=== PATIENT | female | born 1955 | race Caucasian/White ===

== ENCOUNTER 2017-09-11 17:54 | Inpatient (IN) | payer MEDICARE, OTHER ==
[~2017-09-11] VITALS: Ht 154.9 cm; Wt 111.1 kg
[2017-09-11 19:42] LABS: BACTERIA,URINE FEW /HPF (0-FEW); BILIRUBIN,URINE NEG (NEG); CLARITY,URINE CLOUDY; COLOR,URINE YELLOW; GLUCOSE,URINE NEG (NEG); NITRITE,URINE NEG (NEG); RBC,URINE 0 /HPF (0-2); SQUAMOUS EPITHELIAL CELL,UR MANY /LPF; UROBILINOGEN,URINE 0.2 mg/dL (0.2 mg/dL)
[2017-09-11 20:23] LABS: BASO # 0.1 x10^3/uL (0.0-0.2); BASO % 1 % (0-3); EOS # 0.5 x10^3/uL (0.0-0.7); EOS % 4 % (0-3); HEMATOCRIT 36.9 % (36.0-47.0); LYMPH # 2.3 x10^3/uL (1.0-4.8); LYMPH % 19 % (24-48); MEAN CORPUSCULAR HEMOGLOBIN 26 pg (25-35); MEAN CORPUSCULAR HGB CONC 32 g/dL (31-37); MEAN CORPUSCULAR VOLUME 79 fL (79-100); MONO % 8 % (0-9); NEUT # 8.6 x10^3uL (1.8-7.7); NEUT % 69 % (31-73); PLATELET COUNT 184 x10^3/uL (140-400); RED BLOOD COUNT 4.68 x10^6/uL (3.50-5.40); RED CELL DISTRIBUTION WIDTH 14.8 % (11.5-14.5); WHITE BLOOD COUNT 12.4 x10^3/uL (4.0-11.0)
[2017-09-11 20:32] LABS: ALBUMIN 3.2 g/dL (3.4-5.0); ALBUMIN/GLOBULIN RATIO 0.7 (1.0-1.7); CALCIUM 9.4 mg/dL (8.5-10.1); CREATININE 1.2 mg/dL (0.6-1.0); GFR 45.2; MAGNESIUM 2.1 mg/dL (1.8-2.4); POTASSIUM 4.1 mmol/L (3.5-5.1); TOTAL BILIRUBIN 0.4 mg/dL (0.2-1.0); TOTAL PROTEIN 7.5 g/dL (6.4-8.2)
--- NOTE | 2017-09-11 21:03 | PHYS DOC ---
Past History Past Medical History: Anxiety, CHF, COPD, Diabetes, Hypertension Past Surgical History: No Surgical History Alcohol Use: None Drug Use: None Adult General Chief Complaint Chief Complaint: PSYCH EVALUATION HPI HPI 62-year-old male patient resident of intermediate brought to ER for medical clearance for psychiatric admission. [facility] reported that patient had an abusive behavior against the staff. Patient denies any problem. Review of Systems Review of Systems Constitutional: Denies fever or chills [] Eyes: Denies change in visual acuity, redness, or eye pain [] HENT: Denies nasal congestion or sore throat [] Respiratory: Denies cough or shortness of breath [] Cardiovascular: No additional information not addressed in HPI [] GI: Denies abdominal pain, nausea, vomiting, bloody stools or diarrhea [] : Denies dysuria or hematuria [] Musculoskeletal: Denies back pain or joint pain [] Integument: Denies rash or skin lesions [] Neurologic: Denies headache, focal weakness or sensory changes [] Endocrine: Denies polyuria or polydipsia [] All other systems were reviewed and found to be within normal limits, except as documented in this note. Allergies Allergies Allergies Coded Allergies Type Severity Reaction Last Updated Verified Sulfa (Sulfonamide Antibiotics) Allergy Unknown 09/11/17 Yes niacin Allergy Unknown 09/11/17 Yes tramadol Allergy Unknown 09/11/17 Yes Physical Exam Physical Exam Constitutional: Well developed, well nourished, no acute distress, non-toxic appearance. [] HENT: Normocephalic, atraumatic, bilateral external ears normal, oropharynx moist, no oral exudates, nose normal. [] Eyes: PERRLA, EOMI, conjunctiva normal, no discharge. [] Neck: Normal range of motion, no tenderness, supple, no stridor. [] Cardiovascular:Heart rate regular rhythm, no murmur [] Lungs & Thorax: Bilateral breath sounds clear to auscultation [] Abdomen: Bowel sounds normal, soft, no tenderness, no masses, no pulsatile masses. [] Skin: Warm, dry, no erythema, no rash. [] Back: No tenderness, no CVA tenderness. [] Extremities: No tenderness, no cyanosis, no clubbing, ROM intact, no edema. [] Neurologic: Alert and oriented X 2, normal motor function, normal sensory function, no focal deficits noted. [] Psychologic: Affect normal, judgement normal, mood normal. [] Current Patient Data Vital Signs Vital Signs Date Time Temp Pulse Resp B/P (MAP) Pulse Ox O2 Delivery O2 Flow Rate FiO2 09/11/17 18:00 98.1 86 22 98 Nasal Cannula 3.0 Lab Results Laboratory Tests Test 09/11/17 19:09 09/11/17 19:41 Urine Collection Type Unknown Urine Color Yellow Urine Clarity Cloudy Urine pH 6.5 Urine Specific [place] <=1.005 Urine Protein Neg (NEG-TRACE) Urine Glucose (UA) Neg mg/dL (NEG) Urine Ketones (Stick) Neg mg/dL (NEG) Urine Blood Neg (NEG) Urine Nitrite Neg (NEG) Urine Bilirubin Neg (NEG) Urine Urobilinogen Dipstick 0.2 mg/dL (0.2 mg/dL) Urine Leukocyte Esterase Large (NEG) Urine RBC 0 /HPF (0-2) Urine WBC 11-20 /HPF (0-4) Urine Squamous Epithelial Cells Many /LPF Urine Bacteria Few /HPF (0-FEW) White Blood Count 12.4 x10^3/uL (4.0-11.0) H Red Blood Count 4.68 x10^6/uL (3.50-5.40) Hemoglobin 12.0 g/dL (12.0-15.5) Hematocrit 36.9 % (36.0-47.0) Mean Corpuscular Volume 79 fL (79-100) Mean Corpuscular Hemoglobin 26 pg (25-35) Mean Corpuscular Hemoglobin Concent 32 g/dL (31-37) Red Cell Distribution Width 14.8 % (11.5-14.5) H Platelet Count 184 x10^3/uL (140-400) Neutrophils (%) (Auto) 69 % (31-73) Lymphocytes (%) (Auto) 19 % (24-48) L Monocytes (%) (Auto) 8 % (0-9) Eosinophils (%) (Auto) 4 % (0-3) H Basophils (%) (Auto) 1 % (0-3) Neutrophils # (Auto) 8.6 x10^3uL (1.8-7.7) H Lymphocytes # (Auto) 2.3 x10^3/uL (1.0-4.8) Monocytes # (Auto) 1.0 x10^3/uL (0.0-1.1) Eosinophils # (Auto) 0.5 x10^3/uL (0.0-0.7) Basophils # (Auto) 0.1 x10^3/uL (0.0-0.2) Sodium Level 143 mmol/L (136-145) Potassium Level 4.1 mmol/L (3.5-5.1) Chloride Level 103 mmol/L (98-107) Carbon Dioxide Level 34 mmol/L (21-32) H Anion Gap 6 (6-14) Blood Urea Nitrogen 27 mg/dL (7-20) H Creatinine 1.2 mg/dL (0.6-1.0) H Estimated GFR (Cockcroft-Gault) 45.2 BUN/Creatinine Ratio 23 (6-20) H Glucose Level 77 mg/dL (70-99) Calcium Level 9.4 mg/dL (8.5-10.1) Magnesium Level 2.1 mg/dL (1.8-2.4) Total Bilirubin 0.4 mg/dL (0.2-1.0) Aspartate Amino Transferase (AST) 11 U/L (15-37) L Alanine Aminotransferase (ALT) 24 U/L (14-59) Alkaline Phosphatase 101 U/L (46-116) Total Protein 7.5 g/dL (6.4-8.2) Albumin 3.2 g/dL (3.4-5.0) L Albumin/Globulin Ratio 0.7 (1.0-1.7) L EKG EKG [EKG interpreted by me. EKG at 1827 showed normal sinus rhythm at rate of 88, Q- wave in inferior leads, no acute ST and T wave abnormality] Radiology/Procedures Radiology/Procedures [] Course & Med Decision Making Course & Med Decision Making Pertinent Labs reviewed. (See chart for details) [] Dragon Disclaimer Dragon Disclaimer This electronic medical record was generated, in whole or in part, using a voice recognition dictation system. Departure Departure: Impression: Primary Impression: Medical clearance for psychiatric admission Additional Impressions: Urinary tract infection Renal insufficiency Disposition: ADMITTED INPATIENT ([facility] psych unit at 2100) Condition: STABLE Problem Qualifiers CHAR SOTO MD Sep 11, 2017 21:03
[2017-09-11] MEDS ORDERED: CIPROFLOXACIN HCL 500 MG TABLET PO ONE (21:15)
[2017-09-11] MEDS ORDERED: ASPI-612 PO (22:28)
[2017-09-11] MEDS ORDERED: BISA10SU55 RC (22:28)
[2017-09-11] MEDS ORDERED: ZOLP5TAB PO (22:28)
[2017-09-11] MEDS ORDERED: ALBU1.25 NEB (22:28)
[2017-09-11] MEDS ORDERED: DOXY100T PO (22:28)
[2017-09-11] MEDS ORDERED: BUDE0.5A3 IH (22:28)
[2017-09-11] MEDS ORDERED: CITA20TA9 PO (22:28)
[2017-09-11] MEDS ORDERED: MELA3TAB2 PO (22:28)
[2017-09-11] MEDS ORDERED: METO10TA81 PO (22:28)
[2017-09-11] MEDS ORDERED: SPIR25TA PO (22:28)
[2017-09-11] MEDS ORDERED: VENL75TA PO (22:28)
[2017-09-11] MEDS ORDERED: ATOR40TA59 PO (22:28)
[2017-09-11] MEDS ORDERED: NITR0.4T22 SL (22:28)
[2017-09-11] MEDS ORDERED: IPRA3AMP NEB (22:28)
[2017-09-11] MEDS ORDERED: POLY17PO5 PO (22:28)
[2017-09-11] MEDS ORDERED: LORA10TA3 PO (22:28)
[2017-09-11] MEDS ORDERED: MICO45CR3 TP (22:28)
[2017-09-11] MEDS ORDERED: CELE200C PO (22:28)
[2017-09-11] MEDS ORDERED: METO25TA4 PO (22:28)
[2017-09-11] MEDS ORDERED: FURO40TA4 PO (22:28)
[2017-09-11] MEDS ORDERED: HYDR-2762 PO ×2 (22:28)
[2017-09-11] MEDS ORDERED: PREG100C PO (22:28)
[2017-09-11] MEDS ORDERED: PROP10DR3 OU (22:28)
[2017-09-11] MEDS ORDERED: MONT10TA9 PO (22:28)
[2017-09-11] MEDS ORDERED: INSU100I13 SQ (22:28)
[2017-09-11] MEDS ORDERED: MAG360OR24 PO (22:28)
[2017-09-11] MEDS ORDERED: PANT40TA5 PO (22:28)
[2017-09-11] MEDS ORDERED: MUPI1OIN NS (22:28)
[2017-09-11] MEDS ORDERED: RIVA1PAT23 TD (22:28)
[2017-09-11] MEDS ORDERED: THEO200C PO (22:28)
[2017-09-11] MEDS ORDERED: GABA-585 PO (22:28)
[2017-09-11] MEDS ORDERED: OMEG1CAP30 PO (22:28)
[2017-09-11] MEDS ORDERED: INSU100I17 SQ (22:28)
--- NOTE | 2017-09-11 23:00 | NUR ---
Admission Note with Justification for Admission to [facility] Patient admitted to [facility] for protective oversight for emergency stabilization of acute psychiatric crisis. Pt admitted from: Hospital ER Mode of arrival: EMS Accompanied By: [facility] Staff Precipitating behaviors that initiated intake and admission: delusional, paranoia, threatening staff, self-isolating. Description of failure of out patient attempts at stabilization in previous setting list behavior and medication trials: saw psychologist and clinical delinquency prevention social worker, increased effexor dose Behaviors and assessment findings upon admission: calm, cooperative, pleasant A&O x4 Plan: Admit for protective oversight for adjustment and stabilization of medications, behaviors and mood. Intense treatment regimen including groups, medication adjustments, therapy, consistent regimen for ADL's, self care, and sleep hygiene. Daily monitoring by Inpatient staff, Psychiatry, and Medical Physician.
[2017-09-11] MEDS ORDERED: MAGNESIUM HYDROXIDE 2,400 MG/30 ML ORAL.SUSP. PO PRN (23:30)
[2017-09-11] MEDS ORDERED: METHYL SALICYLATE/MENTHOL TOPICAL OINTMENT 29GM TUBE. TP PRN (23:30)
[2017-09-11] MEDS ORDERED: ACETAMINOPHEN 325 MG TABLET PO PRN (23:30)
[2017-09-11] MEDS ORDERED: MAG HYDROX/AL HYDROX/SIMETH 30 ML ORAL.SUSP PO PRN ×2 (23:30→23:45)
[2017-09-11] MEDS ORDERED: NON FORMULARY ITEM (Albuterol Sulfate (Albuterol Sulfate Neb Soln) 1.25 MG) NEB PRN (23:45)
[2017-09-11] MEDS ORDERED: HYDROcodone/APAP 7.5/325MG 1 TAB TABLET PO PRN ×2 (23:45)
[2017-09-11] MEDS ORDERED: NITROGLYCERIN SUBLINGUAL 0.4 MG BOTTLE OF 25. SL PRN (23:45)
[2017-09-11] MEDS ORDERED: BISACODYL 10 MG SUPP.RECT RC PRN (23:45)
[2017-09-12] MEDS ORDERED: ALBUTEROL SULFATE 2.5 MG/3 ML NEBU. NEB PRN (00:30)
[2017-09-12 02:47] VITALS: BP 136/45
[2017-09-12] MEDS ORDERED: IPRATRPIUM/ALBUTEROL 0.5/2.5MG 3 ML NEBU. ONE (05:17)
[2017-09-12] MEDS: DOXYCYCLINE HYCLATE 100 MG TABLET PO SCH ×2 (05:55→17:56)
[2017-09-12] MEDS: SPIRONOLACTONE 25 MG TABLET PO SCH (05:55)
[2017-09-12 06:02] VITALS: BP 158/64
[2017-09-12] MEDS: IPRATRPIUM/ALBUTEROL 0.5/2.5MG 3 ML NEBU. NEB SCH ×4 (06:11→22:03)
--- NOTE | 2017-09-12 06:44 | EKG ---
[address] [address] Test Date: 2017-09-11 Test Time: 18:27:20 Pat Name: VALERIA YU Department: Room: [address] [place] [address] Gender: F Bolt Maker: : [id number] Requested By: CHAR SOTO Order Number: [id number] Reading MD: Boris Bhatti Measurements Intervals [place] Rate: 88 P: 59 PA: 144 QRS: 26 QRSD: 102 T: 38 QT: 394 QTc: 480 Interpretive Statements SINUS RHYTHM QRS(T) CONTOUR ABNORMALITY CONSISTENT WITH INFERIOR INFARCT PROBABLY OLD ABNORMAL ECG RI6.01 No previous ECG available for comparison Electronically Signed On 09-18-2017 9:15:19 [employer] by Boris Bhatti
[2017-09-12] MEDS ORDERED: POLYVINYL ALCOHOL 1.4% OPHTH SOLUTION 15ML BOTTLE. OU PRN (07:15)
--- NOTE | 2017-09-12 07:32 | NUR ---
SW reviewed Pt insurance upon admit. Face sheet, C-Snap, and intake state Pt insurance is [employer].
[2017-09-12] MEDS: MUPIROCIN 2% TOPICAL OINTMENT 22GM TUBE. TP SCH ×2 (08:30→20:41)
[2017-09-12] MEDS: POLYETHYLENE GLYCOL 3350 17 GM PACKET. PO SCH ×3 (08:32→21:00)
[2017-09-12] MEDS: THEOPHYLLINE ANHYDROUS 400 MG TABLET.ER. PO SCH (08:32)
[2017-09-12] MEDS: RIVASTIGMINE 9.5MG PATCH. TD SCH (08:32)
[2017-09-12] MEDS: PANTOPRAZOLE 40 MG TABLET. PO SCH (08:33)
[2017-09-12] MEDS: GABAPENTIN 100 MG CAPSULE. PO SCH ×3 (08:34→20:35)
[2017-09-12] MEDS: ASPIRIN ENTERIC COATED 81 MG TABLET.DR. PO SCH (08:34)
[2017-09-12] MEDS: CETIRIZINE HCL 10 MG TABLET PO SCH (08:34)
[2017-09-12] MEDS: OMEGA-3 FATTY ACIDS/FISH OIL 1,000 MG CAPSULE. PO SCH ×2 (08:34→20:37)
[2017-09-12] MEDS: CELECOXIB 200 MG CAPSULE PO SCH (08:34)
[2017-09-12] MEDS: VENLAFAXINE 75 MG TABLET. PO SCH ×2 (08:34→20:35)
[2017-09-12] MEDS: METOPROLOL TART IMMED RELEASE 25 MG TABLET PO SCH ×2 (08:34→20:36)
[2017-09-12] MEDS: FUROSEMIDE 40 MG TABLET PO SCH ×2 (08:35→15:03)
[2017-09-12] MEDS: CITALOPRAM 20 MG TABLET. PO SCH (08:35)
[2017-09-12] MEDS: METOCLOPRAMIDE 5 MG TABLET PO SCH ×2 (08:35→15:03)
[2017-09-12] MEDS: INSULIN ASPART 300 UNITS/3 ML INSULN.PEN SQ SCH ×3 (08:43→17:18)
[2017-09-12] MEDS: INSULIN DETEMIR 300 UNITS/3 ML INSULN.PEN. SQ SCH ×2 (08:45→20:44)
[2017-09-12] MEDS ORDERED: OMEGA PO SCH (09:00)
[2017-09-12] MEDS ORDERED: FISH OIL PO SCH (09:00)
[2017-09-12] MEDS ORDERED: INSULIN GLARGINE 300 UNITS/3 ML INSULN.PEN. SQ SCH (09:00)
[2017-09-12] MEDS ORDERED: DHA PO SCH (09:00)
[2017-09-12] MEDS ORDERED: EPA PO SCH (09:00)
[2017-09-12] MEDS ORDERED: PREGABALIN 100 MG CAPSULE PO SCH (09:00)
--- NOTE | 2017-09-12 11:00 | NUR ---
During AM assessment this RN asked pt why she was in the hospital. Pt stated "They told me I needed to be checked for Alzheimer's or Dementia." Pt then went on to talk about how the workers at her facility are doing drugs and are very mean to her. Pt stated that she does not sleep well there because there is a girl that works there that is always picking on her, so she does not like to leave her room. Will continue to monitor.
--- NOTE | 2017-09-12 11:15 | NUR ---
KODY completed Authorization on Dennise with Chilango Gilmore at [phone]. Auth number [id number]. Review with Chilango Gilmore on Saturday.
[2017-09-12] MEDS: BUDESONIDE 0.5 MG/2 ML NEBU IH SCH ×2 (11:56→22:03)
[2017-09-12] MEDS: MICONAZOLE NITRATE 2% TOPICAL CREAM 14GM TUBE. TP SCH ×3 (11:57→21:00)
--- NOTE | 2017-09-12 13:46 | NUR ---
Behavior Intervention Response and Plan: BIRP Note: Behavior: Assumed Care of patient, patient located in Patient Room at shift change. Patient exhibited the following behavior Calm, Interactive, Compliant. Brief assessment on rounds of vital signs, medication needs, lab studies, and pain. Treatment plan problems 1-2. Intervention: Patient assessed and the following interventions initiated safety checks 15 Minute Checks Cognitive Assessment , Head to toe Assessment , Medications. Response: After interactions and interventions patient responded in the following manner, Interactive , Cooperative ,Delusions. Continue to assess behaviors and condition will continue to monitor throughout the shift as needed. Patient educated on ADL's, and hand hygiene. Plan: Continue to monitor Master Treatment Plan for patient's progress toward short term goals of Decreased Agitation, Improved Mood, exterminator helper goals to return to previous living setting vs placement. Continue to assess patient for changes in above assessment. Monitor for medication needs, pain, and safety concerns. Hourly rounding performed to ensure safe environment.
[2017-09-12] MEDS: PREGABALIN 50 MG CAPSULE PO SCH ×2 (15:04→20:37)
[2017-09-12 15:37] VITALS: BP 128/59
[2017-09-12 17:40] LABS: THYROID STIM HORMONE (TSH) 1.25 uIU/mL (0.358-3.740)
[2017-09-12] MEDS ORDERED: PROMETHAZINE 25 MG TABLET. PO PRN (19:00)
[2017-09-12 19:08] LABS: T3 TOTAL 117 ng/dL (71-180); THYROXINE 7.3 ug/dL (4.5-12.0)
--- NOTE | 2017-09-12 19:24 | NUR ---
Dr. Lozano ordered Risperdal QHS whoever there is a reaction with pts schedule Reglan. Pharmacy suggested switching Reglan with Promethazine. Orders received from Dr. Jeronimo for PRN Promethazine Q4hrs and to d/c Reglan. Will continue to monitor.
--- NOTE | 2017-09-12 19:33 | PDOC ---
Exam Note: Gagan Note: Please also refer to the separate dictated note~for this date of service dictated separately.~Patient seen individually. Discussed the patient with Nursing staff reviewed the chart.~Reviewed interim history and current functioning. Reviewed vital signs,~Labs/ Radiology~and current medications noted below. Continue current treatment with the changes noted in the dictated addendum note Assessment: Vital Signs: Vital Signs Date Time Temp Pulse Resp B/P (MAP) Pulse Ox O2 Delivery O2 Flow Rate FiO2 09/12/17 15:37 97.8 84 18 128/59 (82) 94 09/12/17 11:56 3.0 09/11/17 18:00 Nasal Cannula Labs: Laboratory Tests Test 09/11/17 19:41 09/12/17 07:33 09/12/17 11:12 09/12/17 16:42 White Blood Count 12.4 x10^3/uL (4.0-11.0) H Red Blood Count 4.68 x10^6/uL (3.50-5.40) Hemoglobin 12.0 g/dL (12.0-15.5) Hematocrit 36.9 % (36.0-47.0) Mean Corpuscular Volume 79 fL (79-100) Mean Corpuscular Hemoglobin 26 pg (25-35) Mean Corpuscular Hemoglobin Concent 32 g/dL (31-37) Red Cell Distribution Width 14.8 % (11.5-14.5) H Platelet Count 184 x10^3/uL (140-400) Neutrophils (%) (Auto) 69 % (31-73) Lymphocytes (%) (Auto) 19 % (24-48) L Monocytes (%) (Auto) 8 % (0-9) Eosinophils (%) (Auto) 4 % (0-3) H Basophils (%) (Auto) 1 % (0-3) Neutrophils # (Auto) 8.6 x10^3uL (1.8-7.7) H Lymphocytes # (Auto) 2.3 x10^3/uL (1.0-4.8) Monocytes # (Auto) 1.0 x10^3/uL (0.0-1.1) Eosinophils # (Auto) 0.5 x10^3/uL (0.0-0.7) Basophils # (Auto) 0.1 x10^3/uL (0.0-0.2) Sodium Level 143 mmol/L (136-145) Potassium Level 4.1 mmol/L (3.5-5.1) Chloride Level 103 mmol/L (98-107) Carbon Dioxide Level 34 mmol/L (21-32) H Anion Gap 6 (6-14) Blood Urea Nitrogen 27 mg/dL (7-20) H Creatinine 1.2 mg/dL (0.6-1.0) H Estimated GFR (Cockcroft-Gault) 45.2 BUN/Creatinine Ratio 23 (6-20) H Glucose Level 77 mg/dL (70-99) Calcium Level 9.4 mg/dL (8.5-10.1) Magnesium Level 2.1 mg/dL (1.8-2.4) Iron Level 43 ug/dL (50-170) L Total Iron Binding Capacity 359 ug/dL (250-450) Iron Saturation 12 % (15-34) L Total Bilirubin 0.4 mg/dL (0.2-1.0) Aspartate Amino Transferase (AST) 11 U/L (15-37) L Alanine Aminotransferase (ALT) 24 U/L (14-59) Alkaline Phosphatase 101 U/L (46-116) Total Protein 7.5 g/dL (6.4-8.2) Albumin 3.2 g/dL (3.4-5.0) L Albumin/Globulin Ratio 0.7 (1.0-1.7) L Triglycerides Level 104 mg/dL (0-150) Cholesterol Level 143 mg/dL (0-200) LDL Cholesterol, Calculated 78 mg/dL (0-100) VLDL Cholesterol, Calculated 20 mg/dL (0-40) Non-HDL Cholesterol Calculated 98 mg/dL (0-129) HDL Cholesterol 45 mg/dL (40-60) Cholesterol/HDL Ratio 3.0 Vitamin B12 Level 519 pg/mL (247-911) 25-Hydroxy Vitamin D Total 10.6 ng/mL (30-100) L Thyroid Stimulating Hormone (TSH) 1.250 uIU/mL (0.358-3.740) Thyroxine (T4) 7.3 ug/dL (4.5-12.0) Total Triiodothyronine (TT3) 117 ng/dL (71-180) Rapid Plasma Reagin Pending Glucose (Fingerstick) 143 mg/dL (70-99) H 169 mg/dL (70-99) H 129 mg/dL (70-99) H Test 09/12/17 19:08 Glucose (Fingerstick) 165 mg/dL (70-99) H Current Medications: Meds: Current Medications Ciprofloxacin (Cipro) 500 mg 1X ONCE PO Last administered on 09/11/17at 21:31; Start 09/11/17 at 21:15; Stop 09/11/17 at 21:16; Status DC Acetaminophen (Tylenol) 650 mg PRN Q6HRS PRN PO PAIN / TEMP; Start 09/11/17 at 23:30 Multi-Ingredient Ointment (Analgesic Morrow) 1 penelope PRN QID PRN TP MUSCLE PAIN; Start 09/11/17 at 23:30 Al Hydroxide/Mg Hydroxide (Mylanta Plus Xs) 15 ml PRN AFTMEALHC PRN PO DYSPEPSIA Last administered on 09/12/17at 09:42; Start 09/11/17 at 23:30 Magnesium Hydroxide (Milk Of Magnesia) 2,400 mg PRN QHS PRN PO CONSTIPATION; Start 09/11/17 at 23:30 Citalopram Hydrobromide (CeleXA) 20 mg DAILY PO Last administered on 09/12/17at 08:35; Start 09/12/17 at 09:00 Rivastigmine (Exelon) 1 patch DAILY TD Last administered on 09/12/17at 08:32; Start 09/12/17 at 09:00 Venlafaxine HCl (Effexor) 75 mg BID PO Last administered on 09/12/17at 08:34; Start 09/12/17 at 09:00 Melatonin 10 mg HS PO ; Start 09/12/17 at 21:00; Stop 09/12/17 at 21:00; Status DC Aspirin (Aspirin Enteric Coated) 81 mg DAILY PO Last administered on 09/12/17at 08:34; Start 09/12/17 at 09:00 Bisacodyl (Dulcolax Supp) 10 mg PRN DAILY PRN RC CONSTIPATION; Start 09/11/17 at 23:45 Budesonide (Pulmicort) 0.5 mg BID IH Last administered on 09/12/17at 11:56; Start 09/12/17 at 09:00 Celecoxib (CeleBREX) 200 mg DAILY PO Last administered on 09/12/17at 08:34; Start 09/12/17 at 09:00 Doxycycline Hyclate (Vibra-Tab) 100 mg BID66 PO Last administered on 09/12/17at 17:56; Start 09/12/17 at 06:00 Furosemide (Lasix) 40 mg BID92 PO Last administered on 09/12/17at 15:03; Start 09/12/17 at 09:00 Gabapentin (Neurontin) 100 mg TID PO Last administered on 09/12/17at 15:03; Start 09/12/17 at 09:00 Acetaminophen/ Hydrocodone Bitart (Lortab 7.5/325) 1 tab PRN Q4HRS PRN PO PAIN ; Start 09/11/17 at 23:45 Acetaminophen/ Hydrocodone Bitart (Lortab 7.5/325) 1 tab PRN QID PRN PO PAIN; Start 09/11/17 at 23:45 Insulin Aspart (NovoLOG) 22 units TIDAC SQ Last administered on 09/12/17at 17:18 ; Start 09/12/17 at 07:30 Insulin Glargine (Lantus) 70 units BID SQ ; Start 09/12/17 at 09:00; Stop at 09:00; Status DC Albuterol/ Ipratropium (Duoneb) 3 ml RTQID NEB Last administered on 09/12/17at 11:56; Start 09/12/17 at 08:00 Metoclopramide HCl (Reglan) 2.5 mg TID PO Last administered on 09/12/17at 15:03 ; Start 09/12/17 at 09:00; Stop 09/12/17 at 19:21; Status DC Metoprolol Tartrate (Lopressor) 25 mg BID PO Last administered on 09/12/17at 08: 34; Start 09/12/17 at 09:00 Montelukast Sodium (Singulair) 10 mg HS PO ; Start 09/12/17 at 21:00 Nitroglycerin (Nitrostat) 0.4 mg PRN Q5MIN PRN SL CHEST PAIN; Start 09/11/17 at 23:45 Pantoprazole Sodium (Protonix) 20 mg DAILYAC PO Last administered on 09/12/17at 08:33; Start 09/12/17 at 07:30 Polyethylene Glycol (miraLAX) 17 gm BID PO Last administered on 09/12/17at 08:32 ; Start 09/12/17 at 09:00 Pregabalin (Lyrica) 100 mg TID PO Last administered on 09/12/17at 08:35; Start 09/12/17 at 09:00; Stop 09/12/17 at 15:02; Status DC Spironolactone (Aldactone) 25 mg DAILY07 PO Last administered on 09/12/17at 05: 55; Start 09/12/17 at 07:00 Zolpidem Tartrate (Ambien) 5 mg QHS PO ; Start 09/12/17 at 21:00; Stop 09/12/17 at 21:00; Status DC Non-Formulary Medication 1.25 mg PRN PRN NEB SHORTNESS OF BREATH; Start at 23:45; Status UNV Atorvastatin Calcium (Lipitor) 40 mg HS PO ; Start 09/12/17 at 21:00 Cetirizine HCl (ZyrTEC) 10 mg DAILY PO Last administered on 09/12/17at 08:34; Start 09/12/17 at 09:00 Al Hydroxide/Mg Hydroxide (Mylanta Plus Xs) 10 ml PRN AFTMEAL PRN PO DYSPEPSIA ; Start 09/11/17 at 23:45 Miconazole Nitrate (Monistat-Derm) 1 penelope BID TP Last administered on 09/12/17at 11:57; Start 09/12/17 at 09:00 Mupirocin (Bactroban) 1 penelope BID TP Last administered on 09/12/17at 08:30; Start 09/12/17 at 09:00 Non-Formulary Medication 2 each BID PO ; Start 09/12/17 at 09:00; Status UNV Fish Oil (Fish Oil) 2,000 mg BID PO Last administered on 09/12/17at 08:34; Start 09/12/17 at 09:00 Artificial Tears (Artificial Tears) 2 drop PRN QID PRN OU DRY EYE; Start at 07:15 Theophylline (Theophylline Extended Release) 200 mg DAILY PO Last administered on 09/12/17at 08:32; Start 09/12/17 at 09:00 Albuterol Sulfate (Ventolin) 2.5 mg PRN Q6HRS PRN NEB SHORTNESS OF BREATH; Start 09/12/17 at 00:30 Albuterol/ Ipratropium (Duoneb) 3 ml STK-MED ONCE .ROUTE ; Start 09/12/17 at 05: 17; Stop 09/12/17 at 05:18; Status DC Insulin Detemir (Levemir) 70 units BID SQ Last administered on 09/12/17at 08:45 ; Start 09/12/17 at 09:00 Melatonin 6 mg HS PO ; Start 09/12/17 at 21:00 Trazodone HCl (Desyrel) 100 mg QHS PO ; Start 09/12/17 at 21:00 Trazodone HCl (Desyrel) 100 mg PRN QHS PRN PO insomnia ; Start 09/12/17 at 21: 00 Pregabalin (Lyrica) 100 mg TID PO Last administered on 09/12/17at 15:04; Start 09/12/17 at 14:00 Vitamin D (Vitamin D3) 50,000 unit WEEKLY PO ; Start 09/19/17 at 09:00 Promethazine HCl (Phenergan) 12.5 mg PRN Q4HRS PRN PO NAUSEA/VOMITING; Start at 19:00 Risperidone (RisperDAL) 0.5 mg QHS PO ; Start 09/12/17 at 21:00 Active Scripts Active Reported Venlafaxine Hcl 75 Mg Tablet 75 Mg PO BID Naldo-24 (Theophylline Anhydrous) 200 Mg Cap.er.24h 200 Mg PO DAILY Systane Ultra 0.4-0.3% Eye Drp (Propylene Glycol/Peg 400) 10 Ml Drops 2 Drop OU PRN QID PRN Pulmicort (Budesonide) 0.5 Mg/2 Ml Ampul.neb 0.5 Mg IH BID Pantoprazole Sodium 40 Mg Tablet.dr 20 Mg PO DAILY Novolog Flexpen (Insulin Aspart) 100 Unit/1 Ml Insuln.pen 22 Units SQ TIDAC Hydrocodone-Apap 7.5-325 (Hydrocodone Bit/Acetaminophen) 1 Each Tablet 1 Tab PO QID PRN Hydrocodone-Apap 7.5-325 (Hydrocodone Bit/Acetaminophen) 1 Each Tablet 1 Tab PO PRN Q4HRS PRN NITROGLYCERIN SubLingual (Nitroglycerin) 0.4 Mg Tab.subl 0.4 Mg SL PRN Q5MIN PRN Alum-Mag Hydroxide-Simeth Liq (Mag Hydrox/Al Hydrox/Simeth) 360 Ml Oral.susp 10 Ml PO PRN AFTMEAL PRN Montelukast Sodium Tablet (Montelukast Sodium) 10 Mg Tablet 10 Mg PO DAILY Miralax (Polyethylene Glycol 3350) 17 Gm Powd.pack 17 Gm PO BID Miconazole Nitrate 45 Gm Cream.appl 1 Penelope TP BID Metoprolol Tartrate 25 Mg Tablet 25 Mg PO BID Reglan (Metoclopramide Hcl) 10 Mg Tablet 2.5 Mg PO TID Melatonin 3 Mg Tablet 10 Mg PO HS Lyrica (Pregabalin) 100 Mg Capsule 100 Mg PO TID Lantus Solostar (Insulin Glargine,Hum.rec.anlog) 100 Unit/1 Ml Insuln.pen 70 Units SQ BID Gabapentin 100 Mg Capsule 100 Mg PO TID Furosemide 40 Mg Tablet 40 Mg PO BID Fish Oil 1,000 Mg Softgel ([place]-3/Dha/Epa/Fish Oil) 1 Each Capsule 2 Each PO BID Fish Oil 1,000 Mg Softgel ([place]-3/Dha/Epa/Fish Oil) 1 Each Capsule 2 Each PO BID EXELON 9.5mg/24hr (Rivastigmine) 1 Each Patch.td24 1 Patch TD Duoneb 0.5-3(2.5) Mg/3 Ml (Albuterol/Ipratropium) 3 Ml Ampul.neb 3 Ml NEB QID Dulcolax (Bisacodyl) 10 Mg Supp.rect 10 Mg RC PRN DAILY PRN Doxycycline Hyclate 100 Mg Tablet 100 Mg PO BID Loratadine 10 Mg Tablet 10 Mg PO DAILY Celexa (Citalopram Hydrobromide) 20 Mg Tablet 20 Mg PO DAILY Celebrex (Celecoxib) 200 Mg Capsule 200 Mg PO DAILY Bactroban Nasal (Mupirocin Calcium) 1 Gm Oint...g. 1 Penelope NS BID Atorvastatin Calcium 40 Mg Tablet 40 Mg PO DAILY Aspirin Ec (Aspirin) 81 Mg Tablet.dr 81 Mg PO DAILY Ambien (Zolpidem Tartrate) 5 Mg Tablet 5 Mg PO QHS Aldactone (Spironolactone) 25 Mg Tablet 25 Mg PO DAILY07 Albuterol Sulfate Neb Soln (Albuterol Sulfate) 1.25 Mg/3 Ml Vial.neb 1.25 Mg NEB PRN PRN I have reviewed the current psychotropics carefully including drug interactions. Risk benefit ratio favors no change other than as noted in my dictated progress note. Diagnosis: Problems: (1) Medical clearance for psychiatric admission ROSA GRAMAJO MD Sep 12, 2017 19:33
--- NOTE | 2017-09-12 20:00 | NUR ---
Pt refs miralax stating she is having loose stools.
[2017-09-12] MEDS: risperiDONE 0.5 MG TABLET. PO SCH (20:42)
[2017-09-12] MEDS: MELATONIN 3 MG TABLET PO SCH (20:42)
[2017-09-12] MEDS: ATORVASTATIN CALCIUM 20 MG TABLET PO SCH (20:42)
[2017-09-12] MEDS: MONTELUKAST 10 MG TABLET. PO SCH (20:42)
[2017-09-12] MEDS: traZODone 100 MG TABLET. PO SCH (20:43)
[2017-09-12] MEDS ORDERED: traZODone 100 MG TABLET. PO PRN (21:00)
[2017-09-12] MEDS ORDERED: ZOLPIDEM 5 MG TABLET. PO SCH (21:00)
[2017-09-12] MEDS ORDERED: MELATONIN 3 MG TABLET PO SCH (21:00)
--- NOTE | 2017-09-12 21:38 | NUR ---
Behavior Intervention Response and Plan: BIRP Note: Behavior: Assumed Care of patient, patient located in Patient Room at shift change. Patient exhibited the following behavior Calm, Able to Focus on Task, Interactive. Brief assessment on rounds of vital signs, medication needs, lab studies, and pain. Treatment plan problems .1&2 Intervention: Patient assessed and the following interventions initiated safety checks 15 Minute Checks Cognitive Assessment , Head to toe Assessment , Medications. Response: After interactions and interventions patient responded in the following manner, Appropriate , Compliant ,Cooperative. Continue to assess behaviors and condition will continue to monitor throughout the shift as needed. Patient educated on ADL's, and hand hygiene. Plan: Continue to monitor Master Treatment Plan for patient's progress toward short term goals of Improved Mood, Decreased Anxiety, snf goals to return to previous living setting vs placement. Continue to assess patient for changes in above assessment. Monitor for medication needs, pain, and safety concerns. Hourly rounding performed to ensure safe environment.
[2017-09-13] MEDS: SPIRONOLACTONE 25 MG TABLET PO SCH (05:44)
[2017-09-13] MEDS: DOXYCYCLINE HYCLATE 100 MG TABLET PO SCH ×2 (05:44→17:54)
[2017-09-13] MEDS: IPRATRPIUM/ALBUTEROL 0.5/2.5MG 3 ML NEBU. NEB SCH ×4 (05:56→20:19)
[2017-09-13 06:00] VITALS: BP 148/69
[2017-09-13] MEDS: CELECOXIB 200 MG CAPSULE PO SCH (07:55)
[2017-09-13] MEDS: POLYETHYLENE GLYCOL 3350 17 GM PACKET. PO SCH ×2 (07:55→19:47)
[2017-09-13] MEDS: FUROSEMIDE 40 MG TABLET PO SCH ×2 (07:55→12:46)
[2017-09-13] MEDS: GABAPENTIN 100 MG CAPSULE. PO SCH ×3 (07:56→19:46)
[2017-09-13] MEDS: CITALOPRAM 20 MG TABLET. PO SCH (07:56)
[2017-09-13] MEDS: ASPIRIN ENTERIC COATED 81 MG TABLET.DR. PO SCH (07:56)
[2017-09-13] MEDS: PANTOPRAZOLE 40 MG TABLET. PO SCH (07:56)
[2017-09-13] MEDS: OMEGA-3 FATTY ACIDS/FISH OIL 1,000 MG CAPSULE. PO SCH ×2 (07:56→19:45)
[2017-09-13] MEDS: PREGABALIN 50 MG CAPSULE PO SCH ×3 (07:56→19:51)
[2017-09-13] MEDS: CETIRIZINE HCL 10 MG TABLET PO SCH (07:57)
[2017-09-13] MEDS: METOPROLOL TART IMMED RELEASE 25 MG TABLET PO SCH ×2 (07:57→19:47)
[2017-09-13] MEDS: VENLAFAXINE 75 MG TABLET. PO SCH ×2 (07:57→19:46)
[2017-09-13] MEDS: THEOPHYLLINE ANHYDROUS 400 MG TABLET.ER. PO SCH (07:59)
[2017-09-13] MEDS: MUPIROCIN 2% TOPICAL OINTMENT 22GM TUBE. TP SCH ×2 (07:59→19:52)
[2017-09-13] MEDS: MICONAZOLE NITRATE 2% TOPICAL CREAM 14GM TUBE. TP SCH (07:59)
[2017-09-13] MEDS: INSULIN ASPART 300 UNITS/3 ML INSULN.PEN SQ SCH ×3 (08:00→17:56)
[2017-09-13] MEDS: INSULIN DETEMIR 300 UNITS/3 ML INSULN.PEN. SQ SCH ×2 (08:02→20:36)
[2017-09-13] MEDS: RIVASTIGMINE 9.5MG PATCH. TD SCH (08:02)
[2017-09-13] MEDS: NYSTATIN TOPICAL POWDER 15GM BOTTLE. TP SCH ×2 (09:00→20:36)
--- NOTE | 2017-09-13 09:01 | HP ---
ADMIT DATE: 09/12/2017 PSYCHIATRIC ADMISSION HISTORY/EVALUATION IDENTIFYING DATA: The patient is a 62-year-old female referred to us from [facility] by Dr. Haim Borjas, primary care physician, on account of worsening delusions, marked paranoia, threatening staff, isolating herself. The patient believes things are happening at the facility that is targeting her, believe people at the same facility are doing drugs. She has been getting increasingly aggressive, threatening staff ____ behaviors dangerous, out of control. Having failed outpatient psychiatric intervention, she requires inpatient psychiatric stabilization. CHIEF COMPLAINT: "Yes, they do these things. It is not in my mind." HISTORY OF PRESENT ILLNESS: The patient has a history of major depressive disorder, possible bipolar disorder, borderline personality disorder, anxiety disorder. More recently, she has had marked exacerbation of her psychosis, sleep and appetite changes and has been threatening staff. No active suicidal or homicidal ideation. She does have a history of mood swing/bipolar disorder. PAST PSYCHIATRIC HISTORY: As noted above. PAST MEDICAL HISTORY: The patient has UTI and was treated on Cipro in the ER at [facility]. She does have a history of COPD, CHF, diabetes mellitus, hypertension, sleep apnea, asthma, GERD. Accu-Chek a.c. and at bedtime. CODE STATUS: Full code. ALLERGIES: NIACIN, TRAMADOL, SULFA. She ambulates with a walker. CURRENT PSYCHOTROPICS: Celexa 20 mg a day, Exelon patch 9.5 mg a day, melatonin 6 mg at bedtime, Effexor 75 mg b.i.d., trazodone 100 mg at bedtime, ____ mg p.r.n. FAMILY HISTORY: Noncontributory. SOCIAL HISTORY: No alcohol, drug abuse, physical, sexual or elder abuse history is noted. Not known to be a perpetrator. MENTAL STATUS EXAMINATION: The patient seen individually on 09/12/2017 ____. She is quite anxious, paranoid, suspicious. Speech coherent, abstraction fair, computation impaired, language function intact, attention span short. Mood and affect somewhat labile, quite paranoid, psychotic as I carefully assessed her. Denies active suicidal ideations with threats towards the staff at the alf have been significant. IMPRESSION: Bipolar 1 disorder, mixed with psychotic features; anxiety disorder, unspecified, borderline personality disorder, history of major depressive disorder with psychotic features, urinary tract infection. Rest as above. PLAN: Admit to geropsychiatry unit at [facility]. I will see the patient daily individually from a psychiatric standpoint, medical followup per Dr. Paredes/Dr. Jeronimo. The patient has been quite psychotic. Restart Risperdal 0.5 mg p.o. at bedtime. She is on 2 antidepressants Celexa and Effexor. We will stop the Celexa, continue Effexor. We have also added Zyprexa. We may consider adding Depakote as a mood stabilizer, but I would like to see how she does with the resolution of UTI and the initiation of Risperdal for now and additionally the discontinuation of Celexa together with Effexor, which could be worsening some of her psychotic symptoms as well, especially within the context of bipolar disorder. ROSA GRAMAJO MD DR: NITESH/anika JOB#: [id number] / [id number]
--- NOTE | 2017-09-13 09:45 | NUR ---
Behavior Intervention Response and Plan: BIRP Note: Behavior: Assumed Care of patient, patient located in Dining Room at shift change. Patient exhibited the following behavior Calm, Withdrawn, Compliant. Brief assessment on rounds of vital signs, medication needs, lab studies, and pain. Treatment plan problems . Intervention: Patient assessed and the following interventions initiated safety checks 15 Minute Checks Cognitive Assessment , Head to toe Assessment , Medications. Response: After interactions and interventions patient responded in the following manner, Calm , Compliant ,Cooperative. Continue to assess behaviors and condition will continue to monitor throughout the shift as needed. Patient educated on ADL's, and hand hygiene. 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 Continue to assess patient for changes in above assessment. Monitor for medication needs, pain, and safety concerns. Hourly rounding performed to ensure safe environment.
[2017-09-13] MEDS: BUDESONIDE 0.5 MG/2 ML NEBU IH SCH ×2 (10:07→20:19)
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
--- NOTE | 2017-09-13 15:28 | NUR ---
KODY called and spoke with pt Andrew, Andrew reports pt has not been to a psychiatric facility prior, and hasn't been given a diagnosis that he is aware of prior. At this time pt has no other questions.
--- NOTE | 2017-09-13 15:30 | NUR ---
Activity Therapy Assessment: Patient was sitting quietly within her wheelchair during the assessment. Patient was well dressed and had a neat orientation. Patient uses a wheelchair to ambulate and may need help with some ADLs. Patient also uses an oxygen tank to assist her in breathing. Patient impulses and frustration are controlled during the assessment and observation. Patient makes eye contact, listens, and can clearly communicate and express how she feels. Initial Treatment Goals: To attend 1 group per day that will increase her socialization and motivation. Addendum: 09/16/17 at 1536 by NEIL HOANG ACT Change goal to: Pt. will participate in all groups she is invited to. Nubia
[2017-09-13 16:07] VITALS: BP 122/62
--- NOTE | 2017-09-13 16:51 | NUR ---
pt has been withdrawn to room at times. did come out to day room in afternoon and played cards with another peer. has been compliant with meds and cares. has not voices any paranoid or delusional thoughts thus far. pt out to all meals.
[2017-09-13] MEDS: traZODone 100 MG TABLET. PO SCH (19:45)
[2017-09-13] MEDS: ATORVASTATIN CALCIUM 20 MG TABLET PO SCH (19:45)
[2017-09-13] MEDS: MONTELUKAST 10 MG TABLET. PO SCH (19:45)
[2017-09-13] MEDS: risperiDONE 0.5 MG TABLET. PO SCH (19:45)
--- NOTE | 2017-09-13 19:45 | PDOC ---
Exam Note: Gagan Note: Please also refer to the separate dictated note~for this date of service dictated separately.~Patient seen individually. Discussed the patient with Nursing staff reviewed the chart.~Reviewed interim history and current functioning. Reviewed vital signs,~Labs/ Radiology~and current medications noted below. Continue current treatment with the changes noted in the dictated addendum note Assessment: Vital Signs: Vital Signs Date Time Temp Pulse Resp B/P (MAP) Pulse Ox O2 Delivery O2 Flow Rate FiO2 09/13/17 16:11 98 Nasal Cannula 3.0 09/13/17 16:07 99.0 80 16 122/62 (82) I&O Intake and Output 09/13/17 07:00 Intake Total 840 ml Balance 840 ml Intake Oral 840 ml Labs: Laboratory Tests Test 09/13/17 07:13 09/13/17 11:14 09/13/17 16:32 Glucose (Fingerstick) 98 mg/dL (70-99) 150 mg/dL (70-99) H 126 mg/dL (70-99) H Current Medications: Meds: Current Medications Ciprofloxacin (Cipro) 500 mg 1X ONCE PO Last administered on 09/11/17at 21:31; Start 09/11/17 at 21:15; Stop 09/11/17 at 21:16; Status DC Acetaminophen (Tylenol) 650 mg PRN Q6HRS PRN PO PAIN / TEMP; Start 09/11/17 at 23:30 Multi-Ingredient Ointment (Analgesic [place]) 1 penelope PRN QID PRN TP MUSCLE PAIN; Start 09/11/17 at 23:30 Al Hydroxide/Mg Hydroxide (Mylanta Plus Xs) 15 ml PRN AFTMEALHC PRN PO DYSPEPSIA Last administered on 09/12/17at 09:42; Start 09/11/17 at 23:30 Magnesium Hydroxide (Milk Of Magnesia) 2,400 mg PRN QHS PRN PO CONSTIPATION; Start 09/11/17 at 23:30 Citalopram Hydrobromide (CeleXA) 20 mg DAILY PO Last administered on 09/13/17at 07:56; Start 09/12/17 at 09:00 Rivastigmine (Exelon) 1 patch DAILY TD Last administered on 09/13/17at 08:02; Start 09/12/17 at 09:00 Venlafaxine HCl (Effexor) 75 mg BID PO Last administered on 09/13/17at 07:57; Start 09/12/17 at 09:00 Melatonin 10 mg HS PO ; Start 09/12/17 at 21:00; Stop 09/12/17 at 21:00; Status DC Aspirin (Aspirin Enteric Coated) 81 mg DAILY PO Last administered on 09/13/17at 07:56; Start 09/12/17 at 09:00 Bisacodyl (Dulcolax Supp) 10 mg PRN DAILY PRN RC CONSTIPATION; Start 09/11/17 at 23:45 Budesonide (Pulmicort) 0.5 mg BID IH Last administered on 09/13/17at 10:07; Start 09/12/17 at 09:00 Celecoxib (CeleBREX) 200 mg DAILY PO Last administered on 09/13/17 07:55; Start 09/12/17 at 09:00 Doxycycline Hyclate (Vibra-Tab) 100 mg BID66 PO Last administered on 09/13/17at 17:54; Start 09/12/17 at 06:00 Furosemide (Lasix) 40 mg BID92 PO Last administered on 09/13/17at 12:46; Start 09/12/17 at 09:00 Gabapentin (Neurontin) 100 mg TID PO Last administered on 09/13/17at 12:46; Start 09/12/17 at 09:00 Acetaminophen/ Hydrocodone Bitart (Lortab 7.5/325) 1 tab PRN Q4HRS PRN PO PAIN ; Start 09/11/17 at 23:45 Acetaminophen/ Hydrocodone Bitart (Lortab 7.5/325) 1 tab PRN QID PRN PO PAIN; Start 09/11/17 at 23:45 Insulin Aspart (NovoLOG) 22 units TIDAC SQ Last administered on 09/13/17at 17:56 ; Start 09/12/17 at 07:30 Insulin Glargine (Lantus) 70 units BID SQ ; Start 09/12/17 at 09:00; Stop at 09:00; Status DC Albuterol/ Ipratropium (Duoneb) 3 ml RTQID NEB Last administered on 09/13/17at 16:00; Start 09/12/17 at 08:00 Metoclopramide HCl (Reglan) 2.5 mg TID PO Last administered on 09/12/17at 15:03 ; Start 09/12/17 at 09:00; Stop 09/12/17 at 19:21; Status DC Metoprolol Tartrate (Lopressor) 25 mg BID PO Last administered on 09/13/17at 07: 57; Start 09/12/17 at 09:00 Montelukast Sodium (Singulair) 10 mg HS PO Last administered on 09/12/17at 20:42 ; Start 09/12/17 at 21:00 Nitroglycerin (Nitrostat) 0.4 mg PRN Q5MIN PRN SL CHEST PAIN; Start 09/11/17 at 23:45 Pantoprazole Sodium (Protonix) 20 mg DAILYAC PO Last administered on 09/13/17at 07:56; Start 09/12/17 at 07:30 Polyethylene Glycol (miraLAX) 17 gm BID PO Last administered on 09/13/17at 07:55 ; Start 09/12/17 at 09:00 Pregabalin (Lyrica) 100 mg TID PO Last administered on 09/12/17at 08:35; Start 09/12/17 at 09:00; Stop 09/12/17 at 15:02; Status DC Spironolactone (Aldactone) 25 mg DAILY07 PO Last administered on 09/13/17at 05: 44; Start 09/12/17 at 07:00 Zolpidem Tartrate (Ambien) 5 mg QHS PO ; Start 09/12/17 at 21:00; Stop 09/12/17 at 21:00; Status DC Non-Formulary Medication 1.25 mg PRN PRN NEB SHORTNESS OF BREATH; Start at 23:45; Status UNV Atorvastatin Calcium (Lipitor) 40 mg HS PO Last administered on 09/12/17at 20:42 ; Start 09/12/17 at 21:00 Cetirizine HCl (ZyrTEC) 10 mg DAILY PO Last administered on 09/13/17at 07:57; Start 09/12/17 at 09:00 Al Hydroxide/Mg Hydroxide (Mylanta Plus Xs) 10 ml PRN AFTMEAL PRN PO DYSPEPSIA ; Start 09/11/17 at 23:45 Miconazole Nitrate (Monistat-Derm) 1 penelope BID TP Last administered on 09/13/17at 07:59; Start 09/12/17 at 09:00; Stop 09/13/17 at 09:03; Status DC Mupirocin (Bactroban) 1 penelope BID TP Last administered on 09/13/17at 07:59; Start 09/12/17 at 09:00 Non-Formulary Medication 2 each BID PO ; Start 09/12/17 at 09:00; Status UNV Fish Oil (Fish Oil) 2,000 mg BID PO Last administered on 09/13/17at 07:56; Start 09/12/17 at 09:00 Artificial Tears (Artificial Tears) 2 drop PRN QID PRN OU DRY EYE; Start at 07:15 Theophylline (Theophylline Extended Release) 200 mg DAILY PO Last administered on 09/13/17at 07:59; Start 09/12/17 at 09:00 Albuterol Sulfate (Ventolin) 2.5 mg PRN Q6HRS PRN NEB SHORTNESS OF BREATH; Start 09/12/17 at 00:30 Albuterol/ Ipratropium (Duoneb) 3 ml STK-MED ONCE .ROUTE ; Start 09/12/17 at 05: 17; Stop 09/12/17 at 05:18; Status DC Insulin Detemir (Levemir) 70 units BID SQ Last administered on 09/13/17at 08:02 ; Start 09/12/17 at 09:00 Melatonin 6 mg HS PO Last administered on 09/12/17at 20:42; Start 09/12/17 at 21 :00 Trazodone HCl (Desyrel) 100 mg QHS PO Last administered on 09/12/17at 20:43; Start 09/12/17 at 21:00 Trazodone HCl (Desyrel) 100 mg PRN QHS PRN PO insomnia ; Start 09/12/17 at 21: 00 Pregabalin (Lyrica) 100 mg TID PO Last administered on 09/13/17at 12:46; Start 09/12/17 at 14:00 Vitamin D (Vitamin D3) 50,000 unit WEEKLY PO ; Start 09/19/17 at 09:00 Promethazine HCl (Phenergan) 12.5 mg PRN Q4HRS PRN PO NAUSEA/VOMITING; Start at 19:00 Risperidone (RisperDAL) 0.5 mg QHS PO Last administered on 09/12/17at 20:42; Start 09/12/17 at 21:00 Nystatin (Nystop) 1 penelope BID TP Last administered on 09/13/17at 09:00; Start at 09:00 Active Scripts Active Reported Venlafaxine Hcl 75 Mg Tablet 75 Mg PO BID Naldo-24 (Theophylline Anhydrous) 200 Mg Cap.er.24h 200 Mg PO DAILY Systane Ultra 0.4-0.3% Eye Drp (Propylene Glycol/Peg 400) 10 Ml Drops 2 Drop OU PRN QID PRN Pulmicort (Budesonide) 0.5 Mg/2 Ml Ampul.neb 0.5 Mg IH BID Pantoprazole Sodium 40 Mg Tablet.dr 20 Mg PO DAILY Novolog Flexpen (Insulin Aspart) 100 Unit/1 Ml Insuln.pen 22 Units SQ TIDAC Hydrocodone-Apap 7.5-325 (Hydrocodone Bit/Acetaminophen) 1 Each Tablet 1 Tab PO QID PRN Hydrocodone-Apap 7.5-325 (Hydrocodone Bit/Acetaminophen) 1 Each Tablet 1 Tab PO PRN Q4HRS PRN NITROGLYCERIN SubLingual (Nitroglycerin) 0.4 Mg Tab.subl 0.4 Mg SL PRN Q5MIN PRN Alum-Mag Hydroxide-Simeth Liq (Mag Hydrox/Al Hydrox/Simeth) 360 Ml Oral.susp 10 Ml PO PRN AFTMEAL PRN Montelukast Sodium Tablet (Montelukast Sodium) 10 Mg Tablet 10 Mg PO DAILY Miralax (Polyethylene Glycol 3350) 17 Gm Powd.pack 17 Gm PO BID Miconazole Nitrate 45 Gm Cream.appl 1 Penelope TP BID Metoprolol Tartrate 25 Mg Tablet 25 Mg PO BID Reglan (Metoclopramide Hcl) 10 Mg Tablet 2.5 Mg PO TID Melatonin 3 Mg Tablet 10 Mg PO HS Lyrica (Pregabalin) 100 Mg Capsule 100 Mg PO TID Lantus Solostar (Insulin Glargine,Hum.rec.anlog) 100 Unit/1 Ml Insuln.pen 70 Units SQ BID Gabapentin 100 Mg Capsule 100 Mg PO TID Furosemide 40 Mg Tablet 40 Mg PO BID Fish Oil 1,000 Mg Softgel ([place]-3/Dha/Epa/Fish Oil) 1 Each Capsule 2 Each PO BID Fish Oil 1,000 Mg Softgel ([place]-3/Dha/Epa/Fish Oil) 1 Each Capsule 2 Each PO BID EXELON 9.5mg/24hr (Rivastigmine) 1 Each Patch.td24 1 Patch TD Duoneb 0.5-3(2.5) Mg/3 Ml (Albuterol/Ipratropium) 3 Ml Ampul.neb 3 Ml NEB QID Dulcolax (Bisacodyl) 10 Mg Supp.rect 10 Mg RC PRN DAILY PRN Doxycycline Hyclate 100 Mg Tablet 100 Mg PO BID Loratadine 10 Mg Tablet 10 Mg PO DAILY Celexa (Citalopram Hydrobromide) 20 Mg Tablet 20 Mg PO DAILY Celebrex (Celecoxib) 200 Mg Capsule 200 Mg PO DAILY Bactroban Nasal (Mupirocin Calcium) 1 Gm Oint...g. 1 Penelope NS BID Atorvastatin Calcium 40 Mg Tablet 40 Mg PO DAILY Aspirin Ec (Aspirin) 81 Mg Tablet.dr 81 Mg PO DAILY Ambien (Zolpidem Tartrate) 5 Mg Tablet 5 Mg PO QHS Aldactone (Spironolactone) 25 Mg Tablet 25 Mg PO DAILY07 Albuterol Sulfate Neb Soln (Albuterol Sulfate) 1.25 Mg/3 Ml Vial.neb 1.25 Mg NEB PRN PRN I have reviewed the current psychotropics carefully including drug interactions. Risk benefit ratio favors no change other than as noted in my dictated progress note. Diagnosis: Problems: (1) Urinary tract infection (2) Medical clearance for psychiatric admission (3) Bipolar affective disorder, mixed (4) Anxiety disorder (5) Major depressive disorder, recurrent episode ROSA GRAMAJO MD Sep 13, 2017 19:45
[2017-09-13] MEDS: MELATONIN 3 MG TABLET PO SCH (19:46)
--- NOTE | 2017-09-14 03:04 | NUR ---
Behavior Intervention Response and Plan: BIRP Note: Behavior: Assumed Care of patient, patient located in Dining Room at shift change. Patient exhibited the following behavior Calm, Withdrawn, Compliant. Brief assessment on rounds of vital signs, medication needs, lab studies, and pain. Treatment plan problems 1-2. Intervention: Patient assessed and the following interventions initiated safety checks 15 Minute Checks Cognitive Assessment , Head to toe Assessment , Medications. Response: After interactions and interventions patient responded in the following manner, Calm , Compliant ,Cooperative. Continue to assess behaviors and condition will continue to monitor throughout the shift as needed. Patient educated on ADL's, and hand hygiene. 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 Continue to assess patient for changes in above assessment. Monitor for medication needs, pain, and safety concerns. Hourly rounding performed to ensure safe environment.
[2017-09-14] MEDS: IPRATRPIUM/ALBUTEROL 0.5/2.5MG 3 ML NEBU. NEB SCH ×4 (05:48→20:06)
[2017-09-14] MEDS: DOXYCYCLINE HYCLATE 100 MG TABLET PO SCH ×2 (06:26→18:27)
[2017-09-14] MEDS: SPIRONOLACTONE 25 MG TABLET PO SCH (06:28)
[2017-09-14 06:39] VITALS: BP 113/60
[2017-09-14] MEDS: CELECOXIB 200 MG CAPSULE PO SCH (08:08)
[2017-09-14] MEDS: POLYETHYLENE GLYCOL 3350 17 GM PACKET. PO SCH ×2 (08:08→21:16)
[2017-09-14] MEDS: VENLAFAXINE 75 MG TABLET. PO SCH ×2 (08:09→21:18)
[2017-09-14] MEDS: OMEGA-3 FATTY ACIDS/FISH OIL 1,000 MG CAPSULE. PO SCH ×2 (08:09→21:16)
[2017-09-14] MEDS: METOPROLOL TART IMMED RELEASE 25 MG TABLET PO SCH ×2 (08:09→21:00)
[2017-09-14] MEDS: GABAPENTIN 100 MG CAPSULE. PO SCH ×3 (08:09→21:16)
[2017-09-14] MEDS: ASPIRIN ENTERIC COATED 81 MG TABLET.DR. PO SCH (08:09)
[2017-09-14] MEDS: PANTOPRAZOLE 40 MG TABLET. PO SCH (08:09)
[2017-09-14] MEDS: CETIRIZINE HCL 10 MG TABLET PO SCH (08:10)
[2017-09-14] MEDS: PREGABALIN 50 MG CAPSULE PO SCH ×3 (08:10→21:17)
[2017-09-14] MEDS: CITALOPRAM 20 MG TABLET. PO SCH (08:10)
[2017-09-14] MEDS: FUROSEMIDE 40 MG TABLET PO SCH ×2 (08:10→13:10)
[2017-09-14] MEDS: RIVASTIGMINE 9.5MG PATCH. TD SCH (08:11)
[2017-09-14] MEDS: INSULIN DETEMIR 300 UNITS/3 ML INSULN.PEN. SQ SCH ×2 (08:12→21:22)
[2017-09-14] MEDS: INSULIN ASPART 300 UNITS/3 ML INSULN.PEN SQ SCH ×3 (08:12→18:34)
[2017-09-14] MEDS: THEOPHYLLINE ANHYDROUS 400 MG TABLET.ER. PO SCH (08:14)
[2017-09-14] MEDS: MUPIROCIN 2% TOPICAL OINTMENT 22GM TUBE. TP SCH ×2 (08:14→21:24)
[2017-09-14] MEDS: NYSTATIN TOPICAL POWDER 15GM BOTTLE. TP SCH ×2 (08:14→21:24)
[2017-09-14] MEDS: LACTOBACILLUS RHAMNOSUS GG 1 CAPSULE. PO SCH ×2 (09:00→21:16)
[2017-09-14] MEDS: BUDESONIDE 0.5 MG/2 ML NEBU IH SCH ×2 (10:02→20:06)
--- NOTE | 2017-09-14 10:39 | NUR ---
Behavior Intervention Response and Plan: BIRP Note: Behavior: Assumed Care of patient, patient located in Dining Room at shift change. Patient exhibited the following behavior Calm, Withdrawn, Compliant. Brief assessment on rounds of vital signs, medication needs, lab studies, and pain. Treatment plan problems . Intervention: Patient assessed and the following interventions initiated safety checks 15 Minute Checks Cognitive Assessment , Head to toe Assessment , Medications. Response: After interactions and interventions patient responded in the following manner, Calm , Compliant ,Cooperative. Continue to assess behaviors and condition will continue to monitor throughout the shift as needed. Patient educated on ADL's, and hand hygiene. 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 Continue to assess patient for changes in above assessment. Monitor for medication needs, pain, and safety concerns. Hourly rounding performed to ensure safe environment.
--- NOTE | 2017-09-14 17:16 | NUR ---
pt up with assist to meals. pt needs help with o2. Has been compliant with meds and cares. has voiced no delusions thus far today.
[2017-09-14 17:57] VITALS: BP 99/57
[2017-09-14] MEDS: ATORVASTATIN CALCIUM 20 MG TABLET PO SCH (21:16)
[2017-09-14] MEDS: traZODone 100 MG TABLET. PO SCH (21:16)
[2017-09-14] MEDS: risperiDONE 0.5 MG TABLET. PO SCH (21:16)
[2017-09-14] MEDS: MELATONIN 3 MG TABLET PO SCH (21:18)
[2017-09-14] MEDS: MONTELUKAST 10 MG TABLET. PO SCH (21:18)
--- NOTE | 2017-09-14 22:23 | PDOC ---
Exam Note: Gagan Note: Please also refer to the separate dictated note~for this date of service dictated separately.~Patient seen individually. Discussed the patient with Nursing staff reviewed the chart.~Reviewed interim history and current functioning. Reviewed vital signs,~Labs/ Radiology~and current medications noted below. Continue current treatment with the changes noted in the dictated addendum note Assessment: Vital Signs: Vital Signs Date Time Temp Pulse Resp B/P (MAP) Pulse Ox O2 Delivery O2 Flow Rate FiO2 09/14/17 21:00 81 99/57 09/14/17 20:10 Nasal Cannula 3.0 09/14/17 20:05 97 09/14/17 17:57 98.9 18 I&O Intake and Output 09/14/17 07:00 Intake Total 720 ml Balance 720 ml Intake Oral 720 ml Labs: Laboratory Tests Test 09/14/17 07:22 09/14/17 11:42 09/14/17 17:00 09/14/17 19:27 Glucose (Fingerstick) 131 mg/dL (70-99) H 165 mg/dL (70-99) H 113 mg/dL (70-99) H 133 mg/dL (70-99) H Current Medications: Meds: Current Medications Ciprofloxacin (Cipro) 500 mg 1X ONCE PO Last administered on 09/11/17at 21:31; Start 09/11/17 at 21:15; Stop 09/11/17 at 21:16; Status DC Acetaminophen (Tylenol) 650 mg PRN Q6HRS PRN PO PAIN / TEMP; Start 09/11/17 at 23:30 Multi-Ingredient Ointment (Analgesic [place]) 1 penelope PRN QID PRN TP MUSCLE PAIN; Start 09/11/17 at 23:30 Al Hydroxide/Mg Hydroxide (Mylanta Plus Xs) 15 ml PRN AFTMEALHC PRN PO DYSPEPSIA Last administered on 09/12/17at 09:42; Start 09/11/17 at 23:30 Magnesium Hydroxide (Milk Of Magnesia) 2,400 mg PRN QHS PRN PO CONSTIPATION; Start 09/11/17 at 23:30 Citalopram Hydrobromide (CeleXA) 20 mg DAILY PO Last administered on 09/14/17at 08:10; Start 09/12/17 at 09:00 Rivastigmine (Exelon) 1 patch DAILY TD Last administered on 09/14/17at 08:11; Start 09/12/17 at 09:00 Venlafaxine HCl (Effexor) 75 mg BID PO Last administered on 09/14/17at 21:18; Start 09/12/17 at 09:00 Melatonin 10 mg HS PO ; Start 09/12/17 at 21:00; Stop 09/12/17 at 21:00; Status DC Aspirin (Aspirin Enteric Coated) 81 mg DAILY PO Last administered on 09/14/17at 08:09; Start 09/12/17 at 09:00 Bisacodyl (Dulcolax Supp) 10 mg PRN DAILY PRN RC CONSTIPATION; Start 09/11/17 at 23:45 Budesonide (Pulmicort) 0.5 mg BID IH Last administered on 09/14/17at 20:06; Start 09/12/17 at 09:00 Celecoxib (CeleBREX) 200 mg DAILY PO Last administered on 09/14/17at 08:08; Start 09/12/17 at 09:00 Doxycycline Hyclate (Vibra-Tab) 100 mg BID66 PO Last administered on 09/14/17at 18:27; Start 09/12/17 at 06:00 Furosemide (Lasix) 40 mg BID92 PO Last administered on 09/14/17at 13:10; Start 09/12/17 at 09:00 Gabapentin (Neurontin) 100 mg TID PO Last administered on 09/14/17at 21:16; Start 09/12/17 at 09:00 Acetaminophen/ Hydrocodone Bitart (Lortab 7.5/325) 1 tab PRN Q4HRS PRN PO PAIN ; Start 09/11/17 at 23:45 Acetaminophen/ Hydrocodone Bitart (Lortab 7.5/325) 1 tab PRN QID PRN PO PAIN; Start 09/11/17 at 23:45 Insulin Aspart (NovoLOG) 22 units TIDAC SQ Last administered on 09/14/17at 18:34 ; Start 09/12/17 at 07:30 Insulin Glargine (Lantus) 70 units BID SQ ; Start 09/12/17 at 09:00; Stop at 09:00; Status DC Albuterol/ Ipratropium (Duoneb) 3 ml RTQID NEB Last administered on 09/14/17at 20:06; Start 09/12/17 at 08:00 Metoclopramide HCl (Reglan) 2.5 mg TID PO Last administered on 09/12/17at 15:03 ; Start 09/12/17 at 09:00; Stop 09/12/17 at 19:21; Status DC Metoprolol Tartrate (Lopressor) 25 mg BID PO Last administered on 09/14/17at 08: 09; Start 09/12/17 at 09:00 Montelukast Sodium (Singulair) 10 mg HS PO Last administered on 09/14/17at 21:18 ; Start 09/12/17 at 21:00 Nitroglycerin (Nitrostat) 0.4 mg PRN Q5MIN PRN SL CHEST PAIN; Start 09/11/17 at 23:45 Pantoprazole Sodium (Protonix) 20 mg DAILYAC PO Last administered on 09/14/17at 08:09; Start 09/12/17 at 07:30 Polyethylene Glycol (miraLAX) 17 gm BID PO Last administered on 09/14/17at 21:16 ; Start 09/12/17 at 09:00 Pregabalin (Lyrica) 100 mg TID PO Last administered on 09/12/17at 08:35; Start 09/12/17 at 09:00; Stop 09/12/17 at 15:02; Status DC Spironolactone (Aldactone) 25 mg DAILY07 PO Last administered on 09/14/17at 06: 28; Start 09/12/17 at 07:00 Zolpidem Tartrate (Ambien) 5 mg QHS PO ; Start 09/12/17 at 21:00; Stop 09/12/17 at 21:00; Status DC Non-Formulary Medication 1.25 mg PRN PRN NEB SHORTNESS OF BREATH; Start at 23:45; Status UNV Atorvastatin Calcium (Lipitor) 40 mg HS PO Last administered on 09/14/17at 21:16 ; Start 09/12/17 at 21:00 Cetirizine HCl (ZyrTEC) 10 mg DAILY PO Last administered on 09/14/17at 08:10; Start 09/12/17 at 09:00 Al Hydroxide/Mg Hydroxide (Mylanta Plus Xs) 10 ml PRN AFTMEAL PRN PO DYSPEPSIA ; Start 09/11/17 at 23:45 Miconazole Nitrate (Monistat-Derm) 1 penelope BID TP Last administered on 09/13/17at 07:59; Start 09/12/17 at 09:00; Stop 09/13/17 at 09:03; Status DC Mupirocin (Bactroban) 1 penelope BID TP Last administered on 09/14/17at 21:24; Start 09/12/17 at 09:00 Non-Formulary Medication 2 each BID PO ; Start 09/12/17 at 09:00; Status UNV Fish Oil (Fish Oil) 2,000 mg BID PO Last administered on 09/14/17at 21:16; Start 09/12/17 at 09:00 Artificial Tears (Artificial Tears) 2 drop PRN QID PRN OU DRY EYE; Start at 07:15 Theophylline (Theophylline Extended Release) 200 mg DAILY PO Last administered on 09/14/17at 08:14; Start 09/12/17 at 09:00 Albuterol Sulfate (Ventolin) 2.5 mg PRN Q6HRS PRN NEB SHORTNESS OF BREATH; Start 09/12/17 at 00:30 Albuterol/ Ipratropium (Duoneb) 3 ml STK-MED ONCE .ROUTE ; Start 09/12/17 at 05: 17; Stop 09/12/17 at 05:18; Status DC Insulin Detemir (Levemir) 70 units BID SQ Last administered on 09/14/17at 21:22 ; Start 09/12/17 at 09:00 Melatonin 6 mg HS PO Last administered on 09/14/17at 21:18; Start 09/12/17 at 21 :00 Trazodone HCl (Desyrel) 100 mg QHS PO Last administered on 09/14/17at 21:16; Start 09/12/17 at 21:00 Trazodone HCl (Desyrel) 100 mg PRN QHS PRN PO insomnia ; Start 09/12/17 at 21: 00 Pregabalin (Lyrica) 100 mg TID PO Last administered on 09/14/17at 21:17; Start 09/12/17 at 14:00 Vitamin D (Vitamin D3) 50,000 unit WEEKLY PO ; Start 09/19/17 at 09:00 Promethazine HCl (Phenergan) 12.5 mg PRN Q4HRS PRN PO NAUSEA/VOMITING; Start at 19:00 Risperidone (RisperDAL) 0.5 mg QHS PO Last administered on 09/14/17at 21:16; Start 09/12/17 at 21:00 Nystatin (Nystop) 1 penelope BID TP Last administered on 09/14/17at 21:24; Start at 09:00 Lactobacillus Rhamnosus (Culturelle) 1 cap BID PO Last administered on at 21:16; Start 09/14/17 at 09:00 Divalproex Sodium (Depakote Sprinkles) 250 mg HS PO ; Start 09/15/17 at 21:00 Active Scripts Active Reported Venlafaxine Hcl 75 Mg Tablet 75 Mg PO BID Naldo-24 (Theophylline Anhydrous) 200 Mg Cap.er.24h 200 Mg PO DAILY Systane Ultra 0.4-0.3% Eye Drp (Propylene Glycol/Peg 400) 10 Ml Drops 2 Drop OU PRN QID PRN Pulmicort (Budesonide) 0.5 Mg/2 Ml Ampul.neb 0.5 Mg IH BID Pantoprazole Sodium 40 Mg Tablet.dr 20 Mg PO DAILY Novolog Flexpen (Insulin Aspart) 100 Unit/1 Ml Insuln.pen 22 Units SQ TIDAC Hydrocodone-Apap 7.5-325 (Hydrocodone Bit/Acetaminophen) 1 Each Tablet 1 Tab PO QID PRN Hydrocodone-Apap 7.5-325 (Hydrocodone Bit/Acetaminophen) 1 Each Tablet 1 Tab PO PRN Q4HRS PRN NITROGLYCERIN SubLingual (Nitroglycerin) 0.4 Mg Tab.subl 0.4 Mg SL PRN Q5MIN PRN Alum-Mag Hydroxide-Simeth Liq (Mag Hydrox/Al Hydrox/Simeth) 360 Ml Oral.susp 10 Ml PO PRN AFTMEAL PRN Montelukast Sodium Tablet (Montelukast Sodium) 10 Mg Tablet 10 Mg PO DAILY Miralax (Polyethylene Glycol 3350) 17 Gm Powd.pack 17 Gm PO BID Miconazole Nitrate 45 Gm Cream.appl 1 Penelope TP BID Metoprolol Tartrate 25 Mg Tablet 25 Mg PO BID Reglan (Metoclopramide Hcl) 10 Mg Tablet 2.5 Mg PO TID Melatonin 3 Mg Tablet 10 Mg PO HS Lyrica (Pregabalin) 100 Mg Capsule 100 Mg PO TID Lantus Solostar (Insulin Glargine,Hum.rec.anlog) 100 Unit/1 Ml Insuln.pen 70 Units SQ BID Gabapentin 100 Mg Capsule 100 Mg PO TID Furosemide 40 Mg Tablet 40 Mg PO BID Fish Oil 1,000 Mg Softgel ([place]-3/Dha/Epa/Fish Oil) 1 Each Capsule 2 Each PO BID Fish Oil 1,000 Mg Softgel ([place]-3/Dha/Epa/Fish Oil) 1 Each Capsule 2 Each PO BID EXELON 9.5mg/24hr (Rivastigmine) 1 Each Patch.td24 1 Patch TD Duoneb 0.5-3(2.5) Mg/3 Ml (Albuterol/Ipratropium) 3 Ml Ampul.neb 3 Ml NEB QID Dulcolax (Bisacodyl) 10 Mg Supp.rect 10 Mg RC PRN DAILY PRN Doxycycline Hyclate 100 Mg Tablet 100 Mg PO BID Loratadine 10 Mg Tablet 10 Mg PO DAILY Celexa (Citalopram Hydrobromide) 20 Mg Tablet 20 Mg PO DAILY Celebrex (Celecoxib) 200 Mg Capsule 200 Mg PO DAILY Bactroban Nasal (Mupirocin Calcium) 1 Gm Oint...g. 1 Penelope NS BID Atorvastatin Calcium 40 Mg Tablet 40 Mg PO DAILY Aspirin Ec (Aspirin) 81 Mg Tablet.dr 81 Mg PO DAILY Ambien (Zolpidem Tartrate) 5 Mg Tablet 5 Mg PO QHS Aldactone (Spironolactone) 25 Mg Tablet 25 Mg PO DAILY07 Albuterol Sulfate Neb Soln (Albuterol Sulfate) 1.25 Mg/3 Ml Vial.neb 1.25 Mg NEB PRN PRN I have reviewed the current psychotropics carefully including drug interactions. Risk benefit ratio favors no change other than as noted in my dictated progress note. Diagnosis: Problems: (1) Urinary tract infection (2) Renal insufficiency (3) Medical clearance for psychiatric admission (4) Bipolar affective disorder, mixed (5) Anxiety disorder (6) Major depressive disorder, recurrent episode ROSA GRAMAJO MD Sep 14, 2017 22:22
--- NOTE | 2017-09-15 01:29 | NUR ---
Behavior Intervention Response and Plan: BIRP Note: Behavior: Assumed Care of patient, patient located in Day Room at shift change. Patient exhibited the following behavior Interactive, Calm, Able to Focus on Task. Brief assessment on rounds of vital signs, medication needs, lab studies, and pain. Treatment plan problems :1-2 Intervention: Patient assessed and the following interventions initiated safety checks 15 Minute Checks Cognitive Assessment , Head to toe Assessment , Medications. Response: After interactions and interventions patient responded in the following manner, Cooperative , Social ,Compliant. Continue to assess behaviors and condition will continue to monitor throughout the shift as needed. Patient educated on ADL's, and hand hygiene. 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 Continue to assess patient for changes in above assessment. Monitor for medication needs, pain, and safety concerns. Hourly rounding performed to ensure safe environment.
[2017-09-15] MEDS: SPIRONOLACTONE 25 MG TABLET PO SCH (06:06)
[2017-09-15] MEDS: DOXYCYCLINE HYCLATE 100 MG TABLET PO SCH ×2 (06:06→18:37)
[2017-09-15 06:27] VITALS: BP 146/71
[2017-09-15] MEDS: RIVASTIGMINE 9.5MG PATCH. TD SCH (07:49)
[2017-09-15] MEDS: METOPROLOL TART IMMED RELEASE 25 MG TABLET PO SCH ×2 (07:50→21:00)
[2017-09-15] MEDS: CETIRIZINE HCL 10 MG TABLET PO SCH (07:50)
[2017-09-15] MEDS: POLYETHYLENE GLYCOL 3350 17 GM PACKET. PO SCH ×2 (07:50→20:27)
[2017-09-15] MEDS: OMEGA-3 FATTY ACIDS/FISH OIL 1,000 MG CAPSULE. PO SCH ×2 (07:50→20:25)
[2017-09-15] MEDS: CELECOXIB 200 MG CAPSULE PO SCH (07:50)
[2017-09-15] MEDS: LACTOBACILLUS RHAMNOSUS GG 1 CAPSULE. PO SCH ×2 (07:51→20:26)
[2017-09-15] MEDS: GABAPENTIN 100 MG CAPSULE. PO SCH ×3 (07:51→20:27)
[2017-09-15] MEDS: VENLAFAXINE 75 MG TABLET. PO SCH ×2 (07:51→20:27)
[2017-09-15] MEDS: ASPIRIN ENTERIC COATED 81 MG TABLET.DR. PO SCH (07:51)
[2017-09-15] MEDS: CITALOPRAM 20 MG TABLET. PO SCH (07:51)
[2017-09-15] MEDS: PANTOPRAZOLE 40 MG TABLET. PO SCH (07:51)
[2017-09-15] MEDS: PREGABALIN 50 MG CAPSULE PO SCH ×3 (07:52→20:26)
[2017-09-15] MEDS: FUROSEMIDE 40 MG TABLET PO SCH ×2 (07:52→13:31)
[2017-09-15] MEDS: THEOPHYLLINE ANHYDROUS 400 MG TABLET.ER. PO SCH (07:54)
[2017-09-15] MEDS: INSULIN DETEMIR 300 UNITS/3 ML INSULN.PEN. SQ SCH ×2 (07:56→20:29)
[2017-09-15] MEDS: INSULIN ASPART 300 UNITS/3 ML INSULN.PEN SQ SCH ×3 (07:57→18:39)
[2017-09-15] MEDS: NYSTATIN TOPICAL POWDER 15GM BOTTLE. TP SCH ×2 (07:58→20:32)
[2017-09-15] MEDS: IPRATRPIUM/ALBUTEROL 0.5/2.5MG 3 ML NEBU. NEB SCH ×4 (07:59→21:41)
[2017-09-15] MEDS: MUPIROCIN 2% TOPICAL OINTMENT 22GM TUBE. TP SCH ×2 (07:59→20:32)
--- NOTE | 2017-09-15 09:57 | NUR ---
Behavior Intervention Response and Plan: BIRP Note: Behavior: Assumed Care of patient, patient located in Dining Room at shift change. Patient exhibited the following behavior Calm, Withdrawn, Compliant. Brief assessment on rounds of vital signs, medication needs, lab studies, and pain. Treatment plan problems . Intervention: Patient assessed and the following interventions initiated safety checks 15 Minute Checks Cognitive Assessment , Head to toe Assessment , Medications. Response: After interactions and interventions patient responded in the following manner, Calm , Compliant ,Cooperative. Continue to assess behaviors and condition will continue to monitor throughout the shift as needed. Patient educated on ADL's, and hand hygiene. 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 Continue to assess patient for changes in above assessment. Monitor for medication needs, pain, and safety concerns. Hourly rounding performed to ensure safe environment.
[2017-09-15 11:58] LABS: BASO # 0.1 x10^3/uL (0.0-0.2); BASO % 1 % (0-3); EOS # 0.4 x10^3/uL (0.0-0.7); EOS % 2 % (0-3); HEMATOCRIT 37.8 % (36.0-47.0); HEMOGLOBIN 12.1 g/dL (12.0-15.5); LYMPH # 1.7 x10^3/uL (1.0-4.8); LYMPH % 11 % (24-48); MEAN CORPUSCULAR HEMOGLOBIN 25 pg (25-35); MEAN CORPUSCULAR HGB CONC 32 g/dL (31-37); MEAN CORPUSCULAR VOLUME 79 fL (79-100); MONO # 1.1 x10^3/uL (0.0-1.1); MONO % 7 % (0-9); NEUT # 12.1 x10^3uL (1.8-7.7); NEUT % 79 % (31-73); PLATELET COUNT 218 x10^3/uL (140-400); RED BLOOD COUNT 4.78 x10^6/uL (3.50-5.40); RED CELL DISTRIBUTION WIDTH 15.6 % (11.5-14.5); WHITE BLOOD COUNT 15.4 x10^3/uL (4.0-11.0)
[2017-09-15 12:14] LABS: ALBUMIN 3.2 g/dL (3.4-5.0); ALBUMIN/GLOBULIN RATIO 0.7 (1.0-1.7); CALCIUM 9.5 mg/dL (8.5-10.1); CREATININE 1.1 mg/dL (0.6-1.0); POTASSIUM 3.9 mmol/L (3.5-5.1); TOTAL BILIRUBIN 0.5 mg/dL (0.2-1.0); TOTAL PROTEIN 7.5 g/dL (6.4-8.2)
[2017-09-15] MEDS: BUDESONIDE 0.5 MG/2 ML NEBU IH SCH ×2 (12:47→21:41)
[2017-09-15 12:59] LABS: % BANDS 2 % (0-9); % BASOS 0 % (0-3); % EOS 3 % (0-5); % LYMPHS 11 % (24-48); % MONOS 2 % (0-10); % SEGS 80 % (35-66); PLATELET CLUMP PRESENT; PLT ESTIMATE ADEQUATE (ADEQUATE)
[2017-09-15 13:00] LABS: TOXIC GRANULATION SLIGHT
[2017-09-15 15:57] VITALS: BP 112/58
--- NOTE | 2017-09-15 16:18 | NUR ---
pt up in [place] for meals. out to day room. in pleasant spirits. WBC increased over last few days. pt SOB with exertion. states she has some nasal congestion and runny nose. request allergy med. Order for CXR. done. tolerated well. has voiced no delusions. in pleasant spirits and thankful to staff.
--- NOTE | 2017-09-15 16:44 | RAD ---
EXAM: Chest one view. HISTORY: Leukocytosis. COMPARISON: None. FINDINGS: A frontal view of the chest is obtained. There are no confluent infiltrates. There is no pneumothorax or pleural effusion. The heart is not enlarged. There are atherosclerotic calcifications of the aorta. IMPRESSION: 1. No confluent infiltrates.
--- NOTE | 2017-09-15 19:59 | PDOC ---
Exam Note: Gagan Note: Please also refer to the separate dictated note~for this date of service dictated separately.~Patient seen individually. Discussed the patient with Nursing staff reviewed the chart.~Reviewed interim history and current functioning. Reviewed vital signs,~Labs/ Radiology~and current medications noted below. Continue current treatment with the changes noted in the dictated addendum note Assessment: Vital Signs: Vital Signs Date Time Temp Pulse Resp B/P (MAP) Pulse Ox O2 Delivery O2 Flow Rate FiO2 09/15/17 17:08 96 Nasal Cannula 3.0 09/15/17 15:57 98.1 85 18 112/58 (76) I&O Intake and Output 09/15/17 07:00 Intake Total 1140 ml Balance 1140 ml Intake Oral 1140 ml Labs: Laboratory Tests Test 09/15/17 07:48 09/15/17 11:42 09/15/17 11:45 09/15/17 16:46 Glucose (Fingerstick) 157 mg/dL (70-99) H 211 mg/dL (70-99) H 111 mg/dL (70-99) H White Blood Count 15.4 x10^3/uL (4.0-11.0) H Red Blood Count 4.78 x10^6/uL (3.50-5.40) Hemoglobin 12.1 g/dL (12.0-15.5) Hematocrit 37.8 % (36.0-47.0) Mean Corpuscular Volume 79 fL (79-100) Mean Corpuscular Hemoglobin 25 pg (25-35) Mean Corpuscular Hemoglobin Concent 32 g/dL (31-37) Red Cell Distribution Width 15.6 % (11.5-14.5) H Platelet Count 218 x10^3/uL (140-400) Neutrophils (%) (Auto) 79 % (31-73) H Lymphocytes (%) (Auto) 11 % (24-48) L Monocytes (%) (Auto) 7 % (0-9) Eosinophils (%) (Auto) 2 % (0-3) Basophils (%) (Auto) 1 % (0-3) Neutrophils # (Auto) 12.1 x10^3uL (1.8-7.7) H Lymphocytes # (Auto) 1.7 x10^3/uL (1.0-4.8) Monocytes # (Auto) 1.1 x10^3/uL (0.0-1.1) Eosinophils # (Auto) 0.4 x10^3/uL (0.0-0.7) Basophils # (Auto) 0.1 x10^3/uL (0.0-0.2) Segmented Neutrophils % 80 % (35-66) H Band Neutrophils % 2 % (0-9) Lymphocytes % 11 % (24-48) L Monocytes % 2 % (0-10) Eosinophils % 3 % (0-5) Basophils % 0 % (0-3) Toxic Granulation Slight Platelet Estimate Adequate (ADEQUATE) Platelet Clumps, EDTA Present Large Platelets Occ Sodium Level 140 mmol/L (136-145) Potassium Level 3.9 mmol/L (3.5-5.1) Chloride Level 103 mmol/L (98-107) Carbon Dioxide Level 30 mmol/L (21-32) Anion Gap 7 (6-14) Blood Urea Nitrogen 20 mg/dL (7-20) Creatinine 1.1 mg/dL (0.6-1.0) H Estimated GFR (Cockcroft-Gault) 50.0 BUN/Creatinine Ratio 18 (6-20) Glucose Level 237 mg/dL (70-99) H Calcium Level 9.5 mg/dL (8.5-10.1) Total Bilirubin 0.5 mg/dL (0.2-1.0) Aspartate Amino Transferase (AST) 13 U/L (15-37) L Alanine Aminotransferase (ALT) 28 U/L (14-59) Alkaline Phosphatase 95 U/L (46-116) Total Protein 7.5 g/dL (6.4-8.2) Albumin 3.2 g/dL (3.4-5.0) L Albumin/Globulin Ratio 0.7 (1.0-1.7) L Test 09/15/17 19:13 Glucose (Fingerstick) 152 mg/dL (70-99) H Current Medications: Meds: Current Medications Ciprofloxacin (Cipro) 500 mg 1X ONCE PO Last administered on 09/11/17at 21:31; Start 09/11/17 at 21:15; Stop 09/11/17 at 21:16; Status DC Acetaminophen (Tylenol) 650 mg PRN Q6HRS PRN PO PAIN / TEMP; Start 09/11/17 at 23:30 Multi-Ingredient Ointment (Analgesic [place]) 1 penelope PRN QID PRN TP MUSCLE PAIN; Start 09/11/17 at 23:30 Al Hydroxide/Mg Hydroxide (Mylanta Plus Xs) 15 ml PRN AFTMEALHC PRN PO DYSPEPSIA Last administered on 09/12/17at 09:42; Start 09/11/17 at 23:30 Magnesium Hydroxide (Milk Of Magnesia) 2,400 mg PRN QHS PRN PO CONSTIPATION; Start 09/11/17 at 23:30 Citalopram Hydrobromide (CeleXA) 20 mg DAILY PO Last administered on 09/15/17 07:51; Start 09/12/17 at 09:00; Stop 09/15/17 at 12:42; Status DC Rivastigmine (Exelon) 1 patch DAILY TD Last administered on 09/15/17at 07:49; Start 09/12/17 at 09:00 Venlafaxine HCl (Effexor) 75 mg BID PO Last administered on 09/15/17 07:51; Start 09/12/17 at 09:00 Melatonin 10 mg HS PO ; Start 09/12/17 at 21:00; Stop 09/12/17 at 21:00; Status DC Aspirin (Aspirin Enteric Coated) 81 mg DAILY PO Last administered on 09/15/17at 07:51; Start 09/12/17 at 09:00 Bisacodyl (Dulcolax Supp) 10 mg PRN DAILY PRN RC CONSTIPATION; Start 09/11/17 at 23:45 Budesonide (Pulmicort) 0.5 mg BID IH Last administered on 09/15/17at 12:47; Start 09/12/17 at 09:00 Celecoxib (CeleBREX) 200 mg DAILY PO Last administered on 09/15/17at 07:50; Start 09/12/17 at 09:00 Doxycycline Hyclate (Vibra-Tab) 100 mg BID66 PO Last administered on 09/15/17 18:37; Start 09/12/17 at 06:00; Stop 09/17/17 at 05:59 Furosemide (Lasix) 40 mg BID92 PO Last administered on 09/15/17at 13:31; Start 09/12/17 at 09:00 Gabapentin (Neurontin) 100 mg TID PO Last administered on 09/15/17at 13:31; Start 09/12/17 at 09:00 Acetaminophen/ Hydrocodone Bitart (Lortab 7.5/325) 1 tab PRN Q4HRS PRN PO PAIN ; Start 09/11/17 at 23:45 Acetaminophen/ Hydrocodone Bitart (Lortab 7.5/325) 1 tab PRN QID PRN PO PAIN; Start 09/11/17 at 23:45; Stop 09/15/17 at 17:56; Status DC Insulin Aspart (NovoLOG) 22 units TIDAC SQ Last administered on 09/15/17at 18:39 ; Start 09/12/17 at 07:30 Insulin Glargine (Lantus) 70 units BID SQ ; Start 09/12/17 at 09:00; Stop at 09:00; Status DC Albuterol/ Ipratropium (Duoneb) 3 ml RTQID NEB Last administered on 09/15/17at 17:08; Start 09/12/17 at 08:00 Metoclopramide HCl (Reglan) 2.5 mg TID PO Last administered on 09/12/17at 15:03 ; Start 09/12/17 at 09:00; Stop 09/12/17 at 19:21; Status DC Metoprolol Tartrate (Lopressor) 25 mg BID PO Last administered on 09/15/17at 07: 50; Start 09/12/17 at 09:00 Montelukast Sodium (Singulair) 10 mg HS PO Last administered on 09/14/17at 21:18 ; Start 09/12/17 at 21:00 Nitroglycerin (Nitrostat) 0.4 mg PRN Q5MIN PRN SL CHEST PAIN; Start 09/11/17 at 23:45 Pantoprazole Sodium (Protonix) 20 mg DAILYAC PO Last administered on 09/15/17at 07:51; Start 09/12/17 at 07:30 Polyethylene Glycol (miraLAX) 17 gm BID PO Last administered on 09/15/17at 07:50 ; Start 09/12/17 at 09:00 Pregabalin (Lyrica) 100 mg TID PO Last administered on 09/12/17at 08:35; Start 09/12/17 at 09:00; Stop 09/12/17 at 15:02; Status DC Spironolactone (Aldactone) 25 mg DAILY07 PO Last administered on 09/15/17at 06: 06; Start 09/12/17 at 07:00 Zolpidem Tartrate (Ambien) 5 mg QHS PO ; Start 09/12/17 at 21:00; Stop 09/12/17 at 21:00; Status DC Non-Formulary Medication 1.25 mg PRN PRN NEB SHORTNESS OF BREATH; Start at 23:45; Status UNV Atorvastatin Calcium (Lipitor) 40 mg HS PO Last administered on 09/14/17at 21:16 ; Start 09/12/17 at 21:00 Cetirizine HCl (ZyrTEC) 10 mg DAILY PO Last administered on 09/15/17at 07:50; Start 09/12/17 at 09:00 Al Hydroxide/Mg Hydroxide (Mylanta Plus Xs) 10 ml PRN AFTMEAL PRN PO DYSPEPSIA ; Start 09/11/17 at 23:45 Miconazole Nitrate (Monistat-Derm) 1 penelope BID TP Last administered on 09/13/17at 07:59; Start 09/12/17 at 09:00; Stop 09/13/17 at 09:03; Status DC Mupirocin (Bactroban) 1 penelope BID TP Last administered on 09/15/17at 07:59; Start 09/12/17 at 09:00 Non-Formulary Medication 2 each BID PO ; Start 09/12/17 at 09:00; Status UNV Fish Oil (Fish Oil) 2,000 mg BID PO Last administered on 09/15/17at 07:50; Start 09/12/17 at 09:00 Artificial Tears (Artificial Tears) 2 drop PRN QID PRN OU DRY EYE; Start at 07:15 Theophylline (Theophylline Extended Release) 200 mg DAILY PO Last administered on 09/15/17at 07:54; Start 09/12/17 at 09:00 Albuterol Sulfate (Ventolin) 2.5 mg PRN Q6HRS PRN NEB SHORTNESS OF BREATH; Start 09/12/17 at 00:30 Albuterol/ Ipratropium (Duoneb) 3 ml STK-MED ONCE .ROUTE ; Start 09/12/17 at 05: 17; Stop 09/12/17 at 05:18; Status DC Insulin Detemir (Levemir) 70 units BID SQ Last administered on 09/15/17at 07:56 ; Start 09/12/17 at 09:00 Melatonin 6 mg HS PO Last administered on 09/14/17at 21:18; Start 09/12/17 at 21 :00 Trazodone HCl (Desyrel) 100 mg QHS PO Last administered on 09/14/17at 21:16; Start 09/12/17 at 21:00 Trazodone HCl (Desyrel) 100 mg PRN QHS PRN PO insomnia ; Start 09/12/17 at 21: 00 Pregabalin (Lyrica) 100 mg TID PO Last administered on 09/15/17at 13:31; Start 09/12/17 at 14:00 Vitamin D (Vitamin D3) 50,000 unit WEEKLY PO ; Start 09/19/17 at 09:00 Promethazine HCl (Phenergan) 12.5 mg PRN Q4HRS PRN PO NAUSEA/VOMITING; Start at 19:00 Risperidone (RisperDAL) 0.5 mg QHS PO Last administered on 09/14/17at 21:16; Start 09/12/17 at 21:00 Nystatin (Nystop) 1 penelope BID TP Last administered on 09/15/17at 07:58; Start at 09:00 Lactobacillus Rhamnosus (Culturelle) 1 cap BID PO Last administered on at 07:51; Start 09/14/17 at 09:00 Divalproex Sodium (Depakote Sprinkles) 250 mg HS PO ; Start 09/15/17 at 21:00 Cetirizine HCl (ZyrTEC) 10 mg DAILY PO ; Start 09/16/17 at 09:00; Status Cancel Active Scripts Active Reported Venlafaxine Hcl 75 Mg Tablet 75 Mg PO BID Naldo-24 (Theophylline Anhydrous) 200 Mg Cap.er.24h 200 Mg PO DAILY Systane Ultra 0.4-0.3% Eye Drp (Propylene Glycol/Peg 400) 10 Ml Drops 2 Drop OU PRN QID PRN Pulmicort (Budesonide) 0.5 Mg/2 Ml Ampul.neb 0.5 Mg IH BID Pantoprazole Sodium 40 Mg Tablet.dr 20 Mg PO DAILY Novolog Flexpen (Insulin Aspart) 100 Unit/1 Ml Insuln.pen 22 Units SQ TIDAC Hydrocodone-Apap 7.5-325 (Hydrocodone Bit/Acetaminophen) 1 Each Tablet 1 Tab PO QID PRN Hydrocodone-Apap 7.5-325 (Hydrocodone Bit/Acetaminophen) 1 Each Tablet 1 Tab PO PRN Q4HRS PRN NITROGLYCERIN SubLingual (Nitroglycerin) 0.4 Mg Tab.subl 0.4 Mg SL PRN Q5MIN PRN Alum-Mag Hydroxide-Simeth Liq (Mag Hydrox/Al Hydrox/Simeth) 360 Ml Oral.susp 10 Ml PO PRN AFTMEAL PRN Montelukast Sodium Tablet (Montelukast Sodium) 10 Mg Tablet 10 Mg PO DAILY Miralax (Polyethylene Glycol 3350) 17 Gm Powd.pack 17 Gm PO BID Miconazole Nitrate 45 Gm Cream.appl 1 Penelope TP BID Metoprolol Tartrate 25 Mg Tablet 25 Mg PO BID Reglan (Metoclopramide Hcl) 10 Mg Tablet 2.5 Mg PO TID Melatonin 3 Mg Tablet 10 Mg PO HS Lyrica (Pregabalin) 100 Mg Capsule 100 Mg PO TID Lantus Solostar (Insulin Glargine,Hum.rec.anlog) 100 Unit/1 Ml Insuln.pen 70 Units SQ BID Gabapentin 100 Mg Capsule 100 Mg PO TID Furosemide 40 Mg Tablet 40 Mg PO BID Fish Oil 1,000 Mg Softgel ([place]-3/Dha/Epa/Fish Oil) 1 Each Capsule 2 Each PO BID Fish Oil 1,000 Mg Softgel ([place]-3/Dha/Epa/Fish Oil) 1 Each Capsule 2 Each PO BID EXELON 9.5mg/24hr (Rivastigmine) 1 Each Patch.td24 1 Patch TD Duoneb 0.5-3(2.5) Mg/3 Ml (Albuterol/Ipratropium) 3 Ml Ampul.neb 3 Ml NEB QID Dulcolax (Bisacodyl) 10 Mg Supp.rect 10 Mg RC PRN DAILY PRN Doxycycline Hyclate 100 Mg Tablet 100 Mg PO BID Loratadine 10 Mg Tablet 10 Mg PO DAILY Celexa (Citalopram Hydrobromide) 20 Mg Tablet 20 Mg PO DAILY Celebrex (Celecoxib) 200 Mg Capsule 200 Mg PO DAILY Bactroban Nasal (Mupirocin Calcium) 1 Gm Oint...g. 1 Penelope NS BID Atorvastatin Calcium 40 Mg Tablet 40 Mg PO DAILY Aspirin Ec (Aspirin) 81 Mg Tablet.dr 81 Mg PO DAILY Ambien (Zolpidem Tartrate) 5 Mg Tablet 5 Mg PO QHS Aldactone (Spironolactone) 25 Mg Tablet 25 Mg PO DAILY07 Albuterol Sulfate Neb Soln (Albuterol Sulfate) 1.25 Mg/3 Ml Vial.neb 1.25 Mg NEB PRN PRN I have reviewed the current psychotropics carefully including drug interactions. Risk benefit ratio favors no change other than as noted in my dictated progress note. Diagnosis: Problems: (1) Urinary tract infection (2) Renal insufficiency (3) Medical clearance for psychiatric admission (4) Bipolar affective disorder, mixed (5) Anxiety disorder (6) Major depressive disorder, recurrent episode ROSA GRAMAJO MD Sep 15, 2017 19:59
[2017-09-15] MEDS: ATORVASTATIN CALCIUM 20 MG TABLET PO SCH (20:26)
[2017-09-15] MEDS: MONTELUKAST 10 MG TABLET. PO SCH (20:27)
[2017-09-15] MEDS: MELATONIN 3 MG TABLET PO SCH (20:27)
[2017-09-15] MEDS: risperiDONE 0.5 MG TABLET. PO SCH (20:27)
[2017-09-15] MEDS: traZODone 100 MG TABLET. PO SCH (20:27)
[2017-09-15] MEDS: DIVALPROEX 125 MG CAP.SPRINK PO SCH (20:40)
--- NOTE | 2017-09-15 22:54 | PN ---
DATE: 09/13/2017 This is a late entry for 09/13/2017, covers elements not covered in my initial note of 09/13/2017. Met with the patient in the evening of 09/13/2017. The patient remained somewhat withdrawn, at times labile, delusional the previous night, suspicious, believes people were manipulating her remotely and that she was dating a male staff member and that staff of the long-term sells marijuana and alcohol. Less delusional on 09/13/2017. REVIEW OF SYSTEMS: Ambulation impaired. No CV, , pulmonary, eye, ENT system symptoms on review. Reliability varies. MENTAL STATUS EXAMINATION: Oriented to herself and situation. Speech, moderate latency, often responses monosyllabic. Abstraction fair. Computation impaired. Language function intact. Mood and affect withdrawn. LABORATORY DATA: Reviewed. IMPRESSION: Bipolar 1 disorder, mixed with psychotic features; history of major depressive disorder; anxiety disorder, borderline personality disorder. PLAN: Continue current psychotropics, Celexa, Exelon, melatonin. She is also on Effexor. We will stop the Celexa. Not to use 2 antidepressants in combination and then maintain the Risperdal. Consider adding Depakote as a mood stabilizer depending on how she does on the Risperdal. Reviewed drug interactions at length. ROSA GRAMAJO MD DR: NITESH/anika JOB#: [id number] / [id number]
--- NOTE | 2017-09-15 22:58 | PN ---
DATE: 09/14/2017 This is a late entry of 09/14/2017 covers elements not covered in my initial note of 09/14/2017. SUBJECTIVE: I met with the patient in the evening of 09/14/2017. The patient remains on doxycycline for UTI, continues to be somewhat paranoid with some mood vacillations, suspicious of the staff on the unit, has not been overtly threatening, but seems irritable as I met with her individually. REVIEW OF SYSTEMS: Ambulates with a walker. No CV, , pulmonary, eye system symptoms on review. MENTAL STATUS EXAM: Oriented reasonably. Speech, low in volume, coherent, abstraction fair, computation impaired, language function intact. Mood and affect somewhat withdrawn. LABORATORY DATA: Reviewed. IMPRESSION: Bipolar 1 disorder, mixed. Rest unchanged. PLAN: Continue current psychotropics. Celexa was discontinued. Maintain Risperdal 0.5 mg at bedtime, but given the mood swings and schizoaffective disorder/bipolar disorder diagnosis, we will start Depakote 250 mg at bedtime on 09/15/2017. Check CBC, CMP, valproic acid level in 3 days. Adjust thereafter. MAN Regina GRAMAJO MD DR: NITESH/anika JOB#: [id number] / [id number]
--- NOTE | 2017-09-16 00:03 | NUR ---
Behavior Intervention Response and Plan: BIRP Note: Behavior: Assumed Care of patient, patient located in Day Room at shift change. Patient exhibited the following behavior Calm, Social, Cooperative. Brief assessment on rounds of vital signs, medication needs, lab studies, and pain. Treatment plan problems :1-2 Intervention: Patient assessed and the following interventions initiated safety checks 15 Minute Checks Cognitive Assessment , Head to toe Assessment , Medications. Response: After interactions and interventions patient responded in the following manner, Compliant , Calm ,Able to Focus on Task. Continue to assess behaviors and condition will continue to monitor throughout the shift as needed. Patient educated on ADL's, and hand hygiene. Pt asked which was the new medicine that she was to start. I told her that it was Depakote which was being used as a mood stabilizer & gave her a brief summary of what Dr Lozano hoped to accomplish w/ its' use. Pt voiced understanding Plan: Continue to monitor Master Treatment Plan for patient's progress toward short term goals of Decreased Agitation, Improved Mood, usp goals to return to previous living setting vs placement. Continue to assess patient for changes in above assessment. Monitor for medication needs, pain, and safety concerns. Hourly rounding performed to ensure safe environment.
[2017-09-16] MEDS: IPRATRPIUM/ALBUTEROL 0.5/2.5MG 3 ML NEBU. NEB SCH ×4 (05:53→22:00)
[2017-09-16 06:10] VITALS: BP 133/58
[2017-09-16] MEDS: DOXYCYCLINE HYCLATE 100 MG TABLET PO SCH ×2 (06:25→18:21)
[2017-09-16] MEDS: SPIRONOLACTONE 25 MG TABLET PO SCH (06:26)
[2017-09-16] MEDS: PANTOPRAZOLE 40 MG TABLET. PO SCH (07:58)
[2017-09-16] MEDS: NYSTATIN TOPICAL POWDER 15GM BOTTLE. TP SCH ×2 (08:01→20:12)
[2017-09-16] MEDS: POLYETHYLENE GLYCOL 3350 17 GM PACKET. PO SCH ×2 (08:01→20:20)
[2017-09-16] MEDS: INSULIN ASPART 300 UNITS/3 ML INSULN.PEN SQ SCH ×3 (08:01→17:11)
[2017-09-16] MEDS: CETIRIZINE HCL 10 MG TABLET PO SCH (08:02)
[2017-09-16] MEDS: VENLAFAXINE 75 MG TABLET. PO SCH ×2 (08:02→20:10)
[2017-09-16] MEDS: GABAPENTIN 100 MG CAPSULE. PO SCH ×3 (08:02→20:12)
[2017-09-16] MEDS: MUPIROCIN 2% TOPICAL OINTMENT 22GM TUBE. TP SCH ×2 (08:02→20:12)
[2017-09-16] MEDS: OMEGA-3 FATTY ACIDS/FISH OIL 1,000 MG CAPSULE. PO SCH ×2 (08:02→20:10)
[2017-09-16] MEDS: LACTOBACILLUS RHAMNOSUS GG 1 CAPSULE. PO SCH ×2 (08:02→20:10)
[2017-09-16] MEDS: FUROSEMIDE 40 MG TABLET PO SCH ×2 (08:02→14:56)
[2017-09-16] MEDS: ASPIRIN ENTERIC COATED 81 MG TABLET.DR. PO SCH (08:02)
[2017-09-16] MEDS: CELECOXIB 200 MG CAPSULE PO SCH (08:03)
[2017-09-16] MEDS: RIVASTIGMINE 9.5MG PATCH. TD SCH (08:03)
[2017-09-16] MEDS: THEOPHYLLINE ANHYDROUS 400 MG TABLET.ER. PO SCH (08:03)
[2017-09-16] MEDS: METOPROLOL TART IMMED RELEASE 25 MG TABLET PO SCH ×2 (08:05→20:11)
[2017-09-16] MEDS: PREGABALIN 50 MG CAPSULE PO SCH ×3 (08:06→20:19)
[2017-09-16] MEDS: INSULIN DETEMIR 300 UNITS/3 ML INSULN.PEN. SQ SCH ×2 (08:13→20:13)
[2017-09-16] MEDS ORDERED: CETIRIZINE HCL 10 MG TABLET PO SCH (09:00)
--- NOTE | 2017-09-16 11:06 | NUR ---
SW completed Review on Pt Dennise Molina, pt was approved for two additional days from the through the , with review or discharge on with Chilango Gilmore at [phone]. Auth number remains the same [id number].
[2017-09-16] MEDS: BUDESONIDE 0.5 MG/2 ML NEBU IH SCH ×2 (11:19→22:00)
[2017-09-16 14:55] VITALS: BP 108/54
[2017-09-16 15:56] VITALS: BP 137/74
--- NOTE | 2017-09-16 16:03 | NUR ---
Behavior Intervention Response and Plan: BIRP Note: Behavior: Assumed Care of patient, patient located in Dining Room at shift change. Patient exhibited the following behavior Interactive, Calm, Compliant. Brief assessment on rounds of vital signs, medication needs, lab studies, and pain. Treatment plan problems 1-2. Intervention: Patient assessed and the following interventions initiated safety checks 15 Minute Checks Cognitive Assessment , Head to toe Assessment , Medications. Response: After interactions and interventions patient responded in the following manner, Calm , Compliant ,. Continue to assess behaviors and condition will continue to monitor throughout the shift as needed. Patient educated on ADL's, and hand hygiene. Plan: Continue to monitor Master Treatment Plan for patient's progress toward short term goals of Decreased Agitation, Improved Mood, lobsterman goals to return to previous living setting vs placement. Continue to assess patient for changes in above assessment. Monitor for medication needs, pain, and safety concerns. Hourly rounding performed to ensure safe environment.
--- NOTE | 2017-09-16 19:53 | PDOC ---
Exam Note: Gagan Note: Please also refer to the separate dictated note~for this date of service dictated separately.~Patient seen individually. Discussed the patient with Nursing staff reviewed the chart.~Reviewed interim history and current functioning. Reviewed vital signs,~Labs/ Radiology~and current medications noted below. Continue current treatment with the changes noted in the dictated addendum note Assessment: Vital Signs: Vital Signs Date Time Temp Pulse Resp B/P (MAP) Pulse Ox O2 Delivery O2 Flow Rate FiO2 09/16/17 15:58 96 Nasal Cannula 3.0 09/16/17 15:56 97.4 85 18 137/74 (95) I&O Intake and Output 09/16/17 07:00 Intake Total 1445 ml Balance 1445 ml Intake Oral 1445 ml Labs: Laboratory Tests Test 09/16/17 07:22 09/16/17 11:52 09/16/17 16:46 09/16/17 19:14 Glucose (Fingerstick) 154 mg/dL (70-99) H 176 mg/dL (70-99) H 155 mg/dL (70-99) H 188 mg/dL (70-99) H Current Medications: Meds: Current Medications Ciprofloxacin (Cipro) 500 mg 1X ONCE PO Last administered on 09/11/17at 21:31; Start 09/11/17 at 21:15; Stop 09/11/17 at 21:16; Status DC Acetaminophen (Tylenol) 650 mg PRN Q6HRS PRN PO PAIN / TEMP; Start 09/11/17 at 23:30 Multi-Ingredient Ointment (Analgesic [place]) 1 penelope PRN QID PRN TP MUSCLE PAIN; Start 09/11/17 at 23:30 Al Hydroxide/Mg Hydroxide (Mylanta Plus Xs) 15 ml PRN AFTMEALHC PRN PO DYSPEPSIA Last administered on 09/12/17at 09:42; Start 09/11/17 at 23:30 Magnesium Hydroxide (Milk Of Magnesia) 2,400 mg PRN QHS PRN PO CONSTIPATION Last administered on 09/15/17at 20:54; Start 09/11/17 at 23:30 Citalopram Hydrobromide (CeleXA) 20 mg DAILY PO Last administered on 09/15/17at 07:51; Start 09/12/17 at 09:00; Stop 09/15/17 at 12:42; Status DC Rivastigmine (Exelon) 1 patch DAILY TD Last administered on 09/16/17at 08:03; Start 09/12/17 at 09:00 Venlafaxine HCl (Effexor) 75 mg BID PO Last administered on 09/16/17at 08:02; Start 09/12/17 at 09:00 Melatonin 10 mg HS PO ; Start 09/12/17 at 21:00; Stop 09/12/17 at 21:00; Status DC Aspirin (Aspirin Enteric Coated) 81 mg DAILY PO Last administered on 09/16/17at 08:02; Start 09/12/17 at 09:00 Bisacodyl (Dulcolax Supp) 10 mg PRN DAILY PRN RC CONSTIPATION; Start 09/11/17 at 23:45 Budesonide (Pulmicort) 0.5 mg BID IH Last administered on 09/16/17at 11:19; Start 09/12/17 at 09:00 Celecoxib (CeleBREX) 200 mg DAILY PO Last administered on 09/16/17at 08:03; Start 09/12/17 at 09:00 Doxycycline Hyclate (Vibra-Tab) 100 mg BID66 PO Last administered on 09/16/17at 18:21; Start 09/12/17 at 06:00; Stop 09/17/17 at 05:59 Furosemide (Lasix) 40 mg BID92 PO Last administered on 09/16/17at 14:56; Start 09/12/17 at 09:00 Gabapentin (Neurontin) 100 mg TID PO Last administered on 09/16/17at 14:56; Start 09/12/17 at 09:00 Acetaminophen/ Hydrocodone Bitart (Lortab 7.5/325) 1 tab PRN Q4HRS PRN PO PAIN ; Start 09/11/17 at 23:45 Acetaminophen/ Hydrocodone Bitart (Lortab 7.5/325) 1 tab PRN QID PRN PO PAIN; Start 09/11/17 at 23:45; Stop 09/15/17 at 17:56; Status DC Insulin Aspart (NovoLOG) 22 units TIDAC SQ Last administered on 09/16/17at 17:11 ; Start 09/12/17 at 07:30 Insulin Glargine (Lantus) 70 units BID SQ ; Start 09/12/17 at 09:00; Stop at 09:00; Status DC Albuterol/ Ipratropium (Duoneb) 3 ml RTQID NEB Last administered on 09/16/17at 15:57; Start 09/12/17 at 08:00 Metoclopramide HCl (Reglan) 2.5 mg TID PO Last administered on 09/12/17at 15:03 ; Start 09/12/17 at 09:00; Stop 09/12/17 at 19:21; Status DC Metoprolol Tartrate (Lopressor) 25 mg BID PO Last administered on 09/16/17at 08: 05; Start 09/12/17 at 09:00 Montelukast Sodium (Singulair) 10 mg HS PO Last administered on 09/15/17at 20:27 ; Start 09/12/17 at 21:00 Nitroglycerin (Nitrostat) 0.4 mg PRN Q5MIN PRN SL CHEST PAIN; Start 09/11/17 at 23:45 Pantoprazole Sodium (Protonix) 20 mg DAILYAC PO Last administered on 09/16/17at 07:58; Start 09/12/17 at 07:30 Polyethylene Glycol (miraLAX) 17 gm BID PO Last administered on 09/16/17at 08:01 ; Start 09/12/17 at 09:00 Pregabalin (Lyrica) 100 mg TID PO Last administered on 09/12/17at 08:35; Start 09/12/17 at 09:00; Stop 09/12/17 at 15:02; Status DC Spironolactone (Aldactone) 25 mg DAILY07 PO Last administered on 09/16/17at 06: 26; Start 09/12/17 at 07:00 Zolpidem Tartrate (Ambien) 5 mg QHS PO ; Start 09/12/17 at 21:00; Stop 09/12/17 at 21:00; Status DC Non-Formulary Medication 1.25 mg PRN PRN NEB SHORTNESS OF BREATH; Start at 23:45; Status UNV Atorvastatin Calcium (Lipitor) 40 mg HS PO Last administered on 09/15/17at 20:26 ; Start 09/12/17 at 21:00 Cetirizine HCl (ZyrTEC) 10 mg DAILY PO Last administered on 09/16/17at 08:02; Start 09/12/17 at 09:00 Al Hydroxide/Mg Hydroxide (Mylanta Plus Xs) 10 ml PRN AFTMEAL PRN PO DYSPEPSIA ; Start 09/11/17 at 23:45 Miconazole Nitrate (Monistat-Derm) 1 penelope BID TP Last administered on 09/13/17at 07:59; Start 09/12/17 at 09:00; Stop 09/13/17 at 09:03; Status DC Mupirocin (Bactroban) 1 penelope BID TP Last administered on 09/16/17at 08:02; Start 09/12/17 at 09:00 Non-Formulary Medication 2 each BID PO ; Start 09/12/17 at 09:00; Status UNV Fish Oil (Fish Oil) 2,000 mg BID PO Last administered on 09/16/17at 08:02; Start 09/12/17 at 09:00 Artificial Tears (Artificial Tears) 2 drop PRN QID PRN OU DRY EYE; Start at 07:15 Theophylline (Theophylline Extended Release) 200 mg DAILY PO Last administered on 09/16/17at 08:03; Start 09/12/17 at 09:00 Albuterol Sulfate (Ventolin) 2.5 mg PRN Q6HRS PRN NEB SHORTNESS OF BREATH; Start 09/12/17 at 00:30 Albuterol/ Ipratropium (Duoneb) 3 ml STK-MED ONCE .ROUTE ; Start 09/12/17 at 05: 17; Stop 09/12/17 at 05:18; Status DC Insulin Detemir (Levemir) 70 units BID SQ Last administered on 09/16/17at 08:13 ; Start 09/12/17 at 09:00 Melatonin 6 mg HS PO Last administered on 09/15/17at 20:27; Start 09/12/17 at 21 :00 Trazodone HCl (Desyrel) 100 mg QHS PO Last administered on 09/15/17at 20:27; Start 09/12/17 at 21:00 Trazodone HCl (Desyrel) 100 mg PRN QHS PRN PO insomnia ; Start 09/12/17 at 21: 00 Pregabalin (Lyrica) 100 mg TID PO Last administered on 09/16/17at 14:57; Start 09/12/17 at 14:00 Vitamin D (Vitamin D3) 50,000 unit WEEKLY PO ; Start 09/19/17 at 09:00 Promethazine HCl (Phenergan) 12.5 mg PRN Q4HRS PRN PO NAUSEA/VOMITING; Start at 19:00 Risperidone (RisperDAL) 0.5 mg QHS PO Last administered on 09/15/17at 20:27; Start 09/12/17 at 21:00 Nystatin (Nystop) 1 penelope BID TP Last administered on 09/16/17at 08:01; Start at 09:00 Lactobacillus Rhamnosus (Culturelle) 1 cap BID PO Last administered on at 08:02; Start 09/14/17 at 09:00 Divalproex Sodium (Depakote Sprinkles) 250 mg HS PO Last administered on at 20:40; Start 09/15/17 at 21:00 Cetirizine HCl (ZyrTEC) 10 mg DAILY PO ; Start 09/16/17 at 09:00; Status Cancel Active Scripts Active Reported Venlafaxine Hcl 75 Mg Tablet 75 Mg PO BID Naldo-24 (Theophylline Anhydrous) 200 Mg Cap.er.24h 200 Mg PO DAILY Systane Ultra 0.4-0.3% Eye Drp (Propylene Glycol/Peg 400) 10 Ml Drops 2 Drop OU PRN QID PRN Pulmicort (Budesonide) 0.5 Mg/2 Ml Ampul.neb 0.5 Mg IH BID Pantoprazole Sodium 40 Mg Tablet.dr 20 Mg PO DAILY Novolog Flexpen (Insulin Aspart) 100 Unit/1 Ml Insuln.pen 22 Units SQ TIDAC Hydrocodone-Apap 7.5-325 (Hydrocodone Bit/Acetaminophen) 1 Each Tablet 1 Tab PO QID PRN Hydrocodone-Apap 7.5-325 (Hydrocodone Bit/Acetaminophen) 1 Each Tablet 1 Tab PO PRN Q4HRS PRN NITROGLYCERIN SubLingual (Nitroglycerin) 0.4 Mg Tab.subl 0.4 Mg SL PRN Q5MIN PRN Alum-Mag Hydroxide-Simeth Liq (Mag Hydrox/Al Hydrox/Simeth) 360 Ml Oral.susp 10 Ml PO PRN AFTMEAL PRN Montelukast Sodium Tablet (Montelukast Sodium) 10 Mg Tablet 10 Mg PO DAILY Miralax (Polyethylene Glycol 3350) 17 Gm Powd.pack 17 Gm PO BID Miconazole Nitrate 45 Gm Cream.appl 1 Penelope TP BID Metoprolol Tartrate 25 Mg Tablet 25 Mg PO BID Reglan (Metoclopramide Hcl) 10 Mg Tablet 2.5 Mg PO TID Melatonin 3 Mg Tablet 10 Mg PO HS Lyrica (Pregabalin) 100 Mg Capsule 100 Mg PO TID Lantus Solostar (Insulin Glargine,Hum.rec.anlog) 100 Unit/1 Ml Insuln.pen 70 Units SQ BID Gabapentin 100 Mg Capsule 100 Mg PO TID Furosemide 40 Mg Tablet 40 Mg PO BID Fish Oil 1,000 Mg Softgel ([place]-3/Dha/Epa/Fish Oil) 1 Each Capsule 2 Each PO BID Fish Oil 1,000 Mg Softgel ([place]-3/Dha/Epa/Fish Oil) 1 Each Capsule 2 Each PO BID EXELON 9.5mg/24hr (Rivastigmine) 1 Each Patch.td24 1 Patch TD Duoneb 0.5-3(2.5) Mg/3 Ml (Albuterol/Ipratropium) 3 Ml Ampul.neb 3 Ml NEB QID Dulcolax (Bisacodyl) 10 Mg Supp.rect 10 Mg RC PRN DAILY PRN Doxycycline Hyclate 100 Mg Tablet 100 Mg PO BID Loratadine 10 Mg Tablet 10 Mg PO DAILY Celexa (Citalopram Hydrobromide) 20 Mg Tablet 20 Mg PO DAILY Celebrex (Celecoxib) 200 Mg Capsule 200 Mg PO DAILY Bactroban Nasal (Mupirocin Calcium) 1 Gm Oint...g. 1 Penelope NS BID Atorvastatin Calcium 40 Mg Tablet 40 Mg PO DAILY Aspirin Ec (Aspirin) 81 Mg Tablet.dr 81 Mg PO DAILY Ambien (Zolpidem Tartrate) 5 Mg Tablet 5 Mg PO QHS Aldactone (Spironolactone) 25 Mg Tablet 25 Mg PO DAILY07 Albuterol Sulfate Neb Soln (Albuterol Sulfate) 1.25 Mg/3 Ml Vial.neb 1.25 Mg NEB PRN PRN I have reviewed the current psychotropics carefully including drug interactions. Risk benefit ratio favors no change other than as noted in my dictated progress note. Diagnosis: Problems: (1) Bipolar affective disorder, mixed (2) Anxiety disorder (3) Major depressive disorder, recurrent episode ROSA GRAMAJO MD Sep 16, 2017 19:53
[2017-09-16] MEDS: DIVALPROEX 125 MG CAP.SPRINK PO SCH (20:10)
[2017-09-16] MEDS: traZODone 100 MG TABLET. PO SCH (20:10)
[2017-09-16] MEDS: ATORVASTATIN CALCIUM 20 MG TABLET PO SCH (20:10)
[2017-09-16] MEDS: MELATONIN 3 MG TABLET PO SCH (20:10)
[2017-09-16] MEDS: risperiDONE 0.5 MG TABLET. PO SCH (20:12)
[2017-09-16] MEDS: MONTELUKAST 10 MG TABLET. PO SCH (20:12)
--- NOTE | 2017-09-16 21:25 | NUR ---
Behavior Intervention Response and Plan: BIRP Note: Behavior: Assumed Care of patient, patient located in Day Room at shift change. Patient exhibited the following behavior Calm, Social, Interactive. Brief assessment on rounds of vital signs, medication needs, lab studies, and pain. Treatment plan problems .1&2 Intervention: Patient assessed and the following interventions initiated safety checks 15 Minute Checks Cognitive Assessment , Head to toe Assessment , Medications. Response: After interactions and interventions patient responded in the following manner, Cooperative , Appropriate ,Compliant. Continue to assess behaviors and condition will continue to monitor throughout the shift as needed. Patient educated on ADL's, and hand hygiene. 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 Continue to assess patient for changes in above assessment. Monitor for medication needs, pain, and safety concerns. Hourly rounding performed to ensure safe environment.
[2017-09-17] MEDS: SPIRONOLACTONE 25 MG TABLET PO SCH (05:43)
[2017-09-17 06:06] VITALS: BP 150/68
[2017-09-17] MEDS: IPRATRPIUM/ALBUTEROL 0.5/2.5MG 3 ML NEBU. NEB SCH ×4 (06:14→21:56)
[2017-09-17] MEDS: OMEGA-3 FATTY ACIDS/FISH OIL 1,000 MG CAPSULE. PO SCH ×2 (08:55→20:03)
[2017-09-17] MEDS: PANTOPRAZOLE 40 MG TABLET. PO SCH (08:56)
[2017-09-17] MEDS: FUROSEMIDE 40 MG TABLET PO SCH ×2 (08:56→12:49)
[2017-09-17] MEDS: VENLAFAXINE 75 MG TABLET. PO SCH ×2 (08:57→20:03)
[2017-09-17] MEDS: CELECOXIB 200 MG CAPSULE PO SCH (08:57)
[2017-09-17] MEDS: CETIRIZINE HCL 10 MG TABLET PO SCH (08:57)
[2017-09-17] MEDS: GABAPENTIN 100 MG CAPSULE. PO SCH ×3 (08:57→20:04)
[2017-09-17] MEDS: LACTOBACILLUS RHAMNOSUS GG 1 CAPSULE. PO SCH ×2 (08:58→20:03)
[2017-09-17] MEDS: METOPROLOL TART IMMED RELEASE 25 MG TABLET PO SCH ×2 (08:58→20:04)
[2017-09-17] MEDS: POLYETHYLENE GLYCOL 3350 17 GM PACKET. PO SCH ×2 (08:58→20:04)
[2017-09-17] MEDS: RIVASTIGMINE 9.5MG PATCH. TD SCH (08:58)
[2017-09-17] MEDS: THEOPHYLLINE ANHYDROUS 400 MG TABLET.ER. PO SCH (09:01)
[2017-09-17] MEDS: NYSTATIN TOPICAL POWDER 15GM BOTTLE. TP SCH ×2 (09:02→20:04)
[2017-09-17] MEDS: MUPIROCIN 2% TOPICAL OINTMENT 22GM TUBE. TP SCH ×2 (09:02→20:05)
[2017-09-17] MEDS: ASPIRIN ENTERIC COATED 81 MG TABLET.DR. PO SCH (09:03)
[2017-09-17] MEDS: PREGABALIN 50 MG CAPSULE PO SCH ×3 (09:04→20:27)
[2017-09-17] MEDS: INSULIN ASPART 300 UNITS/3 ML INSULN.PEN SQ SCH ×3 (09:06→17:40)
[2017-09-17] MEDS: INSULIN DETEMIR 300 UNITS/3 ML INSULN.PEN. SQ SCH ×2 (09:08→20:07)
[2017-09-17] MEDS: BUDESONIDE 0.5 MG/2 ML NEBU IH SCH (10:36)
--- NOTE | 2017-09-17 10:36 | NUR ---
SW met with pt in the day room, pt states she is doing better, and that when she came in she was very angry and upset. Pt stated staff told her she wasn't making any sense and they didn't understand what she was talking about. Pt appeared with a very flat affect, pt had difficulty at times holding eye contact and staying on track with the conversation. Pt would go back to stating she was upset with how she was treated at the [facility]. Pt states she only went to the [facility] as her was not able to care for her any longer, she states he had to stay home with her and would become upset as he followed the races and could no longer go. SW talked with pt about her past, pt states her last job she held for about 12 years. Pt reports prior to this she did have multiple jobs. Pt declines any issues with spending money states she was able to save up her tip money to buy a car. Pt was very proud of this and told this verse writer about her car. KODY will continue to meet with pt as well as coordinate discharge plans with pt facility.
--- NOTE | 2017-09-17 15:00 | NUR ---
Behavior Intervention Response and Plan: BIRP Note: Behavior: Assumed Care of patient, patient located in Dining Room at shift change. Patient exhibited the following behavior Calm, Compliant, Cooperative. Brief assessment on rounds of vital signs, medication needs, lab studies, and pain. Treatment plan problems altered thought process and fall risk. Intervention: Patient assessed and the following interventions initiated safety checks 15 Minute Checks Head to toe Assessment , Cognitive Assessment , Medications. Response: After interactions and interventions patient responded in the following manner, Calm , Cooperative ,Compliant. Continue to assess behaviors and condition will continue to monitor throughout the shift as needed. Patient educated on ADL's, and hand hygiene. Plan: Continue to monitor Master Treatment Plan for patient's progress toward short term goals of Decreased Aggression, Decreased Agitation, longterm goals to return to previous living setting vs placement. Continue to assess patient for changes in above assessment. Monitor for medication needs, pain, and safety concerns. Hourly rounding performed to ensure safe environment.
[2017-09-17 16:23] VITALS: BP 131/69
--- NOTE | 2017-09-17 19:55 | PDOC ---
Exam Note: Gagan Note: Please also refer to the separate dictated note~for this date of service dictated separately.~Patient seen individually. Discussed the patient with Nursing staff reviewed the chart.~Reviewed interim history and current functioning. Reviewed vital signs,~Labs/ Radiology~and current medications noted below. Continue current treatment with the changes noted in the dictated addendum note Assessment: Vital Signs: Vital Signs Date Time Temp Pulse Resp B/P (MAP) Pulse Ox O2 Delivery O2 Flow Rate FiO2 09/17/17 16:23 97.4 80 18 131/69 (89) 95 09/17/17 16:00 Nasal Cannula 3.0 I&O Intake and Output 09/17/17 07:00 Intake Total 1320 ml Balance 1320 ml Intake Oral 1320 ml # Voids 1 # Bowel Movements 1 Labs: Laboratory Tests Test 09/17/17 07:30 09/17/17 11:50 09/17/17 16:54 09/17/17 19:39 Glucose (Fingerstick) 189 mg/dL (70-99) H 134 mg/dL (70-99) H 154 mg/dL (70-99) H 138 mg/dL (70-99) H Current Medications: Meds: Current Medications Ciprofloxacin (Cipro) 500 mg 1X ONCE PO Last administered on 09/11/17at 21:31; Start 09/11/17 at 21:15; Stop 09/11/17 at 21:16; Status DC Acetaminophen (Tylenol) 650 mg PRN Q6HRS PRN PO PAIN / TEMP; Start 09/11/17 at 23:30 Multi-Ingredient Ointment (Analgesic [place]) 1 penelope PRN QID PRN TP MUSCLE PAIN; Start 09/11/17 at 23:30 Al Hydroxide/Mg Hydroxide (Mylanta Plus Xs) 15 ml PRN AFTMEALHC PRN PO DYSPEPSIA Last administered on 09/12/17at 09:42; Start 09/11/17 at 23:30 Magnesium Hydroxide (Milk Of Magnesia) 2,400 mg PRN QHS PRN PO CONSTIPATION Last administered on 09/15/17at 20:54; Start 09/11/17 at 23:30 Citalopram Hydrobromide (CeleXA) 20 mg DAILY PO Last administered on 09/15/17at 07:51; Start 09/12/17 at 09:00; Stop 09/15/17 at 12:42; Status DC Rivastigmine (Exelon) 1 patch DAILY TD Last administered on 09/17/17at 08:58; Start 09/12/17 at 09:00 Venlafaxine HCl (Effexor) 75 mg BID PO Last administered on 09/17/17at 08:57; Start 09/12/17 at 09:00 Melatonin 10 mg HS PO ; Start 09/12/17 at 21:00; Stop 09/12/17 at 21:00; Status DC Aspirin (Aspirin Enteric Coated) 81 mg DAILY PO Last administered on 09/17/17at 09:03; Start 09/12/17 at 09:00 Bisacodyl (Dulcolax Supp) 10 mg PRN DAILY PRN RC CONSTIPATION; Start 09/11/17 at 23:45 Budesonide (Pulmicort) 0.5 mg BID IH Last administered on 09/17/17at 10:36; Start 09/12/17 at 09:00 Celecoxib (CeleBREX) 200 mg DAILY PO Last administered on 09/17/17at 08:57; Start 09/12/17 at 09:00 Doxycycline Hyclate (Vibra-Tab) 100 mg BID66 PO Last administered on 09/16/17at 18:21; Start 09/12/17 at 06:00; Stop 09/17/17 at 05:59; Status DC Furosemide (Lasix) 40 mg BID92 PO Last administered on 09/17/17at 12:49; Start 09/12/17 at 09:00 Gabapentin (Neurontin) 100 mg TID PO Last administered on 09/17/17at 12:49; Start 09/12/17 at 09:00 Acetaminophen/ Hydrocodone Bitart (Lortab 7.5/325) 1 tab PRN Q4HRS PRN PO PAIN ; Start 09/11/17 at 23:45 Acetaminophen/ Hydrocodone Bitart (Lortab 7.5/325) 1 tab PRN QID PRN PO PAIN; Start 09/11/17 at 23:45; Stop 09/15/17 at 17:56; Status DC Insulin Aspart (NovoLOG) 22 units TIDAC SQ Last administered on 09/17/17at 17:40 ; Start 09/12/17 at 07:30 Insulin Glargine (Lantus) 70 units BID SQ ; Start 09/12/17 at 09:00; Stop at 09:00; Status DC Albuterol/ Ipratropium (Duoneb) 3 ml RTQID NEB Last administered on 09/17/17at 15:58; Start 09/12/17 at 08:00 Metoclopramide HCl (Reglan) 2.5 mg TID PO Last administered on 09/12/17at 15:03 ; Start 09/12/17 at 09:00; Stop 09/12/17 at 19:21; Status DC Metoprolol Tartrate (Lopressor) 25 mg BID PO Last administered on 09/17/17at 08: 58; Start 09/12/17 at 09:00 Montelukast Sodium (Singulair) 10 mg HS PO Last administered on 09/16/17at 20:12 ; Start 09/12/17 at 21:00 Nitroglycerin (Nitrostat) 0.4 mg PRN Q5MIN PRN SL CHEST PAIN; Start 09/11/17 at 23:45 Pantoprazole Sodium (Protonix) 20 mg DAILYAC PO Last administered on 09/17/17at 08:56; Start 09/12/17 at 07:30 Polyethylene Glycol (miraLAX) 17 gm BID PO Last administered on 09/17/17at 08:58 ; Start 09/12/17 at 09:00 Pregabalin (Lyrica) 100 mg TID PO Last administered on 09/12/17at 08:35; Start 09/12/17 at 09:00; Stop 09/12/17 at 15:02; Status DC Spironolactone (Aldactone) 25 mg DAILY07 PO Last administered on 09/17/17at 05: 43; Start 09/12/17 at 07:00 Zolpidem Tartrate (Ambien) 5 mg QHS PO ; Start 09/12/17 at 21:00; Stop 09/12/17 at 21:00; Status DC Non-Formulary Medication 1.25 mg PRN PRN NEB SHORTNESS OF BREATH; Start at 23:45; Status UNV Atorvastatin Calcium (Lipitor) 40 mg HS PO Last administered on 09/16/17at 20:10 ; Start 09/12/17 at 21:00 Cetirizine HCl (ZyrTEC) 10 mg DAILY PO Last administered on 09/17/17at 08:57; Start 09/12/17 at 09:00 Al Hydroxide/Mg Hydroxide (Mylanta Plus Xs) 10 ml PRN AFTMEAL PRN PO DYSPEPSIA ; Start 09/11/17 at 23:45 Miconazole Nitrate (Monistat-Derm) 1 penelope BID TP Last administered on 09/13/17at 07:59; Start 09/12/17 at 09:00; Stop 09/13/17 at 09:03; Status DC Mupirocin (Bactroban) 1 penelope BID TP Last administered on 09/17/17at 09:02; Start 09/12/17 at 09:00 Non-Formulary Medication 2 each BID PO ; Start 09/12/17 at 09:00; Status UNV Fish Oil (Fish Oil) 2,000 mg BID PO Last administered on 09/17/17at 08:55; Start 09/12/17 at 09:00 Artificial Tears (Artificial Tears) 2 drop PRN QID PRN OU DRY EYE; Start at 07:15 Theophylline (Theophylline Extended Release) 200 mg DAILY PO Last administered on 09/17/17at 09:01; Start 09/12/17 at 09:00 Albuterol Sulfate (Ventolin) 2.5 mg PRN Q6HRS PRN NEB SHORTNESS OF BREATH; Start 09/12/17 at 00:30 Albuterol/ Ipratropium (Duoneb) 3 ml STK-MED ONCE .ROUTE ; Start 09/12/17 at 05: 17; Stop 09/12/17 at 05:18; Status DC Insulin Detemir (Levemir) 70 units BID SQ Last administered on 09/17/17at 09:08 ; Start 09/12/17 at 09:00 Melatonin 6 mg HS PO Last administered on 09/16/17at 20:10; Start 09/12/17 at 21 :00 Trazodone HCl (Desyrel) 100 mg QHS PO Last administered on 09/16/17at 20:10; Start 09/12/17 at 21:00 Trazodone HCl (Desyrel) 100 mg PRN QHS PRN PO insomnia ; Start 09/12/17 at 21: 00 Pregabalin (Lyrica) 100 mg TID PO Last administered on 09/17/17at 12:49; Start 09/12/17 at 14:00 Vitamin D (Vitamin D3) 50,000 unit WEEKLY PO ; Start 09/19/17 at 09:00 Promethazine HCl (Phenergan) 12.5 mg PRN Q4HRS PRN PO NAUSEA/VOMITING; Start at 19:00 Risperidone (RisperDAL) 0.5 mg QHS PO Last administered on 09/16/17at 20:12; Start 09/12/17 at 21:00 Nystatin (Nystop) 1 penelope BID TP Last administered on 09/17/17at 09:02; Start at 09:00 Lactobacillus Rhamnosus (Culturelle) 1 cap BID PO Last administered on at 08:58; Start 09/14/17 at 09:00 Divalproex Sodium (Depakote Sprinkles) 250 mg HS PO Last administered on at 20:10; Start 09/15/17 at 21:00 Cetirizine HCl (ZyrTEC) 10 mg DAILY PO ; Start 09/16/17 at 09:00; Status Cancel Active Scripts Active Reported Venlafaxine Hcl 75 Mg Tablet 75 Mg PO BID Naldo-24 (Theophylline Anhydrous) 200 Mg Cap.er.24h 200 Mg PO DAILY Systane Ultra 0.4-0.3% Eye Drp (Propylene Glycol/Peg 400) 10 Ml Drops 2 Drop OU PRN QID PRN Pulmicort (Budesonide) 0.5 Mg/2 Ml Ampul.neb 0.5 Mg IH BID Pantoprazole Sodium 40 Mg Tablet.dr 20 Mg PO DAILY Novolog Flexpen (Insulin Aspart) 100 Unit/1 Ml Insuln.pen 22 Units SQ TIDAC Hydrocodone-Apap 7.5-325 (Hydrocodone Bit/Acetaminophen) 1 Each Tablet 1 Tab PO QID PRN Hydrocodone-Apap 7.5-325 (Hydrocodone Bit/Acetaminophen) 1 Each Tablet 1 Tab PO PRN Q4HRS PRN NITROGLYCERIN SubLingual (Nitroglycerin) 0.4 Mg Tab.subl 0.4 Mg SL PRN Q5MIN PRN Alum-Mag Hydroxide-Simeth Liq (Mag Hydrox/Al Hydrox/Simeth) 360 Ml Oral.susp 10 Ml PO PRN AFTMEAL PRN Montelukast Sodium Tablet (Montelukast Sodium) 10 Mg Tablet 10 Mg PO DAILY Miralax (Polyethylene Glycol 3350) 17 Gm Powd.pack 17 Gm PO BID Miconazole Nitrate 45 Gm Cream.appl 1 Penelope TP BID Metoprolol Tartrate 25 Mg Tablet 25 Mg PO BID Reglan (Metoclopramide Hcl) 10 Mg Tablet 2.5 Mg PO TID Melatonin 3 Mg Tablet 10 Mg PO HS Lyrica (Pregabalin) 100 Mg Capsule 100 Mg PO TID Lantus Solostar (Insulin Glargine,Hum.rec.anlog) 100 Unit/1 Ml Insuln.pen 70 Units SQ BID Gabapentin 100 Mg Capsule 100 Mg PO TID Furosemide 40 Mg Tablet 40 Mg PO BID Fish Oil 1,000 Mg Softgel ([place]-3/Dha/Epa/Fish Oil) 1 Each Capsule 2 Each PO BID Fish Oil 1,000 Mg Softgel ([place]-3/Dha/Epa/Fish Oil) 1 Each Capsule 2 Each PO BID EXELON 9.5mg/24hr (Rivastigmine) 1 Each Patch.td24 1 Patch TD Duoneb 0.5-3(2.5) Mg/3 Ml (Albuterol/Ipratropium) 3 Ml Ampul.neb 3 Ml NEB QID Dulcolax (Bisacodyl) 10 Mg Supp.rect 10 Mg RC PRN DAILY PRN Doxycycline Hyclate 100 Mg Tablet 100 Mg PO BID Loratadine 10 Mg Tablet 10 Mg PO DAILY Celexa (Citalopram Hydrobromide) 20 Mg Tablet 20 Mg PO DAILY Celebrex (Celecoxib) 200 Mg Capsule 200 Mg PO DAILY Bactroban Nasal (Mupirocin Calcium) 1 Gm Oint...g. 1 Penelope NS BID Atorvastatin Calcium 40 Mg Tablet 40 Mg PO DAILY Aspirin Ec (Aspirin) 81 Mg Tablet.dr 81 Mg PO DAILY Ambien (Zolpidem Tartrate) 5 Mg Tablet 5 Mg PO QHS Aldactone (Spironolactone) 25 Mg Tablet 25 Mg PO DAILY07 Albuterol Sulfate Neb Soln (Albuterol Sulfate) 1.25 Mg/3 Ml Vial.neb 1.25 Mg NEB PRN PRN I have reviewed the current psychotropics carefully including drug interactions. Risk benefit ratio favors no change other than as noted in my dictated progress note. Diagnosis: Problems: (1) Bipolar affective disorder, mixed (2) Anxiety disorder (3) Major depressive disorder, recurrent episode ROSA GRAMAJO MD Sep 17, 2017 19:54
[2017-09-17] MEDS: MELATONIN 3 MG TABLET PO SCH (20:02)
[2017-09-17] MEDS: ATORVASTATIN CALCIUM 20 MG TABLET PO SCH (20:03)
[2017-09-17] MEDS: DIVALPROEX 125 MG CAP.SPRINK PO SCH (20:03)
[2017-09-17] MEDS: traZODone 100 MG TABLET. PO SCH (20:03)
[2017-09-17] MEDS: MONTELUKAST 10 MG TABLET. PO SCH (20:04)
[2017-09-17] MEDS: risperiDONE 0.5 MG TABLET. PO SCH (20:04)
--- NOTE | 2017-09-17 21:48 | NUR ---
Behavior Intervention Response and Plan: BIRP Note: Behavior: Assumed Care of patient, patient located in Day Room at shift change. Patient exhibited the following behavior Calm, Interactive, Social. Brief assessment on rounds of vital signs, medication needs, lab studies, and pain. Treatment plan problems .1&2 Intervention: Patient assessed and the following interventions initiated safety checks 15 Minute Checks Cognitive Assessment , Head to toe Assessment , Medications. Response: After interactions and interventions patient responded in the following manner, Appropriate , Compliant ,Cooperative. Continue to assess behaviors and condition will continue to monitor throughout the shift as needed. Patient educated on ADL's, and hand hygiene. 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 Continue to assess patient for changes in above assessment. Monitor for medication needs, pain, and safety concerns. Hourly rounding performed to ensure safe environment.
--- NOTE | 2017-09-17 23:17 | PN ---
DATE: 09/15/2017 This is a late entry for 09/15/2017 covers elements not covered in my initial note of 09/15/2017. SUBJECTIVE: I met with the patient evening of 09/15/2017. Overall, the patient has had a better day, less psychotic. Chest x-ray was negative. WBCs have increased from 12.4-15.4. She is somewhat congested, Zyrtec started. UA shows normal michele, on doxycycline currently. REVIEW OF SYSTEMS: Some shortness of breath on O2 supplements. Ambulation impaired with walker. No CV, , eye, ENT system symptoms on review. MENTAL STATUS EXAM: Reasonably oriented. Speech is coherent, abstraction fair, computation impaired, language function intact. Mood and affect somewhat labile at times, but improved. No active suicidal or homicidal ideation. IMPRESSION: Bipolar 1 disorder, mixed anxiety disorder, unspecified. PLAN: Continue Depakote. Check a valproic acid level on 09/18/2017. Risperdal has been initiated for her psychotic symptoms. Adjust as clinically indicated. ROSA GRAMAJO MD DR: NITESH/anika JOB#: [id number] / [id number]
--- NOTE | 2017-09-17 23:25 | PN ---
DATE: 09/16/2017 This late entry 09/16/2017 covers elements not covered in my initial note 09/16/2017. I met with the patient evening of 09/16/2017. Overall, the patient continues to be somewhat anxious, but less paranoid. REVIEW OF SYSTEMS: Ambulation impaired with walker. She is on O2 supplements. No CV, , eye, ENT system symptoms on review. MENTAL STATUS EXAM: Reasonably oriented. Speech coherent, has some latency. Abstraction fair, computation impaired, language function intact. Mood and affect somewhat anxious, labile at times. LABORATORY DATA: Reviewed. IMPRESSION: Bipolar 1 disorder, mixed anxiety disorder, unspecified. Rest unchanged. PLAN: Continue Effexor 75 mg b.i.d., Depakote 250 mg at bedtime. Check labs level on 09/18/2017, adjust further thereafter. Maintain Risperdal 0.5 mg at bedtime. MAN Regina GRAMAJO MD DR: NITESH/anika JOB#: [id number] / [id number]
[2017-09-18] MEDS ORDERED: ACET325T9 PO (00:22)
[2017-09-18] MEDS ORDERED: ALBU2.5V5 NEB (00:24)
[2017-09-18] MEDS ORDERED: CETI10TA22 PO (00:27)
[2017-09-18] MEDS ORDERED: CHOL500050 PO (00:30)
[2017-09-18] MEDS ORDERED: DIVA125C PO (00:30)
[2017-09-18] MEDS ORDERED: MAG30ORA2 PO (00:37)
[2017-09-18] MEDS ORDERED: L. R1CAP2 PO (00:38)
[2017-09-18] MEDS ORDERED: MAGN2400 PO (00:39)
[2017-09-18] MEDS ORDERED: METH29OI TP (00:41)
[2017-09-18] MEDS ORDERED: NYST15PO9 TP (00:46)
[2017-09-18] MEDS ORDERED: POLY15DR27 OU (00:49)
[2017-09-18] MEDS ORDERED: PROM12.56 PO (00:51)
[2017-09-18] MEDS ORDERED: PROM25AM6 IJ (00:51)
[2017-09-18] MEDS ORDERED: RISP0.5T24 PO (00:54)
[2017-09-18] MEDS ORDERED: TRAZ-90 PO ×2 (00:54→00:55)
[2017-09-18] MEDS: SPIRONOLACTONE 25 MG TABLET PO SCH (05:37)
[2017-09-18 05:41] VITALS: BP 128/56
[2017-09-18] MEDS: IPRATRPIUM/ALBUTEROL 0.5/2.5MG 3 ML NEBU. NEB SCH ×4 (06:07→21:49)
[2017-09-18] MEDS: BUDESONIDE 0.5 MG/2 ML NEBU IH SCH ×3 (06:07→21:49)
[2017-09-18] MEDS: RIVASTIGMINE 9.5MG PATCH. TD SCH (09:01)
[2017-09-18] MEDS: POLYETHYLENE GLYCOL 3350 17 GM PACKET. PO SCH ×2 (09:01→20:57)
[2017-09-18] MEDS: OMEGA-3 FATTY ACIDS/FISH OIL 1,000 MG CAPSULE. PO SCH ×2 (09:01→20:58)
[2017-09-18] MEDS: CETIRIZINE HCL 10 MG TABLET PO SCH (09:01)
[2017-09-18] MEDS: PANTOPRAZOLE 40 MG TABLET. PO SCH (09:02)
[2017-09-18] MEDS: METOPROLOL TART IMMED RELEASE 25 MG TABLET PO SCH ×2 (09:02→20:58)
[2017-09-18] MEDS: FUROSEMIDE 40 MG TABLET PO SCH ×2 (09:03→12:41)
[2017-09-18] MEDS: VENLAFAXINE 75 MG TABLET. PO SCH ×2 (09:03→20:57)
[2017-09-18] MEDS: CELECOXIB 200 MG CAPSULE PO SCH (09:03)
[2017-09-18] MEDS: LACTOBACILLUS RHAMNOSUS GG 1 CAPSULE. PO SCH ×2 (09:03→20:58)
[2017-09-18] MEDS: ASPIRIN ENTERIC COATED 81 MG TABLET.DR. PO SCH (09:03)
[2017-09-18] MEDS: GABAPENTIN 100 MG CAPSULE. PO SCH ×3 (09:03→20:57)
[2017-09-18] MEDS: PREGABALIN 50 MG CAPSULE PO SCH ×3 (09:05→21:07)
[2017-09-18] MEDS: THEOPHYLLINE ANHYDROUS 400 MG TABLET.ER. PO SCH (09:05)
[2017-09-18] MEDS: INSULIN DETEMIR 300 UNITS/3 ML INSULN.PEN. SQ SCH ×2 (09:09→21:02)
[2017-09-18] MEDS: INSULIN ASPART 300 UNITS/3 ML INSULN.PEN SQ SCH ×3 (09:10→17:06)
[2017-09-18 09:26] LABS: BASO # 0.1 x10^3/uL (0.0-0.2); BASO % 1 % (0-3); EOS # 0.3 x10^3/uL (0.0-0.7); EOS % 2 % (0-3); HEMATOCRIT 40.9 % (36.0-47.0); LYMPH # 1.7 x10^3/uL (1.0-4.8); LYMPH % 11 % (24-48); MEAN CORPUSCULAR HEMOGLOBIN 25 pg (25-35); MEAN CORPUSCULAR HGB CONC 32 g/dL (31-37); MEAN CORPUSCULAR VOLUME 80 fL (79-100); MONO # 0.9 x10^3/uL (0.0-1.1); MONO % 6 % (0-9); NEUT # 11.8 x10^3uL (1.8-7.7); NEUT % 80 % (31-73); PLATELET COUNT 213 x10^3/uL (140-400); RED CELL DISTRIBUTION WIDTH 14.9 % (11.5-14.5); WHITE BLOOD COUNT 14.8 x10^3/uL (4.0-11.0)
[2017-09-18 09:39] LABS: ALBUMIN 3.3 g/dL (3.4-5.0); ALBUMIN/GLOBULIN RATIO 0.7 (1.0-1.7); ALK PHOS 98 U/L (46-116); ALT (SGPT) 27 U/L (14-59); ANION GAP 6 (6-14); AST (SGOT) 8 U/L (15-37); BLOOD UREA NITROGEN 17 mg/dL (7-20); BUN/CREATININE RATIO 17 (6-20); CALCIUM 9.7 mg/dL (8.5-10.1); CARBON DIOXIDE 36 mmol/L (21-32); CHLORIDE 99 mmol/L (98-107); GFR 55.8; GLUCOSE 227 mg/dL (70-99); POTASSIUM 4.1 mmol/L (3.5-5.1); SODIUM 141 mmol/L (136-145); TOTAL BILIRUBIN 0.6 mg/dL (0.2-1.0); TOTAL PROTEIN 7.9 g/dL (6.4-8.2)
[2017-09-18 09:42] LABS: VAL ACID 17 mcg/mL (50-100)
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
[2017-09-18] MEDS: MUPIROCIN 2% TOPICAL OINTMENT 22GM TUBE. TP SCH ×2 (11:00→21:01)
[2017-09-18] MEDS: NYSTATIN TOPICAL POWDER 15GM BOTTLE. TP SCH ×2 (11:01→20:59)
--- NOTE | 2017-09-18 15:00 | NUR ---
WEEKLY THERAPEUTIC RECREATION NOTE Date of Admission: 09/11/2017 Date of AT Assessment: 09/13/2017 Goal aimed: to increase socialization and engagement Initial goal: Pt. will participate in all groups she is invited to. Weekly progress towards goal: on track Group participation level: full Behaviors observed: willing to participate, calm, cooperative, flexible, pleasant Plan: no changes to goal
--- NOTE | 2017-09-18 15:00 | NUR ---
Behavior Intervention Response and Plan: BIRP Note: Behavior: Assumed Care of patient, patient located in Dining Room at shift change. Patient exhibited the following behavior Calm, Compliant, Cooperative. Brief assessment on rounds of vital signs, medication needs, lab studies, and pain. Treatment plan problems Altered thought process and fall risk. Intervention: Patient assessed and the following interventions initiated safety checks 15 Minute Checks Head to toe Assessment , Cognitive Assessment , Medications. Response: After interactions and interventions patient responded in the following manner, Calm , Compliant ,Cooperative. Continue to assess behaviors and condition will continue to monitor throughout the shift as needed. Patient educated on ADL's, and hand hygiene. Plan: Continue to monitor Master Treatment Plan for patient's progress toward short term goals of Decreased Agitation, Decreased Aggression, mcfp goals to return to previous living setting vs placement. Continue to assess patient for changes in above assessment. Monitor for medication needs, pain, and safety concerns. Hourly rounding performed to ensure safe environment.
[2017-09-18 16:34] VITALS: BP 133/57
--- NOTE | 2017-09-18 18:09 | NUR ---
Pt c/o back pain 5-01/05. PRN given. Will continue to monitor.
--- NOTE | 2017-09-18 19:50 | PDOC ---
Exam Note: Gagan Note: Please also refer to the separate dictated note~for this date of service dictated separately.~Patient seen individually. Discussed the patient with Nursing staff reviewed the chart.~Reviewed interim history and current functioning. Reviewed vital signs,~Labs/ Radiology~and current medications noted below. Continue current treatment with the changes noted in the dictated addendum note Assessment: Vital Signs: Vital Signs Date Time Temp Pulse Resp B/P (MAP) Pulse Ox O2 Delivery O2 Flow Rate FiO2 09/18/17 19:06 Nasal Cannula 3.0 09/18/17 16:34 98.2 86 20 133/57 (82) 94 I&O Intake and Output 09/18/17 07:00 Intake Total 1320 ml Balance 1320 ml Intake Oral 1320 ml # Voids 1 # Bowel Movements 3 Labs: Laboratory Tests Test 09/18/17 07:32 09/18/17 09:10 09/18/17 11:54 09/18/17 17:00 Glucose (Fingerstick) 148 mg/dL (70-99) H 172 mg/dL (70-99) H 116 mg/dL (70-99) H White Blood Count 14.8 x10^3/uL (4.0-11.0) H Red Blood Count 5.10 x10^6/uL (3.50-5.40) Hemoglobin 13.0 g/dL (12.0-15.5) Hematocrit 40.9 % (36.0-47.0) Mean Corpuscular Volume 80 fL (79-100) Mean Corpuscular Hemoglobin 25 pg (25-35) Mean Corpuscular Hemoglobin Concent 32 g/dL (31-37) Red Cell Distribution Width 14.9 % (11.5-14.5) H Platelet Count 213 x10^3/uL (140-400) Neutrophils (%) (Auto) 80 % (31-73) H Lymphocytes (%) (Auto) 11 % (24-48) L Monocytes (%) (Auto) 6 % (0-9) Eosinophils (%) (Auto) 2 % (0-3) Basophils (%) (Auto) 1 % (0-3) Neutrophils # (Auto) 11.8 x10^3uL (1.8-7.7) H Lymphocytes # (Auto) 1.7 x10^3/uL (1.0-4.8) Monocytes # (Auto) 0.9 x10^3/uL (0.0-1.1) Eosinophils # (Auto) 0.3 x10^3/uL (0.0-0.7) Basophils # (Auto) 0.1 x10^3/uL (0.0-0.2) Sodium Level 141 mmol/L (136-145) Potassium Level 4.1 mmol/L (3.5-5.1) Chloride Level 99 mmol/L (98-107) Carbon Dioxide Level 36 mmol/L (21-32) H Anion Gap 6 (6-14) Blood Urea Nitrogen 17 mg/dL (7-20) Creatinine 1.0 mg/dL (0.6-1.0) Estimated GFR (Cockcroft-Gault) 55.8 BUN/Creatinine Ratio 17 (6-20) Glucose Level 227 mg/dL (70-99) H Calcium Level 9.7 mg/dL (8.5-10.1) Total Bilirubin 0.6 mg/dL (0.2-1.0) Aspartate Amino Transferase (AST) 8 U/L (15-37) L Alanine Aminotransferase (ALT) 27 U/L (14-59) Alkaline Phosphatase 98 U/L (46-116) Total Protein 7.9 g/dL (6.4-8.2) Albumin 3.3 g/dL (3.4-5.0) L Albumin/Globulin Ratio 0.7 (1.0-1.7) L Valproic Acid Level 17 mcg/mL (50-100) L Valproic Acid Last Dose Date 09/17/17 Valproic Acid Last Dose Time 2100 Test 09/18/17 19:04 Glucose (Fingerstick) 128 mg/dL (70-99) H Current Medications: Meds: Current Medications Ciprofloxacin (Cipro) 500 mg 1X ONCE PO Last administered on 09/11/17at 21:31; Start 09/11/17 at 21:15; Stop 09/11/17 at 21:16; Status DC Acetaminophen (Tylenol) 650 mg PRN Q6HRS PRN PO PAIN / TEMP; Start 09/11/17 at 23:30 Multi-Ingredient Ointment (Analgesic Joaquin) 1 penelope PRN QID PRN TP MUSCLE PAIN; Start 09/11/17 at 23:30 Al Hydroxide/Mg Hydroxide (Mylanta Plus Xs) 15 ml PRN AFTMEALHC PRN PO DYSPEPSIA Last administered on 09/12/17 09:42; Start 09/11/17 at 23:30 Magnesium Hydroxide (Milk Of Magnesia) 2,400 mg PRN QHS PRN PO CONSTIPATION Last administered on 09/15/17at 20:54; Start 09/11/17 at 23:30 Citalopram Hydrobromide (CeleXA) 20 mg DAILY PO Last administered on 09/15/17at 07:51; Start 09/12/17 at 09:00; Stop 09/15/17 at 12:42; Status DC Rivastigmine (Exelon) 1 patch DAILY TD Last administered on 09/18/17at 09:01; Start 09/12/17 at 09:00 Venlafaxine HCl (Effexor) 75 mg BID PO Last administered on 09/18/17 09:03; Start 09/12/17 at 09:00 Melatonin 10 mg HS PO ; Start 09/12/17 at 21:00; Stop 09/12/17 at 21:00; Status DC Aspirin (Aspirin Enteric Coated) 81 mg DAILY PO Last administered on 09/18/17 09:03; Start 09/12/17 at 09:00 Bisacodyl (Dulcolax Supp) 10 mg PRN DAILY PRN RC CONSTIPATION; Start 09/11/17 at 23:45 Budesonide (Pulmicort) 0.5 mg BID IH Last administered on 09/18/17at 10:46; Start 09/12/17 at 09:00 Celecoxib (CeleBREX) 200 mg DAILY PO Last administered on 09/18/17at 09:03; Start 09/12/17 at 09:00 Doxycycline Hyclate (Vibra-Tab) 100 mg BID66 PO Last administered on 09/16/17 18:21; Start 09/12/17 at 06:00; Stop 09/17/17 at 05:59; Status DC Furosemide (Lasix) 40 mg BID92 PO Last administered on 09/18/17at 12:41; Start 09/12/17 at 09:00 Gabapentin (Neurontin) 100 mg TID PO Last administered on 09/18/17at 12:40; Start 09/12/17 at 09:00 Acetaminophen/ Hydrocodone Bitart (Lortab 7.5/325) 1 tab PRN Q4HRS PRN PO PAIN Last administered on 09/18/17at 18:04; Start 09/11/17 at 23:45 Acetaminophen/ Hydrocodone Bitart (Lortab 7.5/325) 1 tab PRN QID PRN PO PAIN; Start 09/11/17 at 23:45; Stop 09/15/17 at 17:56; Status DC Insulin Aspart (NovoLOG) 22 units TIDAC SQ Last administered on 09/18/17at 17:06 ; Start 09/12/17 at 07:30 Insulin Glargine (Lantus) 70 units BID SQ ; Start 09/12/17 at 09:00; Stop at 09:00; Status DC Albuterol/ Ipratropium (Duoneb) 3 ml RTQID NEB Last administered on 09/18/17at 15:58; Start 09/12/17 at 08:00 Metoclopramide HCl (Reglan) 2.5 mg TID PO Last administered on 09/12/17at 15:03 ; Start 09/12/17 at 09:00; Stop 09/12/17 at 19:21; Status DC Metoprolol Tartrate (Lopressor) 25 mg BID PO Last administered on 09/18/17at 09: 02; Start 09/12/17 at 09:00 Montelukast Sodium (Singulair) 10 mg HS PO Last administered on 09/17/17at 20:04 ; Start 09/12/17 at 21:00 Nitroglycerin (Nitrostat) 0.4 mg PRN Q5MIN PRN SL CHEST PAIN; Start 09/11/17 at 23:45 Pantoprazole Sodium (Protonix) 20 mg DAILYAC PO Last administered on 09/18/17at 09:02; Start 09/12/17 at 07:30 Polyethylene Glycol (miraLAX) 17 gm BID PO Last administered on 09/18/17at 09:01 ; Start 09/12/17 at 09:00 Pregabalin (Lyrica) 100 mg TID PO Last administered on 09/12/17at 08:35; Start 09/12/17 at 09:00; Stop 09/12/17 at 15:02; Status DC Spironolactone (Aldactone) 25 mg DAILY07 PO Last administered on 09/18/17at 05: 37; Start 09/12/17 at 07:00 Zolpidem Tartrate (Ambien) 5 mg QHS PO ; Start 09/12/17 at 21:00; Stop 09/12/17 at 21:00; Status DC Non-Formulary Medication 1.25 mg PRN PRN NEB SHORTNESS OF BREATH; Start at 23:45; Status UNV Atorvastatin Calcium (Lipitor) 40 mg HS PO Last administered on 09/17/17at 20:03 ; Start 09/12/17 at 21:00 Cetirizine HCl (ZyrTEC) 10 mg DAILY PO Last administered on 09/18/17at 09:01; Start 09/12/17 at 09:00 Al Hydroxide/Mg Hydroxide (Mylanta Plus Xs) 10 ml PRN AFTMEAL PRN PO DYSPEPSIA ; Start 09/11/17 at 23:45 Miconazole Nitrate (Monistat-Derm) 1 penelope BID TP Last administered on 09/13/17at 07:59; Start 09/12/17 at 09:00; Stop 09/13/17 at 09:03; Status DC Mupirocin (Bactroban) 1 penelope BID TP Last administered on 09/18/17at 11:00; Start 09/12/17 at 09:00 Non-Formulary Medication 2 each BID PO ; Start 09/12/17 at 09:00; Status UNV Fish Oil (Fish Oil) 2,000 mg BID PO Last administered on 09/18/17at 09:01; Start 09/12/17 at 09:00 Artificial Tears (Artificial Tears) 2 drop PRN QID PRN OU DRY EYE; Start at 07:15 Theophylline (Theophylline Extended Release) 200 mg DAILY PO Last administered on 09/18/17at 09:05; Start 09/12/17 at 09:00 Albuterol Sulfate (Ventolin) 2.5 mg PRN Q6HRS PRN NEB SHORTNESS OF BREATH; Start 09/12/17 at 00:30 Albuterol/ Ipratropium (Duoneb) 3 ml STK-MED ONCE .ROUTE ; Start 09/12/17 at 05: 17; Stop 09/12/17 at 05:18; Status DC Insulin Detemir (Levemir) 70 units BID SQ Last administered on 09/18/17at 09:09 ; Start 09/12/17 at 09:00 Melatonin 6 mg HS PO Last administered on 09/17/17at 20:02; Start 09/12/17 at 21 :00 Trazodone HCl (Desyrel) 100 mg QHS PO Last administered on 09/17/17at 20:03; Start 09/12/17 at 21:00 Trazodone HCl (Desyrel) 100 mg PRN QHS PRN PO insomnia ; Start 09/12/17 at 21: 00 Pregabalin (Lyrica) 100 mg TID PO Last administered on 09/18/17at 12:40; Start 09/12/17 at 14:00 Vitamin D (Vitamin D3) 50,000 unit WEEKLY PO ; Start 09/19/17 at 09:00 Promethazine HCl (Phenergan) 12.5 mg PRN Q4HRS PRN PO NAUSEA/VOMITING; Start at 19:00 Risperidone (RisperDAL) 0.5 mg QHS PO Last administered on 09/17/17at 20:04; Start 09/12/17 at 21:00 Nystatin (Nystop) 1 penelope BID TP Last administered on 09/18/17at 11:01; Start at 09:00 Lactobacillus Rhamnosus (Culturelle) 1 cap BID PO Last administered on at 09:03; Start 09/14/17 at 09:00 Divalproex Sodium (Depakote Sprinkles) 250 mg HS PO Last administered on at 20:03; Start 09/15/17 at 21:00; Stop 09/18/17 at 11:15; Status DC Cetirizine HCl (ZyrTEC) 10 mg DAILY PO ; Start 09/16/17 at 09:00; Status Cancel Divalproex Sodium (Depakote Er) 500 mg QHS PO ; Start 09/18/17 at 21:00 Active Scripts Active Reported Trazodone Hcl 100 Mg Tablet 100 Mg PO PRN QHS PRN Trazodone Hcl 100 Mg Tablet 100 Mg PO QHS Risperdal (Risperidone) 0.5 Mg Tablet 0.5 Mg PO HS Promethazine Hcl 12.5 Mg Tablet 12.5 Mg PO PRN Q4HRS PRN Artificial Tears (Polyvinyl Alcohol) 15 Ml Drops 2 Drop OU PRN QID PRN Nystatin 15 Gm Powder 1 Penelope TP BID Analgesic Joaquin (Methyl Salicylate/Menthol) 28 Gm Oint...g. 1 Penelope TP PRN QID PRN Milk Of Magnesia (Magnesium Hydroxide) 2,400 Mg/10 Ml Oral.susp 2,400 Mg PO PRN QHS PRN Culturelle Capsule (L. Rhamnosus GG/Inulin) 1 Each Cap.sprink 1 Each PO BID Mag-Al Plus Xs Suspension (Mag Hydrox/Al Hydrox/Simeth) 30 Ml Oral.susp 15 Ml PO PRN AFTMEALHC PRN Depakote Sprinkle (Divalproex Sodium) 125 Mg Cap.sprink 250 Mg PO HS Vitamin D (Cholecalciferol (Vitamin D3)) 50,000 Unit Capsule 50,000 Unit PO WEEKLY Zyrtec (Cetirizine Hcl) 10 Mg Tablet 10 Mg PO DAILY Albuterol Sulfate Neb Soln (Albuterol Sulfate) 2.5 Mg/3 Ml Vial.neb 2.5 Mg NEB PRN Q6HRS PRN Tylenol (Acetaminophen) 325 Mg Tablet 650 Mg PO PRN Q6HRS PRN Max Acetaminophen dose is 4000 mg in 24 hours from all sources for adults. Venlafaxine Hcl 75 Mg Tablet 75 Mg PO BID Naldo-24 (Theophylline Anhydrous) 200 Mg Cap.er.24h 200 Mg PO DAILY Pulmicort (Budesonide) 0.5 Mg/2 Ml Ampul.neb 0.5 Mg IH BID Pantoprazole Sodium 40 Mg Tablet.dr 20 Mg PO DAILYAC Novolog Flexpen (Insulin Aspart) 100 Unit/1 Ml Insuln.pen 22 Units SQ TIDAC NITROGLYCERIN SubLingual (Nitroglycerin) 0.4 Mg Tab.subl 0.4 Mg SL PRN Q5MIN PRN Montelukast Sodium Tablet (Montelukast Sodium) 10 Mg Tablet 10 Mg PO HS Miralax (Polyethylene Glycol 3350) 17 Gm Powd.pack 17 Gm PO BID Metoprolol Tartrate 25 Mg Tablet 25 Mg PO BID Melatonin 3 Mg Tablet 6 Mg PO HS Lyrica (Pregabalin) 100 Mg Capsule 100 Mg PO TID Lantus Solostar (Insulin Glargine,Hum.rec.anlog) 100 Unit/1 Ml Insuln.pen 70 Units SQ BID Gabapentin 100 Mg Capsule 100 Mg PO TID Furosemide 40 Mg Tablet 40 Mg PO BID92 Fish Oil 1,000 Mg Softgel ([place]-3/Dha/Epa/Fish Oil) 1 Each Capsule 2 Each PO BID EXELON 9.5mg/24hr (Rivastigmine) 1 Each Patch.td24 1 Patch TD Duoneb 0.5-3(2.5) Mg/3 Ml (Albuterol/Ipratropium) 3 Ml Ampul.neb 3 Ml NEB QID Dulcolax (Bisacodyl) 10 Mg Supp.rect 10 Mg RC PRN DAILY PRN Celebrex (Celecoxib) 200 Mg Capsule 200 Mg PO DAILY Bactroban Nasal (Mupirocin Calcium) 1 Gm Oint...g. 1 Penelope NS BID Atorvastatin Calcium 40 Mg Tablet 40 Mg PO HS Aspirin Ec (Aspirin) 81 Mg Tablet. 81 Mg PO DAILY Aldactone (Spironolactone) 25 Mg Tablet 25 Mg PO DAILY07 I have reviewed the current psychotropics carefully including drug interactions. Risk benefit ratio favors no change other than as noted in my dictated progress note. Diagnosis: Problems: (1) MDD (major depressive disorder) (2) Urinary tract infection (3) Renal insufficiency (4) Medical clearance for psychiatric admission (5) Bipolar affective disorder, mixed (6) Anxiety disorder (7) Major depressive disorder, recurrent episode ROSA GRAMAJO MD Sep 18, 2017 19:49
[2017-09-18] MEDS: ATORVASTATIN CALCIUM 20 MG TABLET PO SCH (20:57)
[2017-09-18] MEDS: risperiDONE 0.5 MG TABLET. PO SCH (20:57)
[2017-09-18] MEDS: MONTELUKAST 10 MG TABLET. PO SCH (20:57)
[2017-09-18] MEDS: traZODone 100 MG TABLET. PO SCH (20:57)
[2017-09-18] MEDS: MELATONIN 3 MG TABLET PO SCH (20:58)
[2017-09-18] MEDS: DIVALPROEX ER 500 MG TAB.ER.24H PO SCH (21:01)
--- NOTE | 2017-09-18 21:02 | PN ---
DATE: 09/17/2017 This late entry 09/17/2017 covers elements not covered in my initial note 09/17/2017. Met with the patient the evening of 09/17/2017. Overall, the patient remains somewhat anxious, but otherwise appropriate. REVIEW OF SYSTEMS: Ambulation impaired with walker. No CV, , pulmonary, eye system symptoms on review. She remains on oxygen supplements. MENTAL STATUS EXAM: Reasonably oriented. Speech is coherent, has some latency. Abstraction fair, computation impaired, language function intact, attention span short. Mood and affect, some improvement in lability. LABORATORY DATA: Valproic acid will be checked on 09/18/2017. In fact, at the time of this dictation, valproic acid level is 17. IMPRESSION: Bipolar 1 disorder, mixed PLAN: Increase Depakote starting from 250 at bedtime to 500 mg ER at bedtime. Check CBC, CMP, valproic acid level in 3 days. Continue rest unchanged. ROSA GRAMAJO MD DR: NITESH/anika JOB#: [id number] / [id number]
--- NOTE | 2017-09-18 21:38 | NUR ---
Behavior Intervention Response and Plan: BIRP Note: Behavior: Assumed Care of patient, patient located in Day Room at shift change. Patient exhibited the following behavior , Interactive, Social. Brief assessment on rounds of vital signs, medication needs, lab studies, and pain. Treatment plan problems .1&2 Intervention: Patient assessed and the following interventions initiated safety checks 15 Minute Checks Cognitive Assessment , Head to toe Assessment , Medications. Response: After interactions and interventions patient responded in the following manner, Appropriate , Compliant ,Cooperative. Continue to assess behaviors and condition will continue to monitor throughout the shift as needed. Patient educated on ADL's, and hand hygiene. 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 Continue to assess patient for changes in above assessment. Monitor for medication needs, pain, and safety concerns. Hourly rounding performed to ensure safe environment.
[2017-09-19] MEDS: SPIRONOLACTONE 25 MG TABLET PO SCH (05:55)
[2017-09-19] MEDS: IPRATRPIUM/ALBUTEROL 0.5/2.5MG 3 ML NEBU. NEB SCH ×4 (05:59→21:46)
[2017-09-19 06:17] VITALS: BP 130/62
[2017-09-19] MEDS ORDERED: CHOLECALCIFEROL (VITAMIN D3) 50,000 UNIT CAPSULE PO SCH (09:00)
[2017-09-19] MEDS: INSULIN DETEMIR 300 UNITS/3 ML INSULN.PEN. SQ SCH ×2 (09:40→20:11)
[2017-09-19] MEDS: INSULIN ASPART 300 UNITS/3 ML INSULN.PEN SQ SCH ×3 (09:40→17:55)
[2017-09-19] MEDS: POLYETHYLENE GLYCOL 3350 17 GM PACKET. PO SCH ×2 (09:41→20:05)
[2017-09-19] MEDS: RIVASTIGMINE 9.5MG PATCH. TD SCH (09:41)
[2017-09-19] MEDS: LACTOBACILLUS RHAMNOSUS GG 1 CAPSULE. PO SCH ×2 (09:41→20:05)
[2017-09-19] MEDS: METOPROLOL TART IMMED RELEASE 25 MG TABLET PO SCH ×2 (09:42→20:06)
[2017-09-19] MEDS: PANTOPRAZOLE 40 MG TABLET. PO SCH (09:42)
[2017-09-19] MEDS: CETIRIZINE HCL 10 MG TABLET PO SCH (09:42)
[2017-09-19] MEDS: OMEGA-3 FATTY ACIDS/FISH OIL 1,000 MG CAPSULE. PO SCH ×2 (09:42→20:05)
[2017-09-19] MEDS: VENLAFAXINE 75 MG TABLET. PO SCH ×2 (09:42→20:06)
[2017-09-19] MEDS: FUROSEMIDE 40 MG TABLET PO SCH ×2 (09:42→13:06)
[2017-09-19] MEDS: CELECOXIB 200 MG CAPSULE PO SCH (09:43)
[2017-09-19] MEDS: ASPIRIN ENTERIC COATED 81 MG TABLET.DR. PO SCH (09:43)
[2017-09-19] MEDS: GABAPENTIN 100 MG CAPSULE. PO SCH ×3 (09:43→20:05)
[2017-09-19] MEDS: MUPIROCIN 2% TOPICAL OINTMENT 22GM TUBE. TP SCH ×2 (09:46→20:11)
[2017-09-19] MEDS: THEOPHYLLINE ANHYDROUS 400 MG TABLET.ER. PO SCH (09:46)
[2017-09-19] MEDS: NYSTATIN TOPICAL POWDER 15GM BOTTLE. TP SCH ×2 (09:46→20:11)
[2017-09-19] MEDS: PREGABALIN 50 MG CAPSULE PO SCH ×3 (09:46→20:08)
[2017-09-19] MEDS: BUDESONIDE 0.5 MG/2 ML NEBU IH SCH ×2 (10:30→21:46)
--- NOTE | 2017-09-19 13:18 | NUR ---
Behavior Intervention Response and Plan: BIRP Note: Behavior: Assumed Care of patient, patient located in Day Room at shift change. Patient exhibited the following behavior Calm, Interactive, Compliant. Brief assessment on rounds of vital signs, medication needs, lab studies, and pain. Treatment plan problems 1 and 2. Intervention: Patient assessed and the following interventions initiated safety checks 15 Minute Checks Cognitive Assessment , Head to toe Assessment , Medications. Response: After interactions and interventions patient responded in the following manner, Calm , Interactive ,Social. Continue to assess behaviors and condition will continue to monitor throughout the shift as needed. Patient educated on ADL's, and hand hygiene. Plan: Continue to monitor Master Treatment Plan for patient's progress toward short term goals of Decreased Anxiety, Improved Mood, senior living goals to return to previous living setting vs placement. Continue to assess patient for changes in above assessment. Monitor for medication needs, pain, and safety concerns. Hourly rounding performed to ensure safe environment.
--- NOTE | 2017-09-19 16:00 | NUR ---
[facility] Social Work Discharge Planning Form Patient Name VALERIA YU Admit Date: 09/11/17 DISCHARGE PLAN Discharge Destination: [facility] Transportation: 1:OO pm Special Instructions/Notes: DISCHARGE TO FACILITY Facility: [facility] Address: [address] [place] [address] Contact Name: KODY LYN, Other:Andrew PCP: at facility Psychiatrist: at facility Psychiatrist/Mental Health Follow Up at facility Primary Care Follow Up at facility
[2017-09-19 16:20] VITALS: BP 109/57
--- NOTE | 2017-09-19 19:44 | PDOC ---
Exam Note: Gagan Note: Please also refer to the separate dictated note~for this date of service dictated separately.~Patient seen individually. Discussed the patient with Nursing staff reviewed the chart.~Reviewed interim history and current functioning. Reviewed vital signs,~Labs/ Radiology~and current medications noted below. Continue current treatment with the changes noted in the dictated addendum note Assessment: Vital Signs: Vital Signs Date Time Temp Pulse Resp B/P (MAP) Pulse Ox O2 Delivery O2 Flow Rate FiO2 09/19/17 16:32 100 Nasal Cannula 3.0 09/19/17 16:20 97.4 82 18 109/57 (74) I&O Intake and Output 09/19/17 07:00 Intake Total 1200 ml Balance 1200 ml Intake Oral 1200 ml # Bowel Movements 2 Labs: Laboratory Tests Test 09/19/17 07:23 09/19/17 11:28 09/19/17 17:08 09/19/17 19:05 Glucose (Fingerstick) 152 mg/dL (70-99) H 213 mg/dL (70-99) H 150 mg/dL (70-99) H 171 mg/dL (70-99) H Current Medications: Meds: Current Medications Ciprofloxacin (Cipro) 500 mg 1X ONCE PO Last administered on 09/11/17at 21:31; Start 09/11/17 at 21:15; Stop 09/11/17 at 21:16; Status DC Acetaminophen (Tylenol) 650 mg PRN Q6HRS PRN PO PAIN / TEMP; Start 09/11/17 at 23:30 Multi-Ingredient Ointment (Analgesic Oxford) 1 penelope PRN QID PRN TP MUSCLE PAIN; Start 09/11/17 at 23:30 Al Hydroxide/Mg Hydroxide (Mylanta Plus Xs) 15 ml PRN AFTMEALHC PRN PO DYSPEPSIA Last administered on 09/12/17at 09:42; Start 09/11/17 at 23:30 Magnesium Hydroxide (Milk Of Magnesia) 2,400 mg PRN QHS PRN PO CONSTIPATION Last administered on 09/15/17at 20:54; Start 09/11/17 at 23:30 Citalopram Hydrobromide (CeleXA) 20 mg DAILY PO Last administered on 09/15/17at 07:51; Start 09/12/17 at 09:00; Stop 09/15/17 at 12:42; Status DC Rivastigmine (Exelon) 1 patch DAILY TD Last administered on 09/19/17 09:41; Start 09/12/17 at 09:00 Venlafaxine HCl (Effexor) 75 mg BID PO Last administered on 09/19/17at 09:42; Start 09/12/17 at 09:00 Melatonin 10 mg HS PO ; Start 09/12/17 at 21:00; Stop 09/12/17 at 21:00; Status DC Aspirin (Aspirin Enteric Coated) 81 mg DAILY PO Last administered on 09/19/17 09:43; Start 09/12/17 at 09:00 Bisacodyl (Dulcolax Supp) 10 mg PRN DAILY PRN RC CONSTIPATION; Start 09/11/17 at 23:45 Budesonide (Pulmicort) 0.5 mg BID IH Last administered on 09/19/17at 10:30; Start 09/12/17 at 09:00 Celecoxib (CeleBREX) 200 mg DAILY PO Last administered on 09/19/17at 09:43; Start 09/12/17 at 09:00 Doxycycline Hyclate (Vibra-Tab) 100 mg BID66 PO Last administered on 09/16/17 18:21; Start 09/12/17 at 06:00; Stop 09/17/17 at 05:59; Status DC Furosemide (Lasix) 40 mg BID92 PO Last administered on 09/19/17 13:06; Start 09/12/17 at 09:00 Gabapentin (Neurontin) 100 mg TID PO Last administered on 09/19/17at 13:06; Start 09/12/17 at 09:00 Acetaminophen/ Hydrocodone Bitart (Lortab 7.5/325) 1 tab PRN Q4HRS PRN PO PAIN Last administered on 09/18/17at 18:04; Start 09/11/17 at 23:45 Acetaminophen/ Hydrocodone Bitart (Lortab 7.5/325) 1 tab PRN QID PRN PO PAIN; Start 09/11/17 at 23:45; Stop 09/15/17 at 17:56; Status DC Insulin Aspart (NovoLOG) 22 units TIDAC SQ Last administered on 09/19/17at 17:55 ; Start 09/12/17 at 07:30 Insulin Glargine (Lantus) 70 units BID SQ ; Start 09/12/17 at 09:00; Stop at 09:00; Status DC Albuterol/ Ipratropium (Duoneb) 3 ml RTQID NEB Last administered on 09/19/17at 16:31; Start 09/12/17 at 08:00 Metoclopramide HCl (Reglan) 2.5 mg TID PO Last administered on 09/12/17at 15:03 ; Start 09/12/17 at 09:00; Stop 09/12/17 at 19:21; Status DC Metoprolol Tartrate (Lopressor) 25 mg BID PO Last administered on 09/19/17at 09: 42; Start 09/12/17 at 09:00 Montelukast Sodium (Singulair) 10 mg HS PO Last administered on 09/18/17at 20:57 ; Start 09/12/17 at 21:00 Nitroglycerin (Nitrostat) 0.4 mg PRN Q5MIN PRN SL CHEST PAIN; Start 09/11/17 at 23:45 Pantoprazole Sodium (Protonix) 20 mg DAILYAC PO Last administered on 09/19/17at 09:42; Start 09/12/17 at 07:30 Polyethylene Glycol (miraLAX) 17 gm BID PO Last administered on 09/19/17at 09:41 ; Start 09/12/17 at 09:00 Pregabalin (Lyrica) 100 mg TID PO Last administered on 09/12/17at 08:35; Start 09/12/17 at 09:00; Stop 09/12/17 at 15:02; Status DC Spironolactone (Aldactone) 25 mg DAILY07 PO Last administered on 09/19/17at 05: 55; Start 09/12/17 at 07:00 Zolpidem Tartrate (Ambien) 5 mg QHS PO ; Start 09/12/17 at 21:00; Stop 09/12/17 at 21:00; Status DC Non-Formulary Medication 1.25 mg PRN PRN NEB SHORTNESS OF BREATH; Start at 23:45; Status UNV Atorvastatin Calcium (Lipitor) 40 mg HS PO Last administered on 09/18/17at 20:57 ; Start 09/12/17 at 21:00 Cetirizine HCl (ZyrTEC) 10 mg DAILY PO Last administered on 09/19/17at 09:42; Start 09/12/17 at 09:00 Al Hydroxide/Mg Hydroxide (Mylanta Plus Xs) 10 ml PRN AFTMEAL PRN PO DYSPEPSIA ; Start 09/11/17 at 23:45 Miconazole Nitrate (Monistat-Derm) 1 penelope BID TP Last administered on 09/13/17at 07:59; Start 09/12/17 at 09:00; Stop 09/13/17 at 09:03; Status DC Mupirocin (Bactroban) 1 penelope BID TP Last administered on 09/19/17at 09:46; Start 09/12/17 at 09:00 Non-Formulary Medication 2 each BID PO ; Start 09/12/17 at 09:00; Status UNV Fish Oil (Fish Oil) 2,000 mg BID PO Last administered on 09/19/17at 09:42; Start 09/12/17 at 09:00 Artificial Tears (Artificial Tears) 2 drop PRN QID PRN OU DRY EYE; Start at 07:15 Theophylline (Theophylline Extended Release) 200 mg DAILY PO Last administered on 09/19/17at 09:46; Start 09/12/17 at 09:00 Albuterol Sulfate (Ventolin) 2.5 mg PRN Q6HRS PRN NEB SHORTNESS OF BREATH; Start 09/12/17 at 00:30 Albuterol/ Ipratropium (Duoneb) 3 ml STK-MED ONCE .ROUTE ; Start 09/12/17 at 05: 17; Stop 09/12/17 at 05:18; Status DC Insulin Detemir (Levemir) 70 units BID SQ Last administered on 09/19/17at 09:40 ; Start 09/12/17 at 09:00 Melatonin 6 mg HS PO Last administered on 09/18/17at 20:58; Start 09/12/17 at 21 :00 Trazodone HCl (Desyrel) 100 mg QHS PO Last administered on 09/18/17at 20:57; Start 09/12/17 at 21:00 Trazodone HCl (Desyrel) 100 mg PRN QHS PRN PO insomnia ; Start 09/12/17 at 21: 00 Pregabalin (Lyrica) 100 mg TID PO Last administered on 09/19/17at 13:06; Start 09/12/17 at 14:00 Vitamin D (Vitamin D3) 50,000 unit WEEKLY PO Last administered on 09/19/17at 09: 46; Start 09/19/17 at 09:00 Promethazine HCl (Phenergan) 12.5 mg PRN Q4HRS PRN PO NAUSEA/VOMITING; Start at 19:00 Risperidone (RisperDAL) 0.5 mg QHS PO Last administered on 09/18/17at 20:57; Start 09/12/17 at 21:00 Nystatin (Nystop) 1 penelope BID TP Last administered on 09/19/17at 09:46; Start at 09:00 Lactobacillus Rhamnosus (Culturelle) 1 cap BID PO Last administered on at 09:41; Start 09/14/17 at 09:00 Divalproex Sodium (Depakote Sprinkles) 250 mg HS PO Last administered on at 20:03; Start 09/15/17 at 21:00; Stop 09/18/17 at 11:15; Status DC Cetirizine HCl (ZyrTEC) 10 mg DAILY PO ; Start 09/16/17 at 09:00; Status Cancel Divalproex Sodium (Depakote Er) 500 mg QHS PO Last administered on 09/18/17at 21 :01; Start 09/18/17 at 21:00 Active Scripts Active Reported Trazodone Hcl 100 Mg Tablet 100 Mg PO PRN QHS PRN Trazodone Hcl 100 Mg Tablet 100 Mg PO QHS Risperdal (Risperidone) 0.5 Mg Tablet 0.5 Mg PO HS Promethazine Hcl 12.5 Mg Tablet 12.5 Mg PO PRN Q4HRS PRN Artificial Tears (Polyvinyl Alcohol) 15 Ml Drops 2 Drop OU PRN QID PRN Nystatin 15 Gm Powder 1 Penelope TP BID Analgesic Oxford (Methyl Salicylate/Menthol) 28 Gm Oint...g. 1 Penelope TP PRN QID PRN Milk Of Magnesia (Magnesium Hydroxide) 2,400 Mg/10 Ml Oral.susp 2,400 Mg PO PRN QHS PRN Culturelle Capsule (L. Rhamnosus GG/Inulin) 1 Each Cap.sprink 1 Each PO BID Mag-Al Plus Xs Suspension (Mag Hydrox/Al Hydrox/Simeth) 30 Ml Oral.susp 15 Ml PO PRN AFTMEALHC PRN Depakote Sprinkle (Divalproex Sodium) 125 Mg Cap.sprink 250 Mg PO HS Vitamin D (Cholecalciferol (Vitamin D3)) 50,000 Unit Capsule 50,000 Unit PO WEEKLY Zyrtec (Cetirizine Hcl) 10 Mg Tablet 10 Mg PO DAILY Albuterol Sulfate Neb Soln (Albuterol Sulfate) 2.5 Mg/3 Ml Vial.neb 2.5 Mg NEB PRN Q6HRS PRN Tylenol (Acetaminophen) 325 Mg Tablet 650 Mg PO PRN Q6HRS PRN Max Acetaminophen dose is 4000 mg in 24 hours from all sources for adults. Venlafaxine Hcl 75 Mg Tablet 75 Mg PO BID Naldo-24 (Theophylline Anhydrous) 200 Mg Cap.er.24h 200 Mg PO DAILY Pulmicort (Budesonide) 0.5 Mg/2 Ml Ampul.neb 0.5 Mg IH BID Pantoprazole Sodium 40 Mg Tablet.dr 20 Mg PO DAILYAC Novolog Flexpen (Insulin Aspart) 100 Unit/1 Ml Insuln.pen 22 Units SQ TIDAC NITROGLYCERIN SubLingual (Nitroglycerin) 0.4 Mg Tab.subl 0.4 Mg SL PRN Q5MIN PRN Montelukast Sodium Tablet (Montelukast Sodium) 10 Mg Tablet 10 Mg PO HS Miralax (Polyethylene Glycol 3350) 17 Gm Powd.pack 17 Gm PO BID Metoprolol Tartrate 25 Mg Tablet 25 Mg PO BID Melatonin 3 Mg Tablet 6 Mg PO HS Lyrica (Pregabalin) 100 Mg Capsule 100 Mg PO TID Lantus Solostar (Insulin Glargine,Hum.rec.anlog) 100 Unit/1 Ml Insuln.pen 70 Units SQ BID Gabapentin 100 Mg Capsule 100 Mg PO TID Furosemide 40 Mg Tablet 40 Mg PO BID92 Fish Oil 1,000 Mg Softgel (Climax-3/Dha/Epa/Fish Oil) 1 Each Capsule 2 Each PO BID EXELON 9.5mg/24hr (Rivastigmine) 1 Each Patch.td24 1 Patch TD Duoneb 0.5-3(2.5) Mg/3 Ml (Albuterol/Ipratropium) 3 Ml Ampul.neb 3 Ml NEB QID Dulcolax (Bisacodyl) 10 Mg Supp.rect 10 Mg RC PRN DAILY PRN Celebrex (Celecoxib) 200 Mg Capsule 200 Mg PO DAILY Bactroban Nasal (Mupirocin Calcium) 1 Gm Oint...g. 1 Penelope NS BID Atorvastatin Calcium 40 Mg Tablet 40 Mg PO HS Aspirin Ec (Aspirin) 81 Mg Tablet.dr 81 Mg PO DAILY Aldactone (Spironolactone) 25 Mg Tablet 25 Mg PO DAILY07 I have reviewed the current psychotropics carefully including drug interactions. Risk benefit ratio favors no change other than as noted in my dictated progress note. Diagnosis: Problems: (1) MDD (major depressive disorder) (2) Urinary tract infection (3) Renal insufficiency (4) Medical clearance for psychiatric admission (5) Bipolar affective disorder, mixed (6) Anxiety disorder (7) Major depressive disorder, recurrent episode ROSA GRAMAJO MD Sep 19, 2017 19:44
[2017-09-19] MEDS: traZODone 100 MG TABLET. PO SCH (20:05)
[2017-09-19] MEDS: DIVALPROEX ER 500 MG TAB.ER.24H PO SCH (20:06)
[2017-09-19] MEDS: risperiDONE 0.5 MG TABLET. PO SCH (20:06)
[2017-09-19] MEDS: MONTELUKAST 10 MG TABLET. PO SCH (20:06)
[2017-09-19] MEDS: MELATONIN 3 MG TABLET PO SCH (20:06)
[2017-09-19] MEDS: ATORVASTATIN CALCIUM 20 MG TABLET PO SCH (20:06)
--- NOTE | 2017-09-20 00:24 | PN ---
DATE: 09/18/2017 This late entry 09/18/2017 covers elements not covered in my initial note 09/18/2017. Overall, the patient has been more cooperative, less labile, still a little grandiose at times, but not threatening. REVIEW OF SYSTEMS: Ambulation impaired with walker, some shortness of breath, on oxygen supplements. No CV, , GI system symptoms on review. MENTAL STATUS EXAM: Reasonably oriented. Speech is coherent, pleasant, verbal. Abstraction fair, computation impaired, language function intact. Mood and affect, lability is improved. LABORATORY DATA: Valproic acid level is 17. Depakote has since been increased. Repeat labs level awaited. Continue rest of the psychotropics unchanged for now mentioned in my initial note. MAN Regina GRAMAJO MD DR: NITESH/anika JOB#: [id number] / [id number]
[2017-09-20] MEDS ORDERED: DIVA500T4 PO (03:38)
[2017-09-20] MEDS ORDERED: MAGN400O7 PO (03:45)
[2017-09-20] MEDS ORDERED: LORA10TA3 PO (03:53)
[2017-09-20] MEDS ORDERED: DIVA125C PO (04:01)
[2017-09-20] MEDS ORDERED: MAG360OR24 PO (04:01)
[2017-09-20] MEDS ORDERED: ALBU1.25 NEB (04:01)
[2017-09-20] MEDS ORDERED: OMEG1CAP30 PO (04:01)
[2017-09-20] MEDS ORDERED: PROM25AM6 IJ (04:01)
[2017-09-20] MEDS ORDERED: HYDR-2762 PO (04:01)
[2017-09-20] MEDS ORDERED: MAGN2400 PO (04:01)
[2017-09-20] MEDS: IPRATRPIUM/ALBUTEROL 0.5/2.5MG 3 ML NEBU. NEB SCH ×2 (05:57→10:30)
[2017-09-20 06:10] VITALS: BP 130/74
[2017-09-20] MEDS: SPIRONOLACTONE 25 MG TABLET PO SCH (06:14)
--- NOTE | 2017-09-20 07:31 | NUR ---
SW called Insurance provided information as well as SW contact regarding discharge information.
--- NOTE | 2017-09-20 07:32 | NUR ---
KODY completed review on the , pt was authed for the and . with Review on the . Addendum: 09/20/17 at 0733 by KEVIN GATES late entry for 09/18/17
[2017-09-20] MEDS: MUPIROCIN 2% TOPICAL OINTMENT 22GM TUBE. TP SCH (09:44)
[2017-09-20] MEDS: NYSTATIN TOPICAL POWDER 15GM BOTTLE. TP SCH (09:44)
[2017-09-20] MEDS: POLYETHYLENE GLYCOL 3350 17 GM PACKET. PO SCH (09:44)
[2017-09-20] MEDS: RIVASTIGMINE 9.5MG PATCH. TD SCH (09:45)
[2017-09-20 09:46] VITALS: BP 130/74
[2017-09-20] MEDS: CETIRIZINE HCL 10 MG TABLET PO SCH (09:46)
[2017-09-20] MEDS: FUROSEMIDE 40 MG TABLET PO SCH ×2 (09:46→12:42)
[2017-09-20] MEDS: LACTOBACILLUS RHAMNOSUS GG 1 CAPSULE. PO SCH (09:46)
[2017-09-20] MEDS: METOPROLOL TART IMMED RELEASE 25 MG TABLET PO SCH (09:46)
[2017-09-20] MEDS: OMEGA-3 FATTY ACIDS/FISH OIL 1,000 MG CAPSULE. PO SCH (09:46)
[2017-09-20] MEDS: CELECOXIB 200 MG CAPSULE PO SCH (09:46)
[2017-09-20] MEDS: VENLAFAXINE 75 MG TABLET. PO SCH (09:46)
[2017-09-20] MEDS: GABAPENTIN 100 MG CAPSULE. PO SCH ×2 (09:46→12:42)
[2017-09-20] MEDS: ASPIRIN ENTERIC COATED 81 MG TABLET.DR. PO SCH (09:47)
[2017-09-20] MEDS: PANTOPRAZOLE 40 MG TABLET. PO SCH (09:47)
[2017-09-20] MEDS: PREGABALIN 50 MG CAPSULE PO SCH ×2 (09:56→12:42)
[2017-09-20] MEDS: THEOPHYLLINE ANHYDROUS 400 MG TABLET.ER. PO SCH (09:56)
[2017-09-20] MEDS: INSULIN DETEMIR 300 UNITS/3 ML INSULN.PEN. SQ SCH (10:06)
[2017-09-20] MEDS: INSULIN ASPART 300 UNITS/3 ML INSULN.PEN SQ SCH ×2 (10:07→12:42)
--- NOTE | 2017-09-20 10:26 | NUR ---
Behavior Intervention Response and Plan: BIRP Note: Behavior: Assumed Care of patient, patient located in Day Room at shift change. Patient exhibited the following behavior Interactive, Calm, Able to Focus on Task. Brief assessment on rounds of vital signs, medication needs, lab studies, and pain. Treatment plan problems 1 and 2. Intervention: Patient assessed and the following interventions initiated safety checks 15 Minute Checks Cognitive Assessment , Head to toe Assessment , Medications. Response: After interactions and interventions patient responded in the following manner, Calm , Interactive ,Compliant. Continue to assess behaviors and condition will continue to monitor throughout the shift as needed. Patient educated on ADL's, and hand hygiene. Plan: Continue to monitor Master Treatment Plan for patient's progress toward short term goals of Improved Mood, Decreased Anxiety, buttermaker continuous churn goals to return to previous living setting vs placement. Continue to assess patient for changes in above assessment. Monitor for medication needs, pain, and safety concerns. Hourly rounding performed to ensure safe environment.
[2017-09-20] MEDS: BUDESONIDE 0.5 MG/2 ML NEBU IH SCH (10:30)
--- NOTE | 2017-09-20 12:43 | NUR ---
patient given 1400 medications (gabapentin, lyrica and lasix) prior to 1300 discharge. Will advise usp in report that she has taken them.
--- NOTE | 2017-09-20 13:02 | NUR ---
patient picked up by transportation at 1302. Discharging to [facility].
--- NOTE | 2017-09-20 13:03 | NUR ---
Transition Record was faxed to follow-up provider with the following elements: Reason for admission, procedures, tests, principal diagnosis, pending studies, patient instructions, 18/02 contact information for unit, phone number to obtain pending test results, plan for follow-up care, physician follow-up, advanced directive information, and medication list with dose, duration and instructions. This information was included in the following documents: History and physical, lab results, study results, progress notes, social work planning form, DC instruction form, patient visit summary, and medication reconciliation form. Date & time record faxed: 09/20 [id number] Record faxed to: Juan Coyne Record discussed with/ report given to: Ronnell
--- NOTE | 2017-09-20 19:22 | PDOC ---
Exam Note: Gagan Note: Please also refer to the separate dictated note~for this date of service dictated separately.~Patient seen individually. Discussed the patient with Nursing staff reviewed the chart.~Reviewed interim history and current functioning. Reviewed vital signs,~Labs/ Radiology~and current medications noted below. Continue current treatment with the changes noted in the dictated addendum note Assessment: Vital Signs: Vital Signs Date Time Temp Pulse Resp B/P (MAP) Pulse Ox O2 Delivery O2 Flow Rate FiO2 09/20/17 10:32 98 Nasal Cannula 3.0 09/20/17 09:46 87 130/74 09/20/17 06:10 97.9 24 I&O Intake and Output 09/20/17 07:00 Intake Total 1440 ml Balance 1440 ml Intake Oral 1440 ml Labs: Laboratory Tests Test 09/20/17 07:23 09/20/17 11:42 Glucose (Fingerstick) 212 mg/dL (70-99) H 123 mg/dL (70-99) H Current Medications: Meds: Current Medications Ciprofloxacin (Cipro) 500 mg 1X ONCE PO Last administered on 09/11/17at 21:31; Start 09/11/17 at 21:15; Stop 09/11/17 at 21:16; Status DC Acetaminophen (Tylenol) 650 mg PRN Q6HRS PRN PO PAIN / TEMP; Start 09/11/17 at 23:30; Stop 09/20/17 at 13:09; Status DC Multi-Ingredient Ointment (Analgesic [place]) 1 penelope PRN QID PRN TP MUSCLE PAIN; Start 09/11/17 at 23:30; Stop 09/20/17 at 13:09; Status DC Al Hydroxide/Mg Hydroxide (Mylanta Plus Xs) 15 ml PRN AFTMEALHC PRN PO DYSPEPSIA Last administered on 09/12/17at 09:42; Start 09/11/17 at 23:30; Stop at 13:09; Status DC Magnesium Hydroxide (Milk Of Magnesia) 2,400 mg PRN QHS PRN PO CONSTIPATION Last administered on 09/15/17at 20:54; Start 09/11/17 at 23:30; Stop 09/20/17 at 13:09; Status DC Citalopram Hydrobromide (CeleXA) 20 mg DAILY PO Last administered on 09/15/17at 07:51; Start 09/12/17 at 09:00; Stop 09/15/17 at 12:42; Status DC Rivastigmine (Exelon) 1 patch DAILY TD Last administered on 09/20/17at 09:45; Start 09/12/17 at 09:00; Stop 09/20/17 at 13:09; Status DC Venlafaxine HCl (Effexor) 75 mg BID PO Last administered on 09/20/17at 09:46; Start 09/12/17 at 09:00; Stop 09/20/17 at 13:09; Status DC Melatonin 10 mg HS PO ; Start 09/12/17 at 21:00; Stop 09/12/17 at 21:00; Status DC Aspirin (Aspirin Enteric Coated) 81 mg DAILY PO Last administered on 09/20/17at 09:47; Start 09/12/17 at 09:00; Stop 09/20/17 at 13:09; Status DC Bisacodyl (Dulcolax Supp) 10 mg PRN DAILY PRN RC CONSTIPATION; Start 09/11/17 at 23:45; Stop 09/20/17 at 13:09; Status DC Budesonide (Pulmicort) 0.5 mg BID IH Last administered on 09/20/17at 10:30; Start 09/12/17 at 09:00; Stop 09/20/17 at 13:09; Status DC Celecoxib (CeleBREX) 200 mg DAILY PO Last administered on 09/20/17at 09:46; Start 09/12/17 at 09:00; Stop 09/20/17 at 13:09; Status DC Doxycycline Hyclate (Vibra-Tab) 100 mg BID66 PO Last administered on 09/16/17at 18:21; Start 09/12/17 at 06:00; Stop 09/17/17 at 05:59; Status DC Furosemide (Lasix) 40 mg BID92 PO Last administered on 09/20/17at 12:42; Start 09/12/17 at 09:00; Stop 09/20/17 at 13:09; Status DC Gabapentin (Neurontin) 100 mg TID PO Last administered on 09/20/17at 12:42; Start 09/12/17 at 09:00; Stop 09/20/17 at 13:09; Status DC Acetaminophen/ Hydrocodone Bitart (Lortab 7.5/325) 1 tab PRN Q4HRS PRN PO PAIN Last administered on 09/18/17at 18:04; Start 09/11/17 at 23:45; Stop 09/20/17 at 13:09; Status DC Acetaminophen/ Hydrocodone Bitart (Lortab 7.5/325) 1 tab PRN QID PRN PO PAIN; Start 09/11/17 at 23:45; Stop 09/15/17 at 17:56; Status DC Insulin Aspart (NovoLOG) 22 units TIDAC SQ Last administered on 09/20/17at 12:42 ; Start 09/12/17 at 07:30; Stop 09/20/17 at 13:09; Status DC Insulin Glargine (Lantus) 70 units BID SQ ; Start 09/12/17 at 09:00; Stop at 09:00; Status DC Albuterol/ Ipratropium (Duoneb) 3 ml RTQID NEB Last administered on 09/20/17at 10:30; Start 09/12/17 at 08:00; Stop 09/20/17 at 13:09; Status DC Metoclopramide HCl (Reglan) 2.5 mg TID PO Last administered on 09/12/17at 15:03 ; Start 09/12/17 at 09:00; Stop 09/12/17 at 19:21; Status DC Metoprolol Tartrate (Lopressor) 25 mg BID PO Last administered on 09/20/17at 09: 46; Start 09/12/17 at 09:00; Stop 09/20/17 at 13:09; Status DC Montelukast Sodium (Singulair) 10 mg HS PO Last administered on 09/19/17at 20:06 ; Start 09/12/17 at 21:00; Stop 09/20/17 at 13:09; Status DC Nitroglycerin (Nitrostat) 0.4 mg PRN Q5MIN PRN SL CHEST PAIN; Start 09/11/17 at 23:45; Stop 09/20/17 at 13:09; Status DC Pantoprazole Sodium (Protonix) 20 mg DAILYAC PO Last administered on 09/20/17at 09:47; Start 09/12/17 at 07:30; Stop 09/20/17 at 13:09; Status DC Polyethylene Glycol (miraLAX) 17 gm BID PO Last administered on 09/20/17at 09:44 ; Start 09/12/17 at 09:00; Stop 09/20/17 at 13:09; Status DC Pregabalin (Lyrica) 100 mg TID PO Last administered on 09/12/17at 08:35; Start 09/12/17 at 09:00; Stop 09/12/17 at 15:02; Status DC Spironolactone (Aldactone) 25 mg DAILY07 PO Last administered on 09/20/17at 06: 14; Start 09/12/17 at 07:00; Stop 09/20/17 at 13:09; Status DC Zolpidem Tartrate (Ambien) 5 mg QHS PO ; Start 09/12/17 at 21:00; Stop 09/12/17 at 21:00; Status DC Non-Formulary Medication 1.25 mg PRN PRN NEB SHORTNESS OF BREATH; Start at 23:45; Status UNV Atorvastatin Calcium (Lipitor) 40 mg HS PO Last administered on 09/19/17at 20:06 ; Start 09/12/17 at 21:00; Stop 09/20/17 at 13:09; Status DC Cetirizine HCl (ZyrTEC) 10 mg DAILY PO Last administered on 09/20/17at 09:46; Start 09/12/17 at 09:00; Stop 09/20/17 at 13:09; Status DC Al Hydroxide/Mg Hydroxide (Mylanta Plus Xs) 10 ml PRN AFTMEAL PRN PO DYSPEPSIA ; Start 09/11/17 at 23:45; Stop 09/20/17 at 03:30; Status DC Miconazole Nitrate (Monistat-Derm) 1 penelope BID TP Last administered on 09/13/17at 07:59; Start 09/12/17 at 09:00; Stop 09/13/17 at 09:03; Status DC Mupirocin (Bactroban) 1 penelope BID TP Last administered on 09/20/17at 09:44; Start 09/12/17 at 09:00; Stop 09/20/17 at 13:09; Status DC Non-Formulary Medication 2 each BID PO ; Start 09/12/17 at 09:00; Status UNV Fish Oil (Fish Oil) 2,000 mg BID PO Last administered on 09/20/17at 09:46; Start 09/12/17 at 09:00; Stop 09/20/17 at 13:09; Status DC Artificial Tears (Artificial Tears) 2 drop PRN QID PRN OU DRY EYE; Start at 07:15; Stop 09/20/17 at 13:09; Status DC Theophylline (Theophylline Extended Release) 200 mg DAILY PO Last administered on 09/20/17at 09:56; Start 09/12/17 at 09:00; Stop 09/20/17 at 13:09; Status DC Albuterol Sulfate (Ventolin) 2.5 mg PRN Q6HRS PRN NEB SHORTNESS OF BREATH; Start 09/12/17 at 00:30; Stop 09/20/17 at 13:09; Status DC Albuterol/ Ipratropium (Duoneb) 3 ml STK-MED ONCE .ROUTE ; Start 09/12/17 at 05: 17; Stop 09/12/17 at 05:18; Status DC Insulin Detemir (Levemir) 70 units BID SQ Last administered on 09/20/17at 10:06 ; Start 09/12/17 at 09:00; Stop 09/20/17 at 13:09; Status DC Melatonin 6 mg HS PO Last administered on 09/19/17at 20:06; Start 09/12/17 at 21 :00; Stop 09/20/17 at 13:09; Status DC Trazodone HCl (Desyrel) 100 mg QHS PO Last administered on 09/19/17at 20:05; Start 09/12/17 at 21:00; Stop 09/20/17 at 13:09; Status DC Trazodone HCl (Desyrel) 100 mg PRN QHS PRN PO insomnia ; Start 09/12/17 at 21: 00; Stop 09/20/17 at 13:09; Status DC Pregabalin (Lyrica) 100 mg TID PO Last administered on 09/20/17at 12:42; Start 09/12/17 at 14:00; Stop 09/20/17 at 13:09; Status DC Vitamin D (Vitamin D3) 50,000 unit WEEKLY PO Last administered on 09/19/17at 09: 46; Start 09/19/17 at 09:00; Stop 09/20/17 at 13:09; Status DC Promethazine HCl (Phenergan) 12.5 mg PRN Q4HRS PRN PO NAUSEA/VOMITING; Start at 19:00; Stop 09/20/17 at 13:09; Status DC Risperidone (RisperDAL) 0.5 mg QHS PO Last administered on 09/19/17at 20:06; Start 09/12/17 at 21:00; Stop 09/20/17 at 13:09; Status DC Nystatin (Nystop) 1 penelope BID TP Last administered on 09/20/17at 09:44; Start at 09:00; Stop 09/20/17 at 13:09; Status DC Lactobacillus Rhamnosus (Culturelle) 1 cap BID PO Last administered on at 09:46; Start 09/14/17 at 09:00; Stop 09/20/17 at 13:09; Status DC Divalproex Sodium (Depakote Sprinkles) 250 mg HS PO Last administered on at 20:03; Start 09/15/17 at 21:00; Stop 09/18/17 at 11:15; Status DC Cetirizine HCl (ZyrTEC) 10 mg DAILY PO ; Start 09/16/17 at 09:00; Status Cancel Divalproex Sodium (Depakote Er) 500 mg QHS PO Last administered on 09/19/17at 20 :06; Start 09/18/17 at 21:00; Stop 09/20/17 at 13:09; Status DC Active Scripts Active Reported Loratadine 10 Mg Tablet 10 Mg PO DAILY Milk Of Magnesia (Magnesium Hydroxide) 400 Mg/5 Ml Oral.susp 2,400 Mg PO PRN QHS PRN Depakote Er (Divalproex Sodium) 500 Mg Tab.er.24h 500 Mg PO QHS Trazodone Hcl 100 Mg Tablet 100 Mg PO PRN QHS PRN Trazodone Hcl 100 Mg Tablet 100 Mg PO QHS Risperdal (Risperidone) 0.5 Mg Tablet 0.5 Mg PO HS Promethazine Hcl 12.5 Mg Tablet 12.5 Mg PO PRN Q4HRS PRN Artificial Tears (Polyvinyl Alcohol) 15 Ml Drops 2 Drop OU PRN QID PRN Nystatin 15 Gm Powder 1 [place]elope TP BID Analgesic [place] (Methyl Salicylate/Menthol) 28 Gm Oint...g. 1 Penelope TP PRN QID PRN Culturelle Capsule (L. Rhamnosus GG/Inulin) 1 Each Cap.sprink 1 Cap PO BID Mag-Al Plus Xs Suspension (Mag Hydrox/Al Hydrox/Simeth) 30 Ml Oral.susp 15 Ml PO PRN AFTMEALHC PRN Vitamin D (Cholecalciferol (Vitamin D3)) 50,000 Unit Capsule 50,000 Unit PO WEEKLY Albuterol Sulfate Neb Soln (Albuterol Sulfate) 2.5 Mg/3 Ml Vial.neb 2.5 Mg NEB PRN Q6HRS PRN Tylenol (Acetaminophen) 325 Mg Tablet 650 Mg PO PRN Q6HRS PRN Max Acetaminophen dose is 4000 mg in 24 hours from all sources for adults. Venlafaxine Hcl 75 Mg Tablet 75 Mg PO BID Naldo-24 (Theophylline Anhydrous) 200 Mg Cap.er.24h 200 Mg PO DAILY Pulmicort (Budesonide) 0.5 Mg/2 Ml Ampul.neb 0.5 Mg IH BID Pantoprazole Sodium 40 Mg Tablet.dr 20 Mg PO DAILYAC Novolog Flexpen (Insulin Aspart) 100 Unit/1 Ml Insuln.pen 22 Units SQ TIDAC NITROGLYCERIN SubLingual (Nitroglycerin) 0.4 Mg Tab.subl 0.4 Mg SL PRN Q5MIN PRN Montelukast Sodium Tablet (Montelukast Sodium) 10 Mg Tablet 10 Mg PO HS Miralax (Polyethylene Glycol 3350) 17 Gm Powd.pack 17 Gm PO BID Metoprolol Tartrate 25 Mg Tablet 25 Mg PO BID Melatonin 3 Mg Tablet 6 Mg PO HS Lyrica (Pregabalin) 100 Mg Capsule 100 Mg PO TID Lantus Solostar (Insulin Glargine,Hum.rec.anlog) 100 Unit/1 Ml Insuln.pen 70 Units SQ BID Gabapentin 100 Mg Capsule 100 Mg PO TID Furosemide 40 Mg Tablet 40 Mg PO BID92 Fish Oil 1,000 Mg Softgel ([place]-3/Dha/Epa/Fish Oil) 1 Each Capsule 2,000 Mg PO BID EXELON 9.5mg/24hr (Rivastigmine) 1 Each Patch.td24 1 Patch TD DAILY Duoneb 0.5-3(2.5) Mg/3 Ml (Albuterol/Ipratropium) 3 Ml Ampul.neb 3 Ml NEB QID Dulcolax (Bisacodyl) 10 Mg Supp.rect 10 Mg RC PRN DAILY PRN Celebrex (Celecoxib) 200 Mg Capsule 200 Mg PO DAILY Bactroban Nasal (Mupirocin Calcium) 1 Gm Oint...g. 1 Penelope NS BID Atorvastatin Calcium 40 Mg Tablet 40 Mg PO HS Aspirin Ec (Aspirin) 81 Mg Tablet.dr 81 Mg PO DAILY Aldactone (Spironolactone) 25 Mg Tablet 25 Mg PO DAILY07 I have reviewed the current psychotropics carefully including drug interactions. Risk benefit ratio favors no change other than as noted in my dictated progress note. Diagnosis: Problems: (1) MDD (major depressive disorder) (2) Bipolar affective disorder, mixed (3) Anxiety disorder (4) Major depressive disorder, recurrent episode ROSA GRAMAJO MD Sep 20, 2017 19:22
--- NOTE | 2017-09-20 22:20 | PN ---
DATE: 09/19/2017 This is a late entry for 09/19/2017 covers elements not covered in my initial note of 09/19/2017. SUBJECTIVE: I met with the patient in the evening of 09/19/2017 and staffed at treatment team meeting with the entire team morning of 09/19/2017. The patient remains somewhat withdrawn, but no aggression noted, little less paranoid. REVIEW OF SYSTEMS: Ambulation impaired with walker, is on O2 supplements. No CV, , pulmonary, eye system symptoms on review. MENTAL STATUS EXAM: Reasonably oriented. Speech coherent, pleasant, verbal. Abstraction fair, computation impaired, language function intact. Mood and affect showing improvement. LABORATORY DATA: Reviewed. IMPRESSION: Bipolar 1 disorder, mixed, in partial remission. Rest unchanged. PLAN: Continue psychotropics mentioned in my initial note. MAN Regina GRAMAJO MD DR: NITESH/anika JOB#: [id number] / [id number]
--- NOTE | 2017-09-22 08:07 | DS ---
DATE OF DISCHARGE: 09/19/2017 DISCHARGE SUMMARY/PSYCHIATRIC PROGRESS NOTE This is a late entry for 09/19/2017 and covers elements not covered in my initial note of 09/19/2017. REASON FOR ADMISSION: Please refer to the admission history for details. Briefly, the patient is a 62-year-old female, referred to us from [facility] by her primary care physician on account of worsening delusions, paranoia, threatening staff, isolating herself within the context of her worsening mood swings with prior diagnosis of borderline personality disorder, borderline intellectual functioning. The patient had failed outpatient psychiatric interventions. SIGNIFICANT FINDINGS AND CLINICAL COURSE: Following admission, the patient was seen daily individually by myself, followed medically per Dr. Paredes/Dr. Jeronimo. She was initially quite labile, anxious, irritable. Adjustments were made in her psychotropics. She seemed to respond to a combination of Depakote ER 500 mg p.o. at bedtime. The level on 09/17/2017 was 17, subtherapeutic, but was to be repeated on the higher dosage and should be followed closely as an outpatient. She is also on Exelon patch 9.5 mg a day, melatonin 6 mg at bedtime, Effexor 75 mg b.i.d., trazodone 100 mg at bedtime, plus 100 mg at bedtime p.r.n. insomnia, Risperdal 0.5 mg at bedtime. Gradually, the mood appeared to improve. She was much more cooperative. No suicidal or homicidal ideation. Not threatening. Paranoia was much improved. CONDITION AT DISCHARGE: Improved. Prior to discharge, ambulation impaired with walker. Some shortness of breath due to COPD, on O2 supplements. It is notable that she did have a UTI on admission, which was treated on Cipro. MENTAL STATUS EXAM: Oriented to herself and situation. Speech has some latency, coherent, pleasant, verbal, smiling. Abstraction fair, computation impaired, language function intact, attention span short. Mood and affect improved. FINAL DIAGNOSES: Bipolar 1 disorder, mixed with psychotic features, in partial remission; anxiety disorder, unspecified; history of borderline personality disorder, mild cognitive; rest nchanged including status post urinary tract infection. DISCHARGE MEDICATIONS: Please refer to the MRAD. DISCHARGE INSTRUCTIONS: Outpatient psychiatric and medical followup at the correction. Time for discharge day management is greater than 30 minutes. MAN Regina GRAMAJO MD DR: Karly JOB#: [id number] / [id number]
== END 2017-09-20 13:08 | disposition home or self-care (01) | DRG 885 ==
LOC: ER 17:54 → GEROPSY 22:16
PROVIDERS: ADMIT Psychiatry & Neurology Psychiatry; ATTEND Psychiatry & Neurology Psychiatry
DX: F31.64 Bipolar disorder, current episode mixed, severe, with psychotic features (principal); E11.42 Type 2 diabetes mellitus with diabetic polyneuropathy; I11.0 Hypertensive heart disease with heart failure; I50.9 Heart failure, unspecified; N39.0 Urinary tract infection, site not specified; F60.3 Borderline personality disorder; F41.9 Anxiety disorder, unspecified; J44.9 Chronic obstructive pulmonary disease, unspecified; N28.9 Disorder of kidney and ureter, unspecified; G47.33 Obstructive sleep apnea (adult) (pediatric); E55.9 Vitamin D deficiency, unspecified; E78.5 Hyperlipidemia, unspecified; K59.00 Constipation, unspecified; D50.9 Iron deficiency anemia, unspecified; G47.00 Insomnia, unspecified; F31.77 Bipolar disorder, in partial remission, most recent episode mixed; K21.9 Gastro-esophageal reflux disease without esophagitis; Z87.440 Personal history of urinary (tract) infections; Z99.81 Dependence on supplemental oxygen; Z88.2 Allergy status to sulfonamides; Z88.8 Allergy status to other drugs, medicaments and biological substances
CPT/HCPCS: 36415; 71045; 80053; 80061; 80164; 81001; 82306; 82607; 82947; 83036; 83540; 83550; 83735; 84436; 84443; 84480; 85007; 85025; 86593; 87086; 93005; 94640; J1815; J7620; J7626; J8597; 99285-25